=== PATIENT | male | born 1935 | race Caucasian/White ===

== ENCOUNTER → 2016-05-16 | Outpatient (CLI) | payer MEDICARE | END | disposition home or self-care (01) | LOC: LABWHC1 14:16 | PROVIDERS: ATTEND Internal Medicine Clinical Cardiac Electrophysiology | DX: I48.0 Paroxysmal atrial fibrillation (principal) | CPT/HCPCS: 36415; 84443 ==

== ENCOUNTER 2019-12-22 09:36 | Observation (INO) | payer MEDICARE ==
[2019-12-19 11:23] VITALS: BMI 29.8
[~2019-12-22 09:36] MED LIST: HYDROmorphone 0.5 MG/0.5 ML SYRINGE IVP PRN; LACTATED RINGERS 1,000 ML IV SCH; MIDAZOLAM 2 MG/2 ML VIAL IV PRN; SODIUM CHLORIDE 0.9% 1,000 ML IV SCH
[2019-12-22 10:27] LABS: Basophils # (A) 0.1 k/uL (0-0.2); Basophils % (A) 1 %; Eosinophils # (A) 0.4 k/uL (0-0.7); Eosinophils % (A) 5 %; HCT 46.3 % (39.0-53.0); HGB 15.4 gm/dL (13.0-17.5); Lymphocytes # (A) 1.9 k/uL (1.0-4.8); Lymphocytes % (A) 21 %; MCH 30.8 pg (25.0-35.0); MCHC 33.3 g/dL (31.0-37.0); MCV 92.5 fL (80.0-100.0); Monocytes # (A) 0.6 k/uL (0-1.0); Monocytes % (A) 7 %; Neutrophils % (A) 65 %; Platelet Count 271 k/uL (150-450); RDW 14.3 % (11.5-15.5); WBC 9.2 k/uL (3.8-10.6)
[2019-12-22 10:37] LABS: Calcium 9.2 mg/dL (8.4-10.2)
[2019-12-22 10:47] LABS: Potassium 5.2 mmol/L (3.5-5.1)
[2019-12-22] MEDS ORDERED: IV FLUID CONTINUATION 900 ML IV ONE (11:32)
[2019-12-22] MEDS ORDERED: ROCURONIUM 10 MG/ML (10 ML VIAL) IV ONE (11:32)
[2019-12-22] MEDS ORDERED: fentaNYL (PF) 50 MCG/ML 2 ML AMP ONE (11:32)
[2019-12-22] MEDS ORDERED: SUCCINYLCHOLINE CHLORIDE 100 MG/5 ML SYR IV ONE (11:32)
[2019-12-22] MEDS ORDERED: PROPOFOL 10 MG/ML 20 ML VIAL IV ONE (11:32)
[2019-12-22] MEDS ORDERED: ePHEDrine SULFATE/0.9% NACL/PF 50 MG/5 ML SYRINGE IV ONE (11:32)
[2019-12-22] MEDS ORDERED: LIDOCAINE 1% INJ 10MG/ML (20 ML MDV) SQ ONE (12:16)
[2019-12-22] MEDS ORDERED: HEPARIN SODIUM (1,000 UNIT/ML) 1,000 UNIT in SODIUM CHLORIDE 0.9% 1,000 ML IRRIGATION ONE (13:50)
[2019-12-22] MEDS ORDERED: ACETAMINOPHEN TAB 325 MG TAB PO PRN (14:29)
--- NOTE | 2019-12-22 14:38 | P.PRLE ---
RE: [place] Goss Dear Pietro Haynes has documented typical atrial flutter and today he underwent an atrial flutter ablation successfully His A. fib burden is about 13% He will continue ELIQUIS and his cardiac medications as before Thank you for entrusting me with the care of the patient Warm regards Sincerely Aristeo Goldsmith
[2019-12-22] MEDS ORDERED: ACETAMINOPHEN IV (For NPO) 1,000 MG in EMPTY BAG 1 BAG IVPB ONE (15:30)
--- NOTE | 2019-12-22 16:01 | CE ---
CARDIAC ELECTROPHYSIOLOGY REPORT Mr. Goss is an 84-year-old male patient who has a history of atrial fibrillation. His 2D echo showed preserved LV size and systolic function and his recent stress test was normal. He is on flecainide for suppression of atrial fibrillation. He was found to be in typical atrial flutter. He was brought in for an atrial flutter ablation. The patient is brought to the EP lab in a fasting state. Written informed consent was obtained prior to the procedure. The procedure was performed under general anesthesia. Venous sheaths placed in the right and left femoral veins and via these, diagnostic and mapping ablation catheters were placed, an intracardiac echo catheter was placed, coronary sinus catheter was placed. The pacemaker was interrogated and reprogrammed to VVI 40 ppm. At the end of the procedure, the pacemaker was re-interrogated once again and reprogrammed to DDDR mode at 50-130 ppm. Patient was in sinus rhythm the start of the study. Sinus node recovery times at a paced cycle length of 600 milliseconds were 2098 milliseconds. Corrected sinus node recovery times were prolonged. AV node Wenckebach block 520 milliseconds. Sinus cycle length 1109 milliseconds, CA 247 milliseconds, QRS 172 millisecond. The right bundle branch block type and QT 459 milliseconds. Intracardiac echocardiography was performed, the cava tricuspid isthmus was mapped, 3D electro anatomic mapping was performed. A mid isthmus pouch was noted with a step. RF ablation was performed. A complete line of block was made and thereafter pacing maneuvers were performed to confirm this block across the line. The RV lead was carefully avoided during RF ablation. Please note that high pressures were noted on the venous side. LV function on intracardiac echo was normal. Pericardial space was normal at the end of the procedure. All catheters were then removed. Venous closure device was used for 2 of the accesses successfully. Hemostasis was assured. Patient tolerated the procedure well without any acute complications. PLAN: Continue Eliquis. Continue cardiac medications and add Lasix at least 40 mg p.o. daily to his current regimen, BMP and magnesium tomorrow. MMODL / IJN: [id number] /
[2019-12-22] MEDS: APIXABAN 5 MG TAB PO SCH (20:50)
[2019-12-22] MEDS: ASPIRIN 81 MG PO SCH (20:50)
[2019-12-22] MEDS: FLECAINIDE 50 MG TAB PO SCH (20:51)
[2019-12-23] MEDS: FUROSEMIDE 40 MG TAB PO SCH (06:58)
[2019-12-23] MEDS: FLECAINIDE 50 MG TAB PO SCH ×2 (08:22→21:21)
[2019-12-23] MEDS: APIXABAN 5 MG TAB PO SCH (08:22)
[2019-12-23] MEDS: TAMSULOSIN 0.4 MG CAP.ER.24H PO SCH (08:22)
--- NOTE | 2019-12-23 09:02 | US ---
EXAMINATION TYPE: US lower ext pseudo artery LT DATE OF EXAM: 12/23/2019 COMPARISON: NONE CLINICAL HISTORY: r/o pseudoaneurysm. Left groin heart cath performed yesterday. EXAM PERFORMED: Grayscale and color Doppler duplex imaging performed of the groin, post cardiac salud ter to assess for pseudoaneurysm. SIDE PERFORMED: Left Color and Waveform Doppler performed to assess for the presence of pseudoaneurysm; Is there ultrasound evidence of a pseudoaneurysm: Bilobular pseudoaneurysm visualized off of CVA= 6. 4 x 2.3 cm with neck measuring about 0.6 x 0.8 cm. Is there evidence of AV shunting: no Is there a fluid collection present: no IMPRESSION: Bilobed partially thrombosed pseudoaneurysm as measured above.
--- NOTE | 2019-12-23 10:01 | P.EPPROC ---
- EP Procedure Note Electrophysiology Procedure Note: Pacemaker interrogation and reprogramming of the atrial flutter ablation Patient underwent atrial flutter ablation Following that is [employer] medical pacemaker was interrogated Atrial pacing threshold 0.75 V at 0.8 ms, P waves 3.6 mV and pacing impedance 390 ohms R waves 12 mV, pacing threshold 1.25 V at 0.4 ms and pacing impedance of 540 ohms Programming DDDR 5210 PPM long AV delay to avoid RV pacing
[2019-12-23 10:17] LABS: HCT 39.8 % (39.0-53.0); HGB 13.4 gm/dL (13.0-17.5); MCH 31.3 pg (25.0-35.0); MCHC 33.7 g/dL (31.0-37.0); MCV 92.8 fL (80.0-100.0); Mean Platelet Volume 7.4; Platelet Count 215 k/uL (150-450); RBC 4.29 m/uL (4.30-5.90); RDW 14.4 % (11.5-15.5); WBC 9.3 k/uL (3.8-10.6)
[2019-12-23 10:23] LABS: Albumin 3.8 g/dL (3.5-5.0); Magnesium 1.8 mg/dL (1.6-2.3); Potassium 4.6 mmol/L (3.5-5.1); Total Bilirubin 1.4 mg/dL (0.2-1.3); Total Protein 6.9 g/dL (6.3-8.2)
--- NOTE | 2019-12-23 13:29 | P.PN ---
Subjective This is a pleasant 84-year-old male past medical history significant for paroxysmal atrial fibrillation successfully suppressed on flecainide and typical atrial flutter, complete heart block status post permanent pacemaker implantation, hypertension and dyslipidemia. He was brought into the hospital for an elective atrial flutter ablation. He was seen and evaluated this morning. He had a small hematoma to the left groin yesterday after the procedure that was manually compressed. He has significant bruising and tenderness to the area. An ultrasound was requested and revealed a partially thrombosed pseudoaneurysm. Blood pressure 118/71 heart rate 70 afebrile maintaining oxygen saturation on room air. He denies chest pain, shortness of breath, dizziness or palpitations. Currently maintained on Eliquis 5 mg twice a day, aspirin 81 mg at bedtime, flecainide 75 mg twice a day and Lasix 40 mg daily. Laboratory data reviewed, WBC 9.3, hemoglobin 13.4, platelets 215, sodium 137, potassium 4.6, creatinine 1.05, magnesium 1.8 and TSH 0.807. GENERAL: Well-appearing, well-nourished and in no acute distress. NECK: Supple without JVD or thyromegaly. LUNGS: Breath sounds clear to auscultation bilaterally. Respiration equal and un labored. No wheezes, rales or rhonchi. HEART: Regular rate and rhythm with systolic ejection murmur at the left sternal border, no rubs or gallops. S1 and S2 heard. EXTREMITIES: Normal range of motion, no edema. No clubbing or cyanosis. Peripheral pulses intact. Right femoral access site clean, dry and intact with strong femoral pulse no evidence of hematoma and mild ecchymosis. Left femoral access site clean, dry and intact with strong femoral pulse, normal area of swelling the size of a quarter and significant ecchymosis down the medial aspect of the thigh with tenderness on palpation. ASSESSMENT s/p atrial flutter ablation Left groin psuedoaneurysm Permanent pacemaker implantation Hypertension Dyslipidemia PLAN Consult vascular surgery for evaluation of pseudoaneurysm. Continue current medical regimen. Repeat CBC this evening and in the morning. Nurse Practitioner note has been reviewed, I agree with a documented findings and plan of care. Patient was seen and examined. Objective - Vital Signs Vital signs: Vital Signs Temp 97.9 F 12/23/19 07:51 Pulse 70 12/23/19 07:51 Resp 18 12/23/19 07:51 BP 118/71 12/23/19 07:51 Pulse Ox 93 L 12/23/19 07:51 Intake & Output 12/22/19 12/23/19 12/23/19 18:59 06:59 18:59 Intake Total 575 580 Output Total 75 Balance 575 505 Weight 94.9 kg Intake: IV 575 Oral 580 Output: Urine 75 Other: Voiding Method Urinal # Voids 1 1 1 - Labs CBC & Chem 7: 12/23/19 09:18 12/23/19 09:18 Labs: Abnormal Lab Results - Last 24 Hours (Table) 12/23/19 12/23/19 Range/Units 09:18 09:18 RBC 4.29 L (4.30-5.90) m/uL BUN 23 H (9-20) mg/dL Glucose 110 H (74-99) mg/dL Total Bilirubin 1.4 H (0.2-1.3) mg/dL
--- NOTE | 2019-12-23 15:54 | P.GSCN ---
<Shelia Ivan - Last Filed: 12/23/19 15:52> History of Present Illness Consult date: 12/23/19 Reason for Consult: Pseudoaneurysm of left groin Requesting physician: Aristeo Goldsmith History of present illness: This is a pleasant 84-year-old male patient who has a history of atrial fibrillation is been on flecainide for suppression of his atrial fibrillation, he was found to be in typical atrial flutter. He was brought in for an atrial flutter ablation with Dr. Goldsmith yesterday. It was noted that there was high pressures on the venous side a venous closure device was used with reported good hemostasis. He underwent pacemaker interrogation reprogramming of the atrial flutter ablation today. He is on Eliquis. He was noted that he had increased ecchymosis and hematoma at the left groin access site. Patient denies any active bleeding. He states he is able to get up and ambulate, only states he has pain with palpation to the bilateral groins. He is able to move bilateral lower extremities without difficulty. An ultrasound of the left lower extremity artery which showed by low partially thrombosed pseudoaneurysm. Bilobular pseudoaneurysm visualized off of CVA = 6.42.3 cm with neck measuring about 0.6 x 0.8 cm Past Medical History Past Medical History: Cancer Additional Past Medical History / Comment(s): see Dr Goldsmith H&P, skin cancer History of Any Multi-Drug Resistant Organisms: None Reported Past Surgical History: Appendectomy, Hernia Repair, Joint Replacement, Orthopedic Surgery, Pacemaker Additional Past Surgical History / Comment(s): skin cancer removed from shoulder, left hip replacement, tito cataracts Past Anesthesia/Blood Transfusion Reactions: Previous Problems w/ Anesthesia, Motion Sickness Additional Past Anesthesia/Blood Transfusion Reaction / Comm: spinal headache with spinal anesthesia Type of Cardiac Device: Permanent Pacemaker Device Placement Date:: unknown Smoking Status: Former smoker - Past Family History Mother Family Medical History: Diabetes Mellitus Sister(s) Family Medical History: Cancer Additional Family Medical History / Comment(s): Bone CA Brother(s) Additional Family Medical History / Comment(s): Heart issues. Ca of the throat Son(s) Family Medical History: Cancer Medications and Allergies Home Medications Medication Instructions Recorded Confirmed Type RX: Aspirin 81 mg PO HS 06/29/13 12/22/19 History RX: Cholecalciferol [Vitamin D3 2,000 unit PO DAILY 06/29/13 12/22/19 History (25 Mcg = 1000 Iu)] RX: Cyanocobalamin [Vitamin B-12] 1,000 mcg PO DAILY 06/29/13 12/22/19 History RX: Vitamin E (Dl,Tocopheryl Acet) 400 unit PO DAILY 06/29/13 12/22/19 History [Vitamin E] RX: Vits A,C,E/Lutein/Minerals 1 tab PO DAILY 04/09/15 12/22/19 History [Ocuvite with Lutein Tablet] RX: Apixaban [Eliquis] 5 mg PO BID 12/19/19 12/22/19 History RX: Flecainide [Tambocor] 75 mg PO Q12HR 12/19/19 12/22/19 History RX: Tamsulosin HCl [Flomax] 0.4 mg PO DAILY 12/19/19 12/22/19 History RX: traMADol HCL [Ultram] 50 mg PO TID 12/19/19 12/22/19 History Furosemide [Lasix] 40 mg PO DAILY #90 tablet 12/22/19 Rx Allergies Allergy/AdvReac Type Severity Reaction Status Date / Time No Known Allergies Allergy Verified 12/19/19 11:06 Surgical - Exam Vital Signs Temp Pulse Resp BP Pulse Ox 97.9 F 74 16 165/92 96 12/22/19 10:18 12/22/19 10:18 12/22/19 10:18 12/22/19 10:18 12/22/19 10:18 General appearance: The patient is alert, oriented, in no acute distress. HET: Head is normocephalic and atraumatic. Neck: Supple without lymphadenopathy. Trachea midline. Heart: S1 S2. Regular rate and rhythm. Lungs: No crackles or wheezes are heard. Abdomen: Soft, nontender, nondistended with bowel sounds. Groin: Right groin with small area of low since, no active bleeding, no palpable hematoma. Left groin with significant ecchymosis into the thigh, no active bleeding, palpable hematoma in the left groin. Extremities: Normal skin color and turgor. No cyanosis, rash, ulceration, clubbing, or edema. Good capillary refill bilateral lower extremities. Patient is able to move bilateral lower extremities and toes without any difficulty. Palpable bilateral femoral and DP pulses. Neurological: No focal deficits. Strength and sensation are grossly intact. Results Ultrasound of the left lower extremity reviewed - Labs 12/23/19 09:18 12/23/19 09:18 Abnormal Lab Results - Last 24 Hours (Table) 12/23/19 12/23/19 Range/Units 09:18 09:18 RBC 4.29 L (4.30-5.90) m/uL BUN 23 H (9-20) mg/dL Glucose 110 H (74-99) mg/dL Total Bilirubin 1.4 H (0.2-1.3) mg/dL Diabetes panel 12/23/19 Range/Units 09:18 Sodium 137 (137-145) mmol/L Potassium 4.6 (3.5-5.1) mmol/L Chloride 106 (98-107) mmol/L Carbon Dioxide 23 (22-30) mmol/L BUN 23 H (9-20) mg/dL Creatinine 1.05 (0.66-1.25) mg/dL Glucose 110 H (74-99) mg/dL Calcium 9.0 (8.4-10.2) mg/dL AST 28 (17-59) U/L ALT 12 (4-49) U/L Alkaline Phosphatase 78 (38-126) U/L Total Protein 6.9 (6.3-8.2) g/dL Albumin 3.8 (3.5-5.0) g/dL Thyroid panel 12/23/19 Range/Units 09:18 TSH 0.807 (0.465-4.680) mIU/L Calcium panel 12/23/19 Range/Units 09:18 Calcium 9.0 (8.4-10.2) mg/dL Albumin 3.8 (3.5-5.0) g/dL Pituitary panel 12/23/19 Range/Units 09:18 Sodium 137 (137-145) mmol/L Potassium 4.6 (3.5-5.1) mmol/L Chloride 106 (98-107) mmol/L Carbon Dioxide 23 (22-30) mmol/L BUN 23 H (9-20) mg/dL Creatinine 1.05 (0.66-1.25) mg/dL Glucose 110 H (74-99) mg/dL Calcium 9.0 (8.4-10.2) mg/dL TSH 0.807 (0.465-4.680) mIU/L Adrenal panel 12/23/19 Range/Units 09:18 Sodium 137 (137-145) mmol/L Potassium 4.6 (3.5-5.1) mmol/L Chloride 106 (98-107) mmol/L Carbon Dioxide 23 (22-30) mmol/L BUN 23 H (9-20) mg/dL Creatinine 1.05 (0.66-1.25) mg/dL Glucose 110 H (74-99) mg/dL Calcium 9.0 (8.4-10.2) mg/dL Total Bilirubin 1.4 H (0.2-1.3) mg/dL AST 28 (17-59) U/L ALT 12 (4-49) U/L Alkaline Phosphatase 78 (38-126) U/L Total Protein 6.9 (6.3-8.2) g/dL Albumin 3.8 (3.5-5.0) g/dL Assessment and Plan Assessment: 1. Left lower extremity Bilobed partially thrombosed pseudoaneurysm 2. Atrial fibrillation, status post atrial flutter ablation Plan: Left lower extremity speudo artery ultrasound reviewed. Awaiting Dr. Najera to further evaluate patient. Apply pressure dressing. Repeat LLE US tomorrow. Consult Interventional Radiology. Further recommendations to follow. Thank you for this consultation and allowing us take part in the plan of care of the patient during his hospital stay. The impression and plan of care has been dictated as directed. I performed a history and examination of this patient, discussed the same with the dictator. I agree with the dictator's note ,documented as a scribe. Any additional findings or plans will be noted. <Yolande Koo - Last Filed: 12/23/19 16:24> Surgical - Exam Vital Signs Temp Pulse Resp BP Pulse Ox 97.9 F 74 16 165/92 96 12/22/19 10:18 12/22/19 10:18 12/22/19 10:18 12/22/19 10:18 12/22/19 10:18 Results - Labs 12/23/19 09:18 12/23/19 09:18 Abnormal Lab Results - Last 24 Hours (Table) 11/10/20 11/10/20 Range/Units 09:18 09:18 RBC 4.29 L (4.30-5.90) m/uL BUN 23 H (9-20) mg/dL Glucose 110 H (74-99) mg/dL Total Bilirubin 1.4 H (0.2-1.3) mg/dL Diabetes panel 12/23/19 Range/Units 09:18 Sodium 137 (137-145) mmol/L Potassium 4.6 (3.5-5.1) mmol/L Chloride 106 (98-107) mmol/L Carbon Dioxide 23 (22-30) mmol/L BUN 23 H (9-20) mg/dL Creatinine 1.05 (0.66-1.25) mg/dL Glucose 110 H (74-99) mg/dL Calcium 9.0 (8.4-10.2) mg/dL AST 28 (17-59) U/L ALT 12 (4-49) U/L Alkaline Phosphatase 78 (38-126) U/L Total Protein 6.9 (6.3-8.2) g/dL Albumin 3.8 (3.5-5.0) g/dL Thyroid panel 12/23/19 Range/Units 09:18 TSH 0.807 (0.465-4.680) mIU/L Calcium panel 12/23/19 Range/Units 09:18 Calcium 9.0 (8.4-10.2) mg/dL Albumin 3.8 (3.5-5.0) g/dL Pituitary panel 12/23/19 Range/Units 09:18 Sodium 137 (137-145) mmol/L Potassium 4.6 (3.5-5.1) mmol/L Chloride 106 (98-107) mmol/L Carbon Dioxide 23 (22-30) mmol/L BUN 23 H (9-20) mg/dL Creatinine 1.05 (0.66-1.25) mg/dL Glucose 110 H (74-99) mg/dL Calcium 9.0 (8.4-10.2) mg/dL TSH 0.807 (0.465-4.680) mIU/L Adrenal panel 12/23/19 Range/Units 09:18 Sodium 137 (137-145) mmol/L Potassium 4.6 (3.5-5.1) mmol/L Chloride 106 (98-107) mmol/L Carbon Dioxide 23 (22-30) mmol/L BUN 23 H (9-20) mg/dL Creatinine 1.05 (0.66-1.25) mg/dL Glucose 110 H (74-99) mg/dL Calcium 9.0 (8.4-10.2) mg/dL Total Bilirubin 1.4 H (0.2-1.3) mg/dL AST 28 (17-59) U/L ALT 12 (4-49) U/L Alkaline Phosphatase 78 (38-126) U/L Total Protein 6.9 (6.3-8.2) g/dL Albumin 3.8 (3.5-5.0) g/dL
[2019-12-23] MEDS ORDERED: MORPHINE SULFATE 2 MG/ML SYRINGE IVP STA (16:17)
[2019-12-23] MEDS: HYDROcodone/APAP 5-325MG 1 EACH TAB PO PRN (18:02)
[2019-12-23 18:46] LABS: HCT 40.4 % (39.0-53.0); HGB 13.1 gm/dL (13.0-17.5); MCH 29.9 pg (25.0-35.0); MCHC 32.6 g/dL (31.0-37.0); MCV 91.8 fL (80.0-100.0); Platelet Count 231 k/uL (150-450); RDW 14.8 % (11.5-15.5); WBC 10.7 k/uL (3.8-10.6)
[2019-12-23] MEDS: ASPIRIN 81 MG PO SCH (20:50)
[2019-12-24] MEDS: FUROSEMIDE 40 MG TAB PO SCH (06:31)
[2019-12-24 08:00] LABS: HCT 42.7 % (39.0-53.0); HGB 14.1 gm/dL (13.0-17.5); MCH 30.1 pg (25.0-35.0); MCHC 33.1 g/dL (31.0-37.0); Mean Platelet Volume 7.4; Platelet Count 245 k/uL (150-450); RDW 14.7 % (11.5-15.5); WBC 10.4 k/uL (3.8-10.6)
--- NOTE | 2019-12-24 08:40 | US ---
EXAMINATION TYPE: US lower ext pseudo artery LT DATE OF EXAM: 12/24/2019 COMPARISON: Prior exam 12/23/2019 CLINICAL HISTORY: Pseudoaneurysm. reassess pseudo from yesterday EXAM PERFORMED: Grayscale and color Doppler duplex imaging performed of the groin, post cardiac salud ter to assess for pseudoaneurysm. SIDE PERFORMED: Left Color and Waveform Doppler performed to assess for the presence of pseudoaneurysm; Is there ultrasound evidence of a pseudoaneurysm: YES Is there evidence of AV shunting: NO Bilobed pseudo still persists today IMPRESSION: Left groin pseudoaneurysm again noted.
[2019-12-24] MEDS: FLECAINIDE 50 MG TAB PO SCH ×2 (08:54→20:25)
[2019-12-24] MEDS: TAMSULOSIN 0.4 MG CAP.ER.24H PO SCH (08:54)
--- NOTE | 2019-12-24 09:40 | P.PN ---
Subjective Progress Note Date: 12/24/19 Principal diagnosis: Pseudoaneurysm Was seen and examined this morning with Dr. Koo. He denies any severe pain to the left groin. It is tender however to touch. He has had a pressure dressing on overnight. Repeat arterial ultrasound of pseudoaneurysm completed this morning. Interventional radiology has been consult for thrombin injection. Eliquis is on hold at this time. Objective - Vital Signs Vital signs: Vital Signs Temp 98.1 F 12/24/19 08:19 Pulse 91 12/24/19 08:19 Resp 20 12/24/19 08:19 BP 113/69 12/24/19 08:19 Pulse Ox 93 L 12/24/19 08:19 Intake & Output 12/23/19 12/24/19 12/24/19 18:59 06:59 18:59 Output Total 1125 Balance -1125 Output: Urine 1125 Other: Voiding Method Urinal # Voids 1 1 - Exam General appearance: The patient is alert, oriented, in no acute distress. HET: Head is normocephalic and atraumatic. Neck: Supple Heart: S1 S2. Regular rate and rhythm. With systolic murmur. Lungs: No crackles or wheezes are heard. Abdomen: Soft, nontender, nondistended with bowel sounds. No peritoneal signs. No palpable organomegaly or masses. Extremities: Normal bilateral dorsalis pedis pulses. Right groin with small area ecchymosis. Left groin was significant ecchymosis into the medial thigh no active bleeding noted from site. Tenderness to palpation. Neurological: No focal deficits. Strength and sensation are grossly intact. - Labs CBC & Chem 7: 12/24/19 07:24 12/23/19 09:18 Labs: Abnormal Lab Results - Last 24 Hours (Table) 12/23/19 12/23/19 12/23/19 Range/Units 09:18 09:18 18:26 WBC 10.7 H (3.8-10.6) k/uL RBC 4.29 L (4.30-5.90) m/uL BUN 23 H (9-20) mg/dL Glucose 110 H (74-99) mg/dL Total Bilirubin 1.4 H (0.2-1.3) mg/dL Assessment and Plan Assessment: 1. Left lower extremity Bilobed partially thrombosed pseudoaneurysm 2. Atrial fibrillation, status post atrial flutter ablation Plan: Left lower extremity speudo artery ultrasound reviewed. Interventional Radiology consult for thrombin injection. Continue with pressure dressing to the left groin. Continue to hold Eliquis. Further recommendations to follow. Thank you for this consultation and allowing us take part in the plan of care of the patient during his hospital stay. The impression and plan of care has been dictated as directed. I performed a history and examination of this patient, discussed the same with the dictator. I agree with the dictator's note ,documented as a scribe. Any additional findings or plans will be noted.
[2019-12-24] MEDS ORDERED: THROMBIN (BOVINE) 5,000 UNIT VIAL MISCELLANE ONE (11:30)
--- NOTE | 2019-12-24 13:30 | P.PN ---
Subjective This is a pleasant 84-year-old male past medical history significant for paroxysmal atrial fibrillation successfully suppressed on flecainide and typical atrial flutter, complete heart block status post permanent pacemaker implantation, hypertension and dyslipidemia. He was brought into the hospital for an elective atrial flutter ablation. He is seen and examined resting comfortably lying flat in bed in no acute distress. He was seen yesterday by Dr. Koo and a pressure dressing was applied to the left groin access site. He continues to have some mild discomfort to the area but states it is improving. Dr. Koo is recommending interventional radiology consultation for thrombin injection. Eliquis was held last night and again this morning. Blood pressure 114/77 heart rate 86 afebrile maintaining oxygen saturation on room air. Laboratory data reviewed, WBC 10.4, hemoglobin 14.1, platelets 245. Telemetry tracings indicate he is in atrial fibrillation with controlled rates. GENERAL: Well-appearing, well-nourished and in no acute distress. NECK: Supple without JVD or thyromegaly. LUNGS: Breath sounds clear to auscultation bilaterally. Respiration equal and unlabored. No wheezes, rales or rhonchi. HEART: Irregular rate and rhythm with systolic ejection murmur at the left sternal border, no rubs or gallops. S1 and S2 heard. EXTREMITIES: Normal range of motion, no edema. No clubbing or cyanosis. Peripheral pulses intact. Right femoral access site clean, dry and intact with strong femoral pulse no evidence of hematoma and mild ecchymosis. Left femoral access site clean, dry and intact with strong femoral pulse, area of thrill felt on palpation with pressure dressing in place. ASSESSMENT s/p atrial flutter ablation Left groin psuedoaneurysm Permanent pacemaker implantation Hypertension Dyslipidemia PLAN Patient is at increased risk for stroke status post ablation if anticoagulation is held. We recommend resuming as soon as he comes back from his interventional radiology procedure. Repeat CBC in the morning. Nurse Practitioner note has been reviewed, I agree with a documented findings and plan of care. Patient was seen and examined. Objective - Vital Signs Vital signs: Vital Signs Temp 98.1 F 12/24/19 08:19 Pulse 86 12/24/19 13:00 Resp 16 12/24/19 13:00 BP 114/77 12/24/19 13:00 Pulse Ox 94 L 12/24/19 12:45 Intake & Output 12/23/19 12/24/19 12/24/19 18:59 06:59 18:59 Intake Total 340 Output Total 1125 1100 Balance -1125 -760 Intake: Oral 340 Output: Urine 1125 1100 Other: Voiding Method Urinal # Voids 1 1 - Labs CBC & Chem 7: 12/24/19 07:24 12/23/19 09:18 Labs: Abnormal Lab Results - Last 24 Hours (Table) 12/23/19 Range/Units 18:26 WBC 10.7 H (3.8-10.6) k/uL
--- NOTE | 2019-12-24 13:48 | US ---
EXAMINATION TYPE: US inj pseudoaneurysm DATE OF EXAM: 12/24/2019 COMPARISON: Exam from 12/24/2019 and 12/23/2019 at earlier time CLINICAL HISTORY: Left groin pseudoaneurysm status post cardiac catheterization. EXAM PERFORMED: left groin pseudoaneurysm thrombin injection Grayscale and color Doppler duplex imaging performed of the groin, post cardiac catheter to assess fo r pseudoaneurysm. SIDE PERFORMED: Left Following informed consent the skin overlying a suitable path to the aneurysm (was localized and the overlying skin was prepped and draped. Lidocaine was used for local anesthesia. 25-gauge needle was a dvanced under direct ultrasound guidance into the pseudoaneurysm and 100 units of thrombin were injec hamzah. Immediate postprocedure Doppler imaging shows plaque formation within the pseudoaneurysm. Patient remained neurovascularly intact distally. There is no immediate complication. Hemostasis achi eved. Patient remained in stable condition. IMPRESSION: Status post left groin pseudoaneurysm injection, thrombosis of left groin pseudoaneurysm. Recommend left groin ultrasound 12/25/2019 to assess for durability of treatment, his procedure perf ormed by the undersigned.
[2019-12-24 20:16] VITALS: RESP 18
[2019-12-24] MEDS: APIXABAN 5 MG TAB PO SCH (20:25)
[2019-12-24] MEDS: ASPIRIN 81 MG PO SCH (20:25)
[2019-12-24] MEDS: HYDROcodone/APAP 5-325MG 1 EACH TAB PO PRN (22:24)
[2019-12-25 04:33] VITALS: BP 102/57; TEMP 97.5
[2019-12-25] MEDS: FUROSEMIDE 40 MG TAB PO SCH (06:08)
[2019-12-25] MEDS: TAMSULOSIN 0.4 MG CAP.ER.24H PO SCH (08:17)
[2019-12-25] MEDS: APIXABAN 5 MG TAB PO SCH (08:17)
[2019-12-25] MEDS: FLECAINIDE 50 MG TAB PO SCH (08:17)
--- NOTE | 2019-12-25 09:10 | US ---
EXAMINATION TYPE: US lower ext pseudo artery LT DATE OF EXAM: 12/25/2019 COMPARISON: US yesterday CLINICAL HISTORY: pseudoaneurysm. Recheck of left groin pseudoaneurysm, thrombin injection done yeste rday EXAM PERFORMED: Grayscale and color Doppler duplex imaging performed of the groin, post cardiac salud ter to assess for pseudoaneurysm. SIDE PERFORMED: Left Color and Waveform Doppler performed to assess for the presence of pseudoaneurysm; Left groin: 5.5 x 1.5 x 3.8cm thrombosed pseudoaneurysm IMPRESSION: The pseudoaneurysm appears to be thrombosed with no internal flow identified.
[2019-12-25 09:24] VITALS: PULSE 60
[2019-12-25 09:42] LABS: HCT 50.1 % (39.0-53.0); HGB 16.8 gm/dL (13.0-17.5); MCHC 33.4 g/dL (31.0-37.0); MCV 92.7 fL (80.0-100.0); Mean Platelet Volume 6.9; Platelet Count 286 k/uL (150-450); RDW 14.3 % (11.5-15.5); WBC 11.6 k/uL (3.8-10.6)
--- NOTE | 2019-12-30 12:51 | P.DS ---
Providers Date of admission: 12/24/19 14:29 Attending physician: Aristeo Goldsmith Consults: 12/23/19 09:56 Consult Physician Routine Consulting Provider: Thiago Najera Consult Reason/Comments: pseudoaneurysm Do you want consulting provider notified?: Already Contacted Primary care physician: Pietro Clinton [facility] Course: This is a pleasant 84-year-old male past medical history significant for paroxysmal atrial fibrillation successfully suppressed on flecainide and typical atrial flutter, complete heart block status post permanent pacemaker implantation, hypertension and dyslipidemia. He was brought into the hospital for an elective atrial flutter ablation. He is seen and examined resting comfortably lying flat in bed in no acute distress. He underwent successful pseudoaneurysm thrombin injection per Interventional radiology. Repeat groin ultrasound reveals pseudoaneurysm appears to be thrombosed with no internal flow identified. Blood pressure 102/57 heart rate 60 afebrile maintaining oxygen saturation on room air. Laboratory data reviewed, WBC 11.6, hemoglobin 16.8 and platelets 286. GENERAL: Well-appearing, well-nourished and in no acute distress. NECK: Supple without JVD or thyromegaly. LUNGS: Breath sounds clear to auscultation bilaterally. Respiration equal and unlabored. No wheezes, rales or rhonchi. HEART: Irregular rate and rhythm with systolic ejection murmur at the left sternal border, no rubs or gallops. S1 and S2 heard. EXTREMITIES: Normal range of motion, no edema. No clubbing or cyanosis. Peripheral pulses intact. Right femoral access site clean, dry and intact with strong femoral pulse no evidence of hematoma and mild ecchymosis. No thrill on palpation. ASSESSMENT s/p atrial flutter ablation Left groin psuedoaneurysm Permanent pacemaker implantation Hypertension Dyslipidemia PLAN Hemodynamically stable. Continue Eliquis. Follow up appointment with Dr. Goldsmith next week. Follow up with Dr. Koo in 2 weeks. Nurse Practitioner note has been reviewed, I agree with a documented findings and plan of care. Patient was seen and examined. Plan - Discharge Summary Discharge Rx Participant: No New Discharge Prescriptions: New Furosemide [Lasix] 40 mg PO DAILY #90 tablet Continue Cholecalciferol [Vitamin D3 (25 Mcg = 1000 Iu)] 2,000 unit PO DAILY Cyanocobalamin [Vitamin B-12] 1,000 mcg PO DAILY Vitamin E (Dl,Tocopheryl Acet) [Vitamin E] 400 unit PO DAILY Aspirin 81 mg PO HS Vits A,C,E/Lutein/Minerals [Ocuvite with Lutein Tablet] 1 tab PO DAILY traMADol HCL [Ultram] 50 mg PO TID Flecainide [Tambocor] 75 mg PO Q12HR Apixaban [Eliquis] 5 mg PO BID Tamsulosin HCl [Flomax] 0.4 mg PO DAILY Discharge Medication List Aspirin 81 mg PO HS 06/29/13 [History] Cholecalciferol [Vitamin D3 (25 Mcg = 1000 Iu)] 2,000 unit PO DAILY 06/29/13 [History] Cyanocobalamin [Vitamin B-12] 1,000 mcg PO DAILY 06/29/13 [History] Vitamin E (Dl,Tocopheryl Acet) [Vitamin E] 400 unit PO DAILY 06/29/13 [History] Vits A,C,E/Lutein/Minerals [Ocuvite with Lutein Tablet] 1 tab PO DAILY 04/09/15 [History] Apixaban [Eliquis] 5 mg PO BID 12/19/19 [History] Flecainide [Tambocor] 75 mg PO Q12HR 12/19/19 [History] Tamsulosin HCl [Flomax] 0.4 mg PO DAILY 12/19/19 [History] traMADol HCL [Ultram] 50 mg PO TID 12/19/19 [History] Furosemide [Lasix] 40 mg PO DAILY #90 tablet 12/22/19 [Rx] Follow up Appointment(s)/Referral(s): Aristeo Goldsmith MD [STAFF PHYSICIAN] - 12/30/19 2:30 pm (Follow-up with Dr. Goldsmith/Dora Hall/Bridget Carrasco Follow-up in 1 week New medication Lasix 40 mg by mouth daily) Yolande Koo DO [STAFF PHYSICIAN] - 01/07/20 9:00 am Patient Instructions/Handouts: Cardiac Ablation (DC) Activity/Diet/Wound Care/Special Instructions: Post EP study - Ablation instructions 1. Keep access sites dry for 2 days. 2. No heavy lifting or straining for 2 days. 3. Avoid bending the hips repeatedly for 2 days. 4. You may go up and down stairs slowly Call if the following is noted 1. Bleeding, increasing swelling or pain at the access sites. 2. Increasing chest discomfort, especially upon taking a deep breath. 3. Increasing shortness of breath, at rest or with exertion. 4. Undue cough / phlegm 5. Difficulty or pain while swallowing. 6. Pain or change in color in the extremities. 7. Fever, chills, rigors. 8. Increasing headache or neurologic symptoms. 9. Dizziness, fainting, palpitations New medication Lasix 40 mg daily Discharge Disposition: HOME SELF-CARE
== END 2019-12-25 11:47 | disposition home or self-care (01) ==
LOC: CATHEP 09:36 → 3NCARDOBS 15:04 → CATHEP 12-24 14:29 → 3NCARDOBS 12-24 14:29
PROVIDERS: ADMIT Internal Medicine Clinical Cardiac Electrophysiology; ATTEND Internal Medicine Clinical Cardiac Electrophysiology
DX: I48.3 Typical atrial flutter (principal); T81.718A Complication of other artery following a procedure, not elsewhere classified, initial encounter; I44.2 Atrioventricular block, complete; I10 Essential (primary) hypertension; E78.5 Hyperlipidemia, unspecified; I48.0 Paroxysmal atrial fibrillation; Z85.828 Personal history of other malignant neoplasm of skin; Z96.642 Presence of left artificial hip joint; Z98.890 Other specified postprocedural states; Z98.42 Cataract extraction status, left eye; Z98.41 Cataract extraction status, right eye; Z95.0 Presence of cardiac pacemaker; Z87.891 Personal history of nicotine dependence; Z83.3 Family history of diabetes mellitus; Z80.8 Family history of malignant neoplasm of other organs or systems; Z80.0 Family history of malignant neoplasm of digestive organs; Z79.01 Long term (current) use of anticoagulants; Z79.82 Long term (current) use of aspirin; Z79.891 Long term (current) use of opiate analgesic; Z79.899 Other long term (current) drug therapy
CPT/HCPCS: 93005; 93662; 93613; 93653; 80053; 80048; 83735; 84443; 85025; 85027 ×3; 93975 ×3; 93926 ×3; 36002; G0378 ×2; C1894; C1769 ×2; C1760; C1730; C1759; C1893; C1732; J0690; J2001; J3010; J2270; J1644; J0330; J2704

== ENCOUNTER 2020-06-03 20:28 | Emergency (ER) | payer MEDICARE ==
[2020-06-03] MEDS ORDERED: MORPHINE SULFATE 4 MG/ML SYRINGE IV STA (20:30)
[2020-06-03] MEDS ORDERED: SODIUM CHLORIDE 0.9% 500 ML 500 ML IV STA (20:30)
[2020-06-03 20:52] VITALS: RESP 16; TEMP 97.6
[2020-06-03] MEDS ORDERED: fentaNYL (PF) 50 MCG/ML 2 ML AMP IVP STA (21:02)
[2020-06-03] MEDS ORDERED: SODIUM CHLORIDE 0.9% 1,000 ML IV STA (21:06)
[2020-06-03 21:10] LABS: Basophils # (A) 0.1 k/uL (0-0.2); Basophils % (A) 0 %; Eosinophils # (A) 0.1 k/uL (0-0.7); Eosinophils % (A) 0 %; HCT 38.5 % (39.0-53.0); HGB 12.7 gm/dL (13.0-17.5); Lymphocytes # (A) 2.3 k/uL (1.0-4.8); Lymphocytes % (A) 12 %; MCH 30.6 pg (25.0-35.0); MCV 92.7 fL (80.0-100.0); Mean Platelet Volume 7.5; Monocytes % (A) 5 %; Neutrophils # (A) 15.2 k/uL (1.3-7.7); Neutrophils % (A) 81 %; Platelet Count 346 k/uL (150-450); RBC 4.15 m/uL (4.30-5.90); RDW 14.9 % (11.5-15.5); WBC 18.8 k/uL (3.8-10.6)
--- NOTE | 2020-06-03 21:12 | ED ---
General Adult HPI - General Chief complaint: Abdominal Pain Stated complaint: Abd Pain Time Seen by Provider: 06/03/20 20:29 Source: patient, EMS, old records reviewed Mode of arrival: EMS Limitations: no limitations - History of Present Illness Initial comments: Dictation was produced using [employer] dictation software. please excuse any grammatical, word or spelling errors. This patient was cared for during a federal and state declared state of emergency secondary to Covid 19 Chief Complaint: 85-year-old male past medical history of GI bleed, skin cancer, pacemaker since the emergency department for abdominal pain History of Present Illness: Patient is an 85-year-old male he has some comorbidities. Patient states that he's been doing constipation for the last 3 days. Early this morning he went to his urologist office and had an outpatient procedure were small rings were placed in his urethra to treat urethral stenosis. After the procedure at around 3 PM patient began having severe abdominal pain. Patient states he's been struggling with hard stools over the last several days. He tried taking [id number] medications to aid in passing a bowel movement. Patient localizes the pain to his suprapubic and left lower quadrant area. He is never been diagnosed with diverticulitis. He has had GI bleed. Patient has no history of aortic abnormalities. Patient is a Jehovah witness and will not consent to blood products. The ROS documented in this emergency department record has been reviewed and confirmed by me. Those systems with pertinent positive or negative responses have been documented in the HPI. All other systems are other negative and/or noncontributory. PHYSICAL EXAM: General Impression: Alert and oriented x3, pale, mild distress secondary to pain HEENT: Normocephalic atraumatic, extra-ocular movements intact, pupils equal and reactive to light bilaterally, mucous membranes moist. Cardiovascular: Heart regular rate and rhythm Chest: Able to complete full sentences, no retractions, no tachypnea Abdomen: abdomen soft, severe palpatory tenderness and tympany to the lower abdomen worse especially the left lower quadrant, non-distended, no organomegaly Musculoskeletal: Pulses present and equal in all extremities, no peripheral edema Motor: no focal deficits noted Neurological: CN II-XII grossly intact, no focal motor or sensory deficits noted Skin: Intact with no visualized rashes Psych: Anxious ED course: 85-year-old male presents with chief complaint of severe abdominal pain. He states that he has a history of constipation. vital signs upon arrival shows blood pressure of 82/60. Patient is Jehovah witness and is unwilling to consent for any blood products. He takes eliquis prescribed by his paper grader. Laboratory evaluation obtained. Leukocytosis of 18.8. Hemoglobin 12.7. Coag panel is unremarkable. Potassium is 6.5. Metabolic panel shows elevated renal markers. Rest metabolic panel is negative. Given patient's severe abdominal symptoms CT of the abdomen and pelvis was obtained showing 13 x 10 x 10 cm hematoma in the pelvis. Sightly entirely clear where the hematoma is arising from however there is evidence of active extravasation. There does appear to be injury at the site of extraperitoneal urinary bladder which may be from procedure that was performed today. EKG interpretation: Ventricular rate 71, sinus rhythm, right bundle branch block,. Interval to 16, QRS 136, QTC 491. No MT prolongation, no QTC prolongation, no ST or T-wave changes noted. EKG compared to 12/23/2019 showing no changes. Overall, this EKG is unremarkable Discussed patient case with urologist and general surgeon vocational rehabilitation teacher who does not feel patient is appropriate for admission to our hospital. I did speak with [facility], [facility] and [facility] who are all not willing to accept transfer of this patient. Attempt was made to page patient's primary surgeon, Dr. Monterroso or on-call urologist who I'm still waiting to hear back from. After multiple attempts I tried to establish contact with [facility] of neurology. I did talk with answering government service executive Brooke who states that there urology resident on-call is Dr. Pulido. At 11:36 PM we had paged urology service 3 times. After several attempts and several hours of trying to contact [facility] of neurology I finally did get in contact with Dr. Forrester who I discussed patient case with. He requests the patient be transferred to [facility]. Spoke with Dr. Peters whose except patient's care for ER to ER transfer. - Related Data Home Medications Medication Instructions Recorded Confirmed Aspirin 81 mg PO HS 06/29/13 12/22/19 Cholecalciferol [Vitamin D3 (25 2,000 unit PO DAILY 06/29/13 12/22/19 Mcg = 1000 Iu)] Cyanocobalamin [Vitamin B-12] 1,000 mcg PO DAILY 06/29/13 12/22/19 Vitamin E (Dl,Tocopheryl Acet) 400 unit PO DAILY 06/29/13 12/22/19 [Vitamin E] Vits A,C,E/Lutein/Minerals 1 tab PO DAILY 04/09/15 12/22/19 [Ocuvite with Lutein Tablet] Apixaban [Eliquis] 5 mg PO BID 12/19/19 12/22/19 Flecainide [Tambocor] 75 mg PO Q12HR 12/19/19 12/22/19 Tamsulosin HCl [Flomax] 0.4 mg PO DAILY 12/19/19 12/22/19 traMADol HCL [Ultram] 50 mg PO TID 12/19/19 12/22/19 Previous Rx's Medication Instructions Recorded Furosemide [Lasix] 40 mg PO DAILY #90 tablet 12/22/19 Allergies Allergy/AdvReac Type Severity Reaction Status Date / Time No Known Allergies Allergy Verified 12/19/19 11:06 Review of Systems ROS Statement: Those systems with pertinent positive or pertinent negative responses have been documented in the HPI. ROS Other: All systems not noted in ROS Statement are negative. Past Medical History Past Medical History: Cancer Additional Past Medical History / Comment(s): see Dr Agus Sylvester&Asmita, skin cancer History of Any Multi-Drug Resistant Organisms: None Reported Past Surgical History: Appendectomy, Hernia Repair, Joint Replacement, Orthopedic Surgery, Pacemaker Additional Past Surgical History / Comment(s): skin cancer removed from shoulder, left hip replacement, tito cataracts, ring placed in urethra Past Anesthesia/Blood Transfusion Reactions: Previous Problems w/ Anesthesia, Motion Sickness Additional Past Anesthesia/Blood Transfusion Reaction / Comment(s): spinal headache with spinal anesthesia Type of Cardiac Device: Permanent Pacemaker Device Placement Date:: unknown Past Psychological History: No Psychological Hx Reported Smoking Status: Former smoker Past Alcohol Use History: None Reported Past Drug Use History: None Reported - Past Family History Mother Family Medical History: Diabetes Mellitus Sister(s) Family Medical History: Cancer Additional Family Medical History / Comment(s): Bone CA Brother(s) Additional Family Medical History / Comment(s): Heart issues. Ca of the throat Son(s) Family Medical History: Cancer General Exam Limitations: no limitations Course Vital Signs 06/03/20 06/03/20 06/03/20 20:46 21:11 21:33 Temperature 97.6 F Pulse Rate 75 78 69 Respiratory 16 16 16 Rate Blood Pressure 82/60 87/54 98/53 O2 Sat by Pulse 97 97 97 Oximetry 06/03/20 06/03/20 06/03/20 22:02 22:30 22:45 Temperature Pulse Rate 68 72 70 Respiratory 16 16 16 Rate Blood Pressure 94/56 113/82 99/64 O2 Sat by Pulse 95 95 95 Oximetry Medical Decision Making - Lab Data Result diagrams: 06/03/20 20:29 06/03/20 20:29 Lab Results 06/03/20 06/03/20 06/03/20 Range/Units 20:29 20:29 20:29 WBC 18.8 H (3.8-10.6) k/uL RBC 4.15 L (4.30-5.90) m/uL Hgb 12.7 L (13.0-17.5) gm/dL Hct 38.5 L (39.0-53.0) % MCV 92.7 (80.0-100.0) fL MCH 30.6 (25.0-35.0) pg MCHC 33.0 (31.0-37.0) g/dL RDW 14.9 (11.5-15.5) % Plt Count 346 (150-450) k/uL MPV 7.5 Neutrophils % 81 % Lymphocytes % 12 % Monocytes % 5 % Eosinophils % 0 % Basophils % 0 % Neutrophils # 15.2 H (1.3-7.7) k/uL Lymphocytes # 2.3 (1.0-4.8) k/uL Monocytes # 1.0 (0-1.0) k/uL Eosinophils # 0.1 (0-0.7) k/uL Basophils # 0.1 (0-0.2) k/uL PT 11.9 (9.0-12.0) sec INR 1.1 (<1.2) APTT 23.5 (22.0-30.0) sec Sodium 134 L (137-145) mmol/L Potassium 6.5 H* (3.5-5.1) mmol/L Chloride 106 (98-107) mmol/L Carbon Dioxide 20 L (22-30) mmol/L Anion Gap 8 mmol/L BUN 33 H (9-20) mg/dL Creatinine 1.81 H (0.66-1.25) mg/dL Est GFR (CKD-EPI)AfAm 38 (>60 ml/min/1.73 sqM) Est GFR (CKD-EPI)NonAf 33 (>60 ml/min/1.73 sqM) Glucose 147 H (74-99) mg/dL Calcium 9.0 (8.4-10.2) mg/dL Total Bilirubin 1.1 (0.2-1.3) mg/dL AST 26 (17-59) U/L ALT 16 (4-49) U/L Alkaline Phosphatase 95 (38-126) U/L Total Protein 6.8 (6.3-8.2) g/dL Albumin 3.7 (3.5-5.0) g/dL Urine Color Urine Appearance (Clear) Urine pH (5.0-8.0) Ur Specific [place] (1.001-1.035) Urine Protein (Negative) Urine Glucose (UA) (Negative) Urine Ketones (Negative) Urine Blood (Negative) Urine Nitrite (Negative) Urine Bilirubin (Negative) Urine Urobilinogen (<2.0) mg/dL Ur Leukocyte Esterase (Negative) Urine RBC (0-5) /hpf Urine WBC (0-5) /hpf Urine WBC Clumps (None) /hpf Ur Squamous Epith Cells (0-4) /hpf Hyaline Casts (0-2) /lpf Urine Mucus (None) /hpf 06/03/20 Range/Units Unknown WBC (3.8-10.6) k/uL RBC (4.30-5.90) m/uL Hgb (13.0-17.5) gm/dL Hct (39.0-53.0) % MCV (80.0-100.0) fL MCH (25.0-35.0) pg MCHC (31.0-37.0) g/dL RDW (11.5-15.5) % Plt Count (150-450) k/uL MPV Neutrophils % % Lymphocytes % % Monocytes % % Eosinophils % % Basophils % % Neutrophils # (1.3-7.7) k/uL Lymphocytes # (1.0-4.8) k/uL Monocytes # (0-1.0) k/uL Eosinophils # (0-0.7) k/uL Basophils # (0-0.2) k/uL PT (9.0-12.0) sec INR (<1.2) APTT (22.0-30.0) sec Sodium (137-145) mmol/L Potassium (3.5-5.1) mmol/L Chloride (98-107) mmol/L Carbon Dioxide (22-30) mmol/L Anion Gap mmol/L BUN (9-20) mg/dL Creatinine (0.66-1.25) mg/dL Est GFR (CKD-EPI)AfAm (>60 ml/min/1.73 sqM) Est GFR (CKD-EPI)NonAf (>60 ml/min/1.73 sqM) Glucose (74-99) mg/dL Calcium (8.4-10.2) mg/dL Total Bilirubin (0.2-1.3) mg/dL AST (17-59) U/L ALT (4-49) U/L Alkaline Phosphatase (38-126) U/L Total Protein (6.3-8.2) g/dL Albumin (3.5-5.0) g/dL Urine Color Light Red Urine Appearance Cloudy (Clear) Urine pH 6.0 (5.0-8.0) Ur Specific [place] 1.050 H (1.001-1.035) Urine Protein 1+ H (Negative) Urine Glucose (UA) Negative (Negative) Urine Ketones Negative (Negative) Urine Blood Large H (Negative) Urine Nitrite Negative (Negative) Urine Bilirubin Negative (Negative) Urine Urobilinogen <2.0 (<2.0) mg/dL Ur Leukocyte Esterase Small H (Negative) Urine RBC >182 H (0-5) /hpf Urine WBC 102 H (0-5) /hpf Urine WBC Clumps Few H (None) /hpf Ur Squamous Epith Cells 2 (0-4) /hpf Hyaline Casts 9 H (0-2) /lpf Urine Mucus Occasional H (None) /hpf Critical Care Time Critical Care Time: Yes Total Critical Care Time: 33 Disposition Clinical Impression: Intra-abdominal hematoma, Bladder rupture Disposition: OTHER INSTITUTION NOT DEFINED Condition: Critical Referrals: Pietro Clinton MD [Primary Care Provider] - 1-2 days Time of Disposition: 00:34 - Out of Hospital Transfer - Req. Specs Out of Hospital Transfer - Requested Specifics[facility]
[2020-06-03 21:23] LABS: INR 1.1 (<1.2); Partial Thromboplastin Time 23.5 sec (22.0-30.0); Prothrombin Time 11.9 sec (9.0-12.0)
[2020-06-03 21:36] LABS: Albumin 3.7 g/dL (3.5-5.0); Total Bilirubin 1.1 mg/dL (0.2-1.3); Total Protein 6.8 g/dL (6.3-8.2)
[2020-06-03 21:41] LABS: Potassium 6.5 mmol/L (3.5-5.1)
[2020-06-03] MEDS ORDERED: TRANEXAMIC ACID 1,000 MG in SODIUM CHLORIDE 0.9% 100 ML IVPB ONE (21:41)
--- NOTE | 2020-06-03 22:16 | CT ---
EXAMINATION TYPE: CT abdomen pelvis w con DATE OF EXAM: 06/03/2020 COMPARISON: CT abdomen pelvis 07/31/2013. HISTORY: Severe abdominal pain, possible ruptured aorta. Status post urethral procedure today. CT DLP: 1294.3 mGycm Automated exposure control for dose reduction was used. TECHNIQUE: Helical acquisition of images was performed from the lung bases through the pelvis. Coron al and sagittal reformatted images obtained. CONTRAST: Performed without Oral Contrast and with IV Contrast, patient injected with 100 mL of Isovue 300. FINDINGS: LUNG BASES: Mild atelectasis. Cardiac pacemaker leads. No pericardial effusion. There is motion artifact of the upper abdomen. LIVER: Possible too small to characterize hypodense lesions of the liver versus motion artifact. BILIARY SYSTEM: Motion artifact of the gallbladder. No significant biliary ductal dilatation seen. PANCREAS: No peripancreatic inflammation. SPLEEN: Normal in size. ADRENALS: Normal. KIDNEYS: No hydronephrosis.. There are numerous bilateral renal cysts. There are 2 very large exophyt ic cysts of the right kidney redemonstrated from 2014 comparison. The largest right renal cyst measur es 9.3 x 11.9 x 18.7 cm and courses inferiorly along the right paracolic gutter. This cyst previously measured up to 8.5 x 9.9 x 13.2 cm and 2014 comparison. The defect within the cortex associated with the cyst at the anterolateral interpolar region (201:37) and was seen on prior comparison and does n ot represent renal cortical injury. There is likely peripelvic cyst on the right which may be new winsome carlin 2014. No hydroureter bilaterally. BOWEL: No obstruction or thickening. PELVIS/PERITONEUM: Prostate brachytherapy seeds. Hyperdensity within the posterior membranous urethr a (201:97). The urinary bladder is underdistended with circumferential wall thickening, focus of air seen at the bladder dome, with significant pericystic haziness, and significant soft tissue stranding at the bladder dome. The stranding of the bladder dome demonstrates somewhat of a flame shaped appea evans. Within the pelvic and lower abdomen, primarily within the space of Retzius, there is a 13.0 x 10.5 x 10.9 cm hematoma. There is loss of fat plane between the left anterior base of the urinary amara dder and the hematoma (201:77, 203:53). Within the left posterior aspect of the hematoma there are co ursing hyperdense vascular structures concerning for active extravasation (201:78-86). The blood vess els course from the region where the fat plane between the hematoma and the urinary bladder is lost. LYMPH NODES: No lymphadenopathy. VASCULATURE: Abdominal aorta is normal in caliber with mild to moderate calcified atherosclerotic di sease. MUSCULOSKELETAL: Degenerative changes of the spine. Long segment bridging osteophytosis of the infer ior visualized thoracic spine a represent diffuse idiopathic skeletal hyperostosis (DISH). Left hip t otal arthroplasty incompletely visualized. Bilateral gynecomastia. IMPRESSION: 1. There is a 13.0 x 10.5 x 10.9 cm hematoma within the space of Retzius within the pelvis, with int ernal coursing hyperdense vascular structures most likely representing active extravasation. 2. The space of Retzius hematoma demonstrates contiguous appearance and loss of fat plane with the l eft anterior base of the urinary bladder, and the hyperdense areas of active extravasation originate near this region and coarse inferiorly and anteriorly. This may be the site of extraperitoneal urinar y bladder injury status post procedure today. The urinary bladder is incompletely distended, with amara dder wall thickening, and flame-shaped pericystic inflammatory stranding which is also suggestive of extraperitoneal bladder rupture. 3. Hyperdensity within the posterior aspect of the membranous urethra. Uncertain etiology. Findings may be related to surgical device, hemorrhage, or excreted contrast status post procedure. Clinical c orrelation with urology operative report may be helpful. 4. Additional chronic findings as above. Dr. Stella Cuello DO discussed findings with Dr. Robles Garg DO via the phone on 06/03/2020 9 :41 PM at 9:41 PM EST, and results were acknowledged.
[2020-06-04 00:05] LABS: Appearance,Urine Cloudy (Clear); Bilirubin,Urine Negative (Negative); Blood,Urine Large (Negative); Color,Urine Light Red; Glucose,Urine (UA) Negative (Negative); Hyaline Casts,Urine 9 /lpf (0-2); Ketones,Urine Negative (Negative); Leukocyte Esterase,Urine Small (Negative); Mucus,Urine Occasional /hpf; Nitrite,Urine Negative (Negative); Protein,Urine 1+ (Negative); RBC,Urine >182 /hpf (0-5); Squamous Epithelial Cell,Urine 2 /hpf (0-4); Urobilinogen,Urine <2.0 mg/dL (<2.0); WBC,Urine 102 /hpf (0-5)
[2020-06-04] MEDS ORDERED: fentaNYL (PF) 50 MCG/ML 2 ML AMP IVP STA (00:35)
[2020-06-04 00:39] VITALS: BP 99/59; PULSE 72
== END 2020-06-04 01:08 | disposition other institution (70) ==
LOC: EC 20:28
DX: S36.892A Contusion of other intra-abdominal organs, initial encounter (principal); N32.89 Other specified disorders of bladder; Z79.82 Long term (current) use of aspirin; Z85.828 Personal history of other malignant neoplasm of skin; Z87.891 Personal history of nicotine dependence
CPT/HCPCS: 36415; 93005; 80053; 84132; 85025; 85610; 85730; 81001; 87086; 74177; 99285; 96365; 96375; 96376; 96361; J3010 ×2; Q9967

== ENCOUNTER → 2021-04-28 | Outpatient (CLI) | payer MEDICARE ==
--- NOTE | 2021-04-28 12:55 | XR ---
Right shoulder HISTORY: Pain 3 views of the right older, comparison to a previous exam 06/29/2013 Arthropathy is again noted at the acromioclavicular joint, glenohumeral joint shows hypertrophic plascencia ge, marginal spurring, there is high riding shoulder, decreased acromiohumeral distance with some pos sible associated subchondral cyst formation, eburnation. No acute fracture or dislocation is evident, transscapular Y view is thought to be malpositioned. 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 There is thoracic spondylosis. Pacemaker is likely present, there is a generator and leads noted incidentally. 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 Ther e may be chronic rotator cuff tear, correlate.
== END | disposition home or self-care (01) ==
LOC: RADXRMAIN 11:38
PROVIDERS: ATTEND Family Medicine
DX: M19.011 Primary osteoarthritis, right shoulder (principal)

== ENCOUNTER 2021-07-30 14:44 | Emergency (ER) | payer MEDICARE ==
[2021-07-30 14:53] VITALS: BP 137/72; RESP 18; TEMP 98.1
[2021-07-30] MEDS ORDERED: ACETAMINOPHEN TAB 500 MG TAB PO STA (15:41)
[2021-07-30] MEDS ORDERED: DIPH,PERTUS(ACELL)TETVAC-LF 0.5 ML VIAL IM ONE (15:46)
--- NOTE | 2021-07-30 16:39 | ED ---
Fall HPI - General Chief Complaint: Fall Stated Complaint: Fall, blood thinner, possible bleed Time Seen by Provider: 07/30/21 14:50 Source: patient, EMS Mode of arrival: EMS - History of Present Illness Initial Comments: 86-year-old male presents to the emergency room after he sustained a fall. He had just cut the grass outside. He was stimulating when he tripped on a piece o f rock and fell to the ground. He hit the left side of his forehead against concrete. He denies losing consciousness. He is on Eliquis. He was attempting to get himself up off the ground but does have bilateral rotator cuff injuries. States it was extremely difficult and therefore he called out to his son who is able to get him up. He denies any pain in his lower extremity. Does admit to some left shoulder and elbow pain. The left elbow does have an overlying abrasion. No active bleeding at this time. Patient was placed in a c-collar. He denies any neck pain. No weakness in his extremities. He denies any chest pain or shortness of breath. No other alleviating, precipitating or modifying factors - Related Data Home Medications Medication Instructions Recorded Confirmed Aspirin 81 mg PO HS 06/29/13 07/30/21 Vitamin E (Dl,Tocopheryl Acet) 400 unit PO DAILY 06/29/13 07/30/21 [Vitamin E (400 Iu = 180 mg)] Vits A,C,E/Lutein/Minerals 1 tab PO DAILY 04/09/15 07/30/21 [Ocuvite with Lutein Tablet] Tamsulosin HCl [Flomax] 0.8 mg PO HS 12/19/19 07/30/21 traMADol HCL [Ultram] 50 mg PO TID PRN 12/19/19 07/30/21 Apixaban [Eliquis] 2.5 mg PO BID 07/30/21 07/30/21 Cholecalciferol [Vitamin D3 (10 10 mcg PO DAILY 07/30/21 07/30/21 Mcg = 400 Iu)] DULoxetine HCL [Cymbalta] 60 mg PO DAILY 07/30/21 07/30/21 Docusate [Colace] 100 mg PO DAILY 07/30/21 07/30/21 Finasteride [Proscar] 5 mg PO DAILY 07/30/21 07/30/21 Vitamin B 300mg 300 mg PO DAILY 07/30/21 07/30/21 Previous Rx's Medication Instructions Recorded Furosemide [Lasix] 40 mg PO DAILY #90 tablet 12/22/19 Allergies Allergy/AdvReac Type Severity Reaction Status Date / Time No Known Allergies Allergy Verified 07/30/21 16:17 Review of Systems ROS Statement: Those systems with pertinent positive or pertinent negative responses have been documented in the HPI. ROS Other: All systems not noted in ROS Statement are negative. Past Medical History Past Medical History: Cancer Additional Past Medical History / Comment(s): see Dr Goldsmith H&P, skin cancer History of Any Multi-Drug Resistant Organisms: None Reported Past Surgical History: Appendectomy, Hernia Repair, Joint Replacement, Orthopedic Surgery, Pacemaker Additional Past Surgical History / Comment(s): skin cancer removed from shoulder, left hip replacement, tito cataracts, ring placed in urethra Past Anesthesia/Blood Transfusion Reactions: Previous Problems w/ Anesthesia, Motion Sickness Additional Past Anesthesia/Blood Transfusion Reaction / Comment(s): spinal headache with spinal anesthesia Type of Cardiac Device: Permanent Pacemaker Device Placement Date:: unknown Past Psychological History: No Psychological Hx Reported Smoking Status: Former smoker Past Alcohol Use History: None Reported Past Drug Use History: None Reported - Past Family History Mother Family Medical History: Diabetes Mellitus Sister(s) Family Medical History: Cancer Additional Family Medical History / Comment(s): Bone CA Brother(s) Additional Family Medical History / Comment(s): Heart issues. Ca of the throat Son(s) Family Medical History: Cancer General Exam General appearance: alert, in no apparent distress Head exam: Present: normocephalic, other (hematoma with overlying abrasion, left scalp) Eye exam: Present: normal appearance, PERRL, EOMI. Absent: scleral icterus, conjunctival injection, periorbital swelling ENT exam: Present: normal exam, mucous membranes moist Neck exam: Present: normal inspection. Absent: tenderness, meningismus, lymphadenopathy Respiratory exam: Present: normal lung sounds bilaterally. Absent: respiratory distress, wheezes, rales, rhonchi, stridor Cardiovascular Exam: Present: regular rate, normal rhythm, normal heart sounds. Absent: systolic murmur, diastolic murmur, rubs, gallop, clicks GI/Abdominal exam: Present: soft, normal bowel sounds. Absent: distended, tenderness, guarding, rebound, rigid Extremities exam: Present: normal inspection, full ROM, tenderness (left shoulder), normal capillary refill. Absent: pedal edema, joint swelling, calf tenderness Back exam: Present: normal inspection Neurological exam: Present: alert, oriented X3, CN II-XII intact Psychiatric exam: Present: normal affect, normal mood Skin exam: Present: warm, dry, intact, normal color, abrasion (left elbow). Absent: rash Course Vital Signs 07/30/21 07/30/21 14:47 15:53 Temperature 98.1 F Pulse Rate 65 80 Respiratory 18 18 Rate Blood Pressure 137/72 137/72 O2 Sat by Pulse 96 99 Oximetry Medical Decision Making - Medical Decision Making Upon arrival patient is placed into room 6. There are history of physical exam was performed. Patient sent over for CT of his brain and cervical spine which is negative for any acute intracranial process. C-collar is removed and patient has no neck pain. X-rays of the left shoulder and elbow are performed. On imaging the patient does have a suspicious lung mass. Because of this the patient is sent back for dedicated CT of his chest which does demonstrate a shaggy 6 cm left upper lobe lung mass. The patient is informed of this lesion and the concern for malignancy. Patient will need to see his primary care doctor in pulmonology for biopsy. Patient understoo. Son is at bedside and understands. Patient will be discharged home at this time and return for any new or worsening symptoms. Discharged home in stable condition Disposition Clinical Impression: Fall, Concussion without loss of consciousness, Scalp hematoma, Lung mass Disposition: HOME SELF-CARE Condition: Stable Instructions (If sedation given, give patient instructions): Diphtheria/Pertussis/Tetanus Vaccine (By injection), Concussion (ED), Pulmonary Nodules (ED) Additional Instructions: You have a large mass on your left lung that needs to be biopsied. Please follow up with Dr. Clinton - he will refer you to the ultrasound technologist, Dr. Vargas. Please return for any new or worsening symptoms Is patient prescribed a controlled substance at d/c from ED?: No Referrals: Pietro Clinton MD [Primary Care Provider] - 1-2 days Tg Vargas MD [STAFF PHYSICIAN] - 1-2 days Time of Disposition: 18:59
[2021-07-30 16:49] VITALS: PULSE 80
--- NOTE | 2021-07-30 17:16 | XR ---
EXAMINATION TYPE: XR shoulder complete LT DATE OF EXAM: 07/30/2021 COMPARISON: NONE HISTORY: Pain. Fall TECHNIQUE: 3 views FINDINGS: There is no fracture nor dislocation. There is calcification at the greater tuberosity of t he humerus. Scapula is intact. There is left axillary pacemaker. There is a rounded 5 cm infiltrate in the left upper lobe. IMPRESSION: There is evidence of calcific tendinitis at the shoulder joint. No fracture seen. Masslike density left upper lobe. Follow-up is recommended. This appears new compared to old chest x- ray of 04/12/2015. Chest x-ray recommended.
--- NOTE | 2021-07-30 17:17 | XR ---
EXAMINATION TYPE: XR elbow complete LT DATE OF EXAM: 07/30/2021 COMPARISON: NONE HISTORY: Pain TECHNIQUE: 3 view FINDINGS: There is some spurring and calcification at the humeral condyles. Radial head is intact. No sign of joint effusion. IMPRESSION: Calcification at the shoulder joint consistent with old ligamentous injury. No fracture s een. No acute bony abnormality.
--- NOTE | 2021-07-30 17:21 | CT ---
EXAMINATION TYPE: CT brain meenakshi rm con DATE OF EXAM: 07/30/2021 COMPARISON: None HISTORY: Fall, on Eliquis, head injury CT DLP: 1545.4 mGycm Automated exposure control for dose reduction was used. Images of the brain and cervical spine obtained with no contrast. There is cerebral cortical atrophy. There is no mass effect or midline shift. No sign of intracranial hemorrhage. There is left temporal scalp hematoma that measures up to 1 cm in thickness. No evidence of skull fracture. There is normal aeration of the mastoid sinuses. There is normal alignment of the cervical vertebra. There is disc space narrowing at levels from C4 t o C7 with spur formation. There is hypertrophic multilevel mild facet arthropathy. No compression fra cture. Skull base is intact. There is masslike irregular density left upper lobe suspicious for tumor . IMPRESSION: Multilevel cervical spondylotic changes. No fracture seen. There is a 6 cm partly visualized masslike infiltrate left upper lobe suspicious for tumor. Cerebral atrophy. No acute intracranial abnormality. Left temporal scalp hematoma.
--- NOTE | 2021-07-30 18:35 | CT ---
EXAMINATION TYPE: CT chest wo con DATE OF EXAM: 07/30/2021 COMPARISON: CT abdomen 06/03/2020 HISTORY: Mass CT DLP: 373.1 mGycm Automated exposure control for dose reduction was used. Images obtained from the thoracic inlet to the diaphragm with no contrast. There is a shaggy 6 cm masslike infiltrate in the left upper lobe in the posterior segment of the lef t upper lobe. Thoracic aorta is atheromatous. There is 2 cm anterior mediastinal lymph node. There is 1.5 cm pretracheal lymph node. There are some coarse interstitial and reticular density right lung b ase consistent with subsegmental atelectasis and scarring. No pleural effusion. No pericardial effusi on. Heart size is fairly normal. There is coronary artery calcification. No aneurysm seen of the aort a. The thoracic spine is intact. Sternum is intact. Upper abdominal soft tissues show some small calcifi ed gallstones. There is enlarged left adrenal gland with lobulation that measures 2 cm. There are ajith al cortical cysts. There is partial visualization of a cystic mass in the right upper quadrant anteri or to the kidney measuring 10 cm. This appears not changed compared to old exam of the abdomen of 05/14. IMPRESSION: Large left upper lobe mass suggestive of primary malignancy. There are some enlarged mediastinal lymp h nodes that could be metastatic disease. Mild lobulation of the left adrenal gland is stable compare d to old exam and unlikely metastatic disease.
== END 2021-07-30 19:30 | disposition home or self-care (01) ==
LOC: EC 14:44
DX: S06.0X0A Concussion without loss of consciousness, initial encounter (principal); S00.03XA Contusion of scalp, initial encounter; S50.312A Abrasion of left elbow, initial encounter; R91.8 Other nonspecific abnormal finding of lung field; M25.512 Pain in left shoulder; Z87.891 Personal history of nicotine dependence; Z79.82 Long term (current) use of aspirin; Z79.01 Long term (current) use of anticoagulants; Z79.899 Other long term (current) drug therapy; Z23 Encounter for immunization; W01.0XXA Fall on same level from slipping, tripping and stumbling without subsequent striking against object, initial encounter
CPT/HCPCS: 70450; 71250; 72125; 90471; 90715; 99284

== ENCOUNTER → 2021-08-19 | Outpatient (CLI) | payer MEDICARE ==
--- NOTE | 2021-08-22 06:48 | PE ---
EXAMINATION TYPE: PET CT fusion skull to thigh DATE OF EXAM: 08/19/2021 COMPARISON: Chest CT July 30, 2021 and older CTs HISTORY: Abnormal CT. Left-sided lung nodule. TECHNIQUE: Following the intravenous administration of 12.08 mCi of F-18 FDG, whole body images are performed from the skull base to the midthigh. Images are reviewed on the computer in the coronal, a xial, and sagittal planes. Reconstructed rotating images are created on independent workstation and reviewed on the computer. A localization and attenuation correction CT is performed in conjunction with the PET scan. Blood glucose level equals 129. SCAN: Initial Scan FINDINGS: SKULL BASE AND NECK: Mild hypermetabolic uptake surrounds both shoulder joints presumed postinflamma tory in etiology. CHEST, MEDIASTINUM, AND HILAR REGION: Persistent lobulated left upper lung mass measuring 5.8 x 6.0 c m axial image 78 has abnormal hypermetabolic activity, max SUV is 10.51. Few prominent but subcentimeter prevascular lymph nodes with hypermetabolic slightly enlarged 2.1 x 1 .3 cm lymph node just anterior to the left pulmonary artery axial image 91, max SUV is 4.59. No definitive additional areas of abnormal hypermetabolic uptake. ABDOMEN AND PELVIS: Normal excretion is seen. Low dense thickening to both adrenal glands without hyp ermetabolic uptake is consistent with lipid rich hyperplasia. No areas of abnormal hypermetabolic upt joseph. OSSEOUS STRUCTURES: No areas of abnormal hypermetabolic uptake. OTHER CT: Nasal septal deviation to the right is seen. Background mild to moderate underlying emphyse matous change greatest in the upper lobes. Persistent cardiomegaly with dual lead pacemaker. Bilatera l gynecomastia redemonstrated. Gallbladder has distended margins. There are thin-walled cysts in both kidneys. There is persistent r ight peritoneal focal thin-walled fluid collection or cyst extending into the pelvis with local mass effect unchanged from prior CTs. Metallic hardware from left hip arthroplasty causes streak artifact limiting evaluation of pelvic str uctures. Multilevel spurring in the spine is seen. Bilateral pars defect L5 level with subtle spondyl olisthesis is redemonstrated. Stable small to moderate-sized fat-containing umbilical hernia. Mild to moderate calcified plaque of the aorta extends into branch vessels. IMPRESSION: Suspicious left upper lung mass worrisome for neoplasm with suspected prevascular thoraci c adenopathy. No distal metastatic disease.
== END | disposition home or self-care (01) ==
LOC: RADPETMAIN 13:21
PROVIDERS: ATTEND Internal Medicine Critical Care Medicine
DX: R91.1 Solitary pulmonary nodule (principal)
CPT/HCPCS: 78815; A9552

== ENCOUNTER 2021-08-25 10:14 | Day surgery (SDC) | payer MEDICARE ==
[2021-08-22 15:41] VITALS: BMI 26.3
[~2021-08-25 10:14] MED LIST changes: +ALBUTEROL NEB (CONC) 2.5 MG/0.5 ML INHALATION ONE; +DEXAMETHASONE SOD PHOSPHATE 4 MG/ML 1 ML VIAL IV ONE; -HYDROmorphone 0.5 MG/0.5 ML SYRINGE IVP PRN; +LIDOCAINE 1% (10MG/ML) FOR IV START INTRADERMA PRN; +LIDOCAINE 2% (PF) 20 MG/ML 5 ML VIAL INHALATION ONE; +LIDOCAINE VISCOUS 300 MG/15 ML CUP MUCOUS MEM ONE; -MIDAZOLAM 2 MG/2 ML VIAL IV PRN; +ONDANSETRON 4 MG/2 ML VIAL IVP ONE
--- NOTE | 2021-08-25 12:18 | CT ---
EXAMINATION TYPE: CT Chest [facility] Protocol DATE OF EXAM: 08/25/2021 COMPARISON: 08/19/2021, 07/30/2021 HISTORY: Pre Bronchoscopy. CT DLP: 520 mGycm Automated exposure control for dose reduction was used. FINDINGS: There is a 6 cm mass in the posterior segment of the left upper lobe. Diffuse emphysematous changes a re noted. Areas of interlobular septal thickening associated with chronic interstitial lung disease. Apical pleural thickening somewhat nodular on the left stable. cardiac leads are noted. The heart is enlarged. Coronary artery calcification and atherosclerotic casandra nge aorta. There is 2 cm anterior mediastinal lymph node. There is 1.5 cm pretracheal lymph node. Stable. There are coarse interstitial and reticular density right lung base consistent with subsegmental ate lectasis and scarring. No pleural effusion. No pericardial effusion. 1 cm irregular nodule in the ant erior segment of the right upper lobe central area of lucency. Stable from prior exam. Subcentimeter hypodensity in the dome of the liver stable and too small to characterize. The thoracic spine is intact. Sternum is intact. Upper abdominal soft tissues show some small calcifi ed gallstones. There is enlarged left adrenal gland with lobulation that measures 2 cm. There are ajith al cortical cysts. There is partial visualization of a cystic mass in the right upper quadrant anteri or to the kidney measuring 10 cm. This appears not changed compared to old exam of the abdomen of 05/14. IMPRESSION: 1. Large 6 cm left upper lobe lung mass suspicious for malignancy with pathologic mediastinal adenopa thy. 2. stable 1 cm nodule anterior segment right upper lobe. 3. COPD with cardiomegaly and coronary artery calcification. 4. Stable subcentimeter hepatic dome lesion.
[2021-08-25] MEDS ORDERED: SUCCINYLCHOLINE CHLORIDE 100 MG/5 ML SYR IV ONE (12:37)
[2021-08-25] MEDS ORDERED: NEOSTIGMINE 1 MG/ML 10 ML VIAL ONE (12:37)
[2021-08-25] MEDS ORDERED: LIDOCAINE 2% INJ 20 MG/ML (2 ML VIAL) ONE (12:37)
[2021-08-25] MEDS ORDERED: PHENYLEPHRINE-0.9% NACL SYG 1,000 MCG/10 ML SYRINGE ONE (12:37)
[2021-08-25] MEDS ORDERED: PROPOFOL 10 MG/ML 20 ML VIAL IV ONE (12:37)
[2021-08-25] MEDS ORDERED: ROCURONIUM 10 MG/ML (5 ML VIAL) IV ONE (12:37)
[2021-08-25] MEDS ORDERED: GLYCOPYRROLATE 0.2 MG/ML 2 ML VIAL ONE (12:37)
--- NOTE | 2021-08-25 13:30 | P.PCN ---
Date of Procedure: 08/25/21 Operative Findings: Operative Findings: 1 left upper lobe mass Postoperative Diagnosis: 1 left upper lobe mass Procedure(s) Performed: 1 flexible bronchoscopy, airway inspection 2 navigation bronchoscopy, transbronchial biopsy transbronchial brushings and bronchioloalveolar lavage of the left upper lobe mass Surgeon: Girma Porter Top Edge Beveler #1: Ellen Amado Estimated Blood Loss (ml): 5 cc Pathology: TBBX, brushings and bronchioloalveolar lavage of the left upper lobe mass Condition: stable Disposition: same day Operative Findings: The patient had a preoperative computed tomography scan of the chest using the [facility] protocol. The CAT scan images were reviewed. The left upper lobe opacity was identified it was mapped appropriately. The CAT scan images are uploaded into a USB and then into the [employer] Navigation tower. After obtaining the consent the patient was taken to the OR suite he was intubated and put on mechanical ventilation by anesthesia then the scope was advanced to the ET tube until the Trachea was seen and it was normal and then the lexii appears normal then the scope advanced to the left main and VIMAL LB1- LB3 and the left apical posterior segment of the left upper lobe was extrinsically compressed and narrowed and there was evidence of some endobronchial irregularities consistent with tumor. The various segments of the apical segment then were also narrowed. Following that, the scope advanced to the lingula and the LB4 and LB5 were seen and no endobronchial lesions were seen the scope retracted and advanced to the left lower lobes LB6 to LB12 were seen one by one and no endobronchial lesions, then the scope was retracted back to the lexii and advanced to the Right main and RUL RB1 and RB2 and RB3 were seen one by one and no endobronchial lesions were seen the scope. The bronchoscope was then retracted and advanced to the BI and RML RB4 and RB5 were seen and no endobronchial lesions were seen then it was retracted and advanced to the RLL RB6 to RB12 were seen one by one and no endobronchial lesions. Navigation bronchoscopy was performed. The main lexii and the secondary lxeii on the left were used as the reference points and appropriate calibration was done. Following that, using a navigation guidance , the bronchoscope was advanced to the left upper lobe apicalent and various transbronchial biopsies, transbronchial brushings was done without any complications. I also performed a bronchioloalveolar lavage of the left upper lobe apical segmenta total of 60 mL of fluid was infused and 20 mL was suctioned back and this will be sent for cytology and microbial cultures. The bronchoscope was removed, the patient will be extubated and then transferred to recovery. A follow-up chest x-ray will be done in recovery.
[2021-08-25 13:40] VITALS: TEMP 97.1
[2021-08-25 13:50] VITALS: RESP 18
--- NOTE | 2021-08-25 13:58 | XR ---
EXAMINATION TYPE: XR chest 1V DATE OF EXAM: 08/25/2021 COMPARISON: 04/12/2015 HISTORY: Postbiopsy TECHNIQUE: Single frontal view of the chest is obtained. FINDINGS: Chronic deformities of the rib cage. There is a approximate 10-15% left apical pneumothora x. Cardiac device seen there is a large area of consolidation or mass in the left upper lobe. Atheros clerotic change aorta. Chronic rib deformities noted. Report called to the patients nurse 1:55 PM 08/12. IMPRESSION: 1. 10-15 percent left apical pneumothorax. No mediastinal deviation. 2. COPD with suspected chronic interstitial lung disease and left upper lobe mass or masslike consoli dation.
[2021-08-25 14:31] VITALS: BP 102/64
[2021-08-25 14:58] VITALS: PULSE 79
[2021-08-26 02:07] LABS: Appearance,BF Cloudy; Color,BF Red
[2021-08-26 02:30] LABS: Nucleated Cells, Body Fluid 250 /uL; RBC, Body Fluid 20550 /uL
[2021-08-26 03:12] LABS: Mononuclear WBC,Body Fluid 16 %; Polynuclear WBC,Body Fluid 77 %; Total Cells Counted,Body Fluid 100
== END 2021-08-25 15:27 | disposition home or self-care (01) ==
LOC: ORWHC2ENDO 10:14
PROVIDERS: ATTEND Internal Medicine Critical Care Medicine
DX: C34.12 Malignant neoplasm of upper lobe, left bronchus or lung (principal); J43.9 Emphysema, unspecified; J93.9 Pneumothorax, unspecified; I25.10 Atherosclerotic heart disease of native coronary artery without angina pectoris; K76.9 Liver disease, unspecified; I48.91 Unspecified atrial fibrillation; Z87.891 Personal history of nicotine dependence; Z79.82 Long term (current) use of aspirin; Z79.899 Other long term (current) drug therapy; Z79.01 Long term (current) use of anticoagulants; Z80.0 Family history of malignant neoplasm of digestive organs; Z80.8 Family history of malignant neoplasm of other organs or systems; Z83.3 Family history of diabetes mellitus
CPT/HCPCS: 87496; 87498; 87529; 87798 ×2; 88104; 88108; 88305; 89050; 88342; 87252; 88341; 87070; 87205; 87116; 87102; 87206; 71045; 71250; 31625; 31623; 31624; 31627; J1100; J2710; J2405; J2370; J0330; J2704; J2001

== ENCOUNTER 2021-09-04 01:56 | Inpatient (IN) | payer MEDICARE ==
[2021-09-04] MEDS ORDERED: ACETAMINOPHEN TAB 325 MG TAB PO STA (02:10)
[2021-09-04 02:41] LABS: INR 1.2 (<1.2); Partial Thromboplastin Time 26.8 sec (22.0-30.0); Prothrombin Time 12.6 sec (9.0-12.0)
[2021-09-04 02:51] LABS: Basophils # (A) 0.1 k/uL (0-0.2); Basophils % (A) 0 %; Eosinophils # (A) 0.1 k/uL (0-0.7); Eosinophils % (A) 1 %; HCT 39.5 % (39.0-53.0); HGB 13.1 gm/dL (13.0-17.5); Lymphocytes # (A) 0.6 k/uL (1.0-4.8); Lymphocytes % (A) 3 %; MCH 30.7 pg (25.0-35.0); MCHC 33.3 g/dL (31.0-37.0); MCV 92.4 fL (80.0-100.0); Mean Platelet Volume 7.1; Monocytes # (A) 0.9 k/uL (0-1.0); Monocytes % (A) 5 %; Neutrophils # (A) 17.9 k/uL (1.3-7.7); Neutrophils % (A) 91 %; Platelet Count 346 k/uL (150-450); RBC 4.27 m/uL (4.30-5.90); RDW 15.6 % (11.5-15.5); WBC 19.7 k/uL (3.8-10.6)
[2021-09-04] MEDS: SODIUM CHLORIDE 0.9% 1,000 ML IV SCH ×4 (02:55→23:28)
--- NOTE | 2021-09-04 03:14 | XR ---
EXAMINATION TYPE: XR chest 2V DATE OF EXAM: 09/04/2021 COMPARISON: 08/29/2021 HISTORY: Fever. Weakness. TECHNIQUE: FINDINGS: There is 6.5 cm cavitating mass in the left upper lobe. No heart failure. Heart size is normal. There are old right-sided healed rib fractures. No pleural effusion. IMPRESSION: Left upper lobe mass consistent with tumor. There is clearing of the small left apical pn eumothorax compared to old exam.
[2021-09-04 03:24] LABS: Albumin 3.8 g/dL (3.5-5.0); Calcium 8.9 mg/dL (8.4-10.2); Potassium 4.3 mmol/L (3.5-5.1); Total Bilirubin 3.1 mg/dL (0.2-1.3); Total Protein 7.4 g/dL (6.3-8.2)
[2021-09-04 03:39] LABS: Appearance,Urine Cloudy (Clear); Bacteria,Urine Rare /hpf; Bilirubin,Urine Negative (Negative); Blood,Urine Negative (Negative); Color,Urine Yellow; Glucose,Urine (UA) Negative (Negative); Hyaline Casts,Urine 1 /lpf (0-2); Ketones,Urine Negative (Negative); Leukocyte Esterase,Urine Small (Negative); Mucus,Urine Rare /hpf; Nitrite,Urine Negative (Negative); PH, Urine 6.5 (5.0-8.0); Protein,Urine Trace (Negative); RBC,Urine 2 /hpf (0-5); Specific Gravity,Urine 1.017 (1.001-1.035); WBC,Urine 8 /hpf (0-5)
--- NOTE | 2021-09-04 05:16 | CT ---
EXAMINATION TYPE: CT abdomen pelvis w con DATE OF EXAM: 09/04/2021 COMPARISON: 08/19/2021 HISTORY: fever CT DLP: 1104 mGycm Automated exposure control for dose reduction was used. CONTRAST: Performed with IV Contrast, patient injected with 80 mL of Isovue 300. There is some mild atelectasis at the lung bases. No pericardial effusion. No pleural effusion. The b ile ducts are not dilated. Spleen is intact. There is no evidence of pancreatic mass. The stomach is intact. Gallbladder is intact. There is some hypertrophy of the left and right adrenal glands. There are multiple renal cortical cys ts that measure up to 7 cm. There is a large cystic fluid collection in the right side of the abdomen that is apparently retroperitoneal and consistent with a very large lower pole cortical cyst measuri ng 18 cm in length. This is also present on old CT scans. No evidence of solid renal mass. No hydrone phrosis. Ureters are not dilated. There is no retroperitoneal adenopathy. The lumbar vertebra show a first-degree L5-S1 spondylolisthesis. There is L5 spondylolysis. No compression fracture. There is mu ltilevel hypertrophic degenerative disc changes. The bony pelvis is intact. There is left hip prosthe sis. No fracture seen. There is no evidence of free air. No ascites. No evidence of bowel obstruction. Appendix not seen. No sign of thickened appendix. There are prostate implants. IMPRESSION: Multiple renal cortical cysts similar to the old exams. No acute abnormality in the abdomen pelvis. T here are some fibrotic changes in subsegmental atelectasis at the lung bases not changed compared to chest CT scan of 08/25/2021.
--- NOTE | 2021-09-04 05:28 | ED ---
General Adult HPI - General Chief complaint: Weakness Stated complaint: tremors Time Seen by Provider: 09/04/21 02:10 Source: EMS Mode of arrival: EMS - History of Present Illness Initial comments: 's patient is an 86-year-old man who arrives here by ambulance to be evaluated for "tremors". The patient's symptoms started this evening. He was feeling very shaky and not able to stop. Family notes that he also seemed to be somewhat confused and disoriented. When I evaluate the patient here, he states he is feeling better. He is found to have fever in the triage process and was not aware he was having fever. He denied new symptoms of infection. He is having a little bit of cough but felt this was related to lung problem area patient states that over the past couple of weeks she has been having evaluation for suspected left lung tumor. No chest pain. No change in urination. No change in bowel movements. -: minutes(s) Severity scale (1-10): 0 Consistency: constant Improves with: none Worsens with: none Treatments Prior to Arrival: none - Related Data Home Medications Medication Instructions Recorded Confirmed Aspirin 81 mg PO HS 06/29/13 09/04/21 Vitamin E (Dl,Tocopheryl Acet) 400 unit PO DAILY 06/29/13 09/04/21 [Vitamin E (400 Iu = 180 mg)] Vits A,C,E/Lutein/Minerals 1 tab PO DAILY 04/09/15 09/04/21 [Ocuvite with Lutein Tablet] Tamsulosin HCl [Flomax] 0.8 mg PO HS 12/19/19 09/04/21 traMADol HCL [Ultram] 50 mg PO TID PRN 12/19/19 09/04/21 Apixaban [Eliquis] 2.5 mg PO BID 07/30/21 09/04/21 Cholecalciferol [Vitamin D3 (10 10 mcg PO DAILY 07/30/21 09/04/21 Mcg = 400 Iu)] DULoxetine HCL [Cymbalta] 60 mg PO DAILY 07/30/21 09/04/21 Docusate [Colace] 100 mg PO DAILY 07/30/21 09/04/21 Finasteride [Proscar] 5 mg PO DAILY 07/30/21 09/04/21 Vitamin B 300mg 300 mg PO DAILY 07/30/21 09/04/21 Previous Rx's Medication Instructions Recorded Furosemide [Lasix] 40 mg PO DAILY #90 tablet 12/22/19 Allergies Allergy/AdvReac Type Severity Reaction Status Date / Time No Known Allergies Allergy Verified 09/04/21 12:10 Review of Systems ROS Statement: Those systems with pertinent positive or pertinent negative responses have been documented in the HPI. ROS Other: All systems not noted in ROS Statement are negative. Constitutional: Reports: fever, chills Respiratory: Reports: cough. Denies: dyspnea, wheezes Cardiovascular: Denies: palpitations, orthopnea, edema Gastrointestinal: Denies: abdominal pain, nausea, vomiting Genitourinary: Denies: dysuria, hematuria Musculoskeletal: Denies: back pain Skin: Denies: rash Neurological: Denies: headache, weakness Past Medical History Past Medical History: Cancer Additional Past Medical History / Comment(s): see Dr Agus Sylvester&Asmita, skin cancer History of Any Multi-Drug Resistant Organisms: None Reported Past Surgical History: Appendectomy, Hernia Repair, Joint Replacement, Orthopedic Surgery, Pacemaker Additional Past Surgical History / Comment(s): skin cancer removed from shoulder, left hip replacement, tito cataracts, ring placed in urethra Past Anesthesia/Blood Transfusion Reactions: Previous Problems w/ Anesthesia, Motion Sickness Additional Past Anesthesia/Blood Transfusion Reaction / Comment(s): spinal headache with spinal anesthesia Type of Cardiac Device: Permanent Pacemaker Device Placement Date:: unknown Past Psychological History: No Psychological Hx Reported Smoking Status: Former smoker Past Alcohol Use History: None Reported Past Drug Use History: None Reported - Past Family History Mother Family Medical History: Diabetes Mellitus Sister(s) Family Medical History: Cancer Additional Family Medical History / Comment(s): Bone CA Brother(s) Additional Family Medical History / Comment(s): Heart issues. Ca of the throat Son(s) Family Medical History: Cancer General Exam General appearance: alert, in no apparent distress Head exam: Present: atraumatic, normocephalic Eye exam: Present: normal appearance. Absent: scleral icterus, conjunctival injection ENT exam: Present: normal oropharynx Neck exam: Present: normal inspection Respiratory exam: Present: normal lung sounds bilaterally, decreased breath sounds (Left upper). Absent: respiratory distress, wheezes, rhonchi, stridor Cardiovascular Exam: Present: regular rate, normal rhythm, normal heart sounds. Absent: systolic murmur, diastolic murmur, rubs, gallop GI/Abdominal exam: Present: soft. Absent: distended, tenderness, guarding, re bound, rigid, mass Extremities exam: Present: normal inspection, normal capillary refill. Absent: pedal edema, calf tenderness Back exam: Present: normal inspection. Absent: CVA tenderness (R), CVA tenderness (L) Neurological exam: Present: alert Skin exam: Present: warm, dry, intact, normal color. Absent: rash Course Vital Signs 09/04/21 09/04/21 01:58 03:38 Temperature 100.2 F H 99.3 F Pulse Rate 89 Respiratory 20 Rate Blood Pressure 145/81 O2 Sat by Pulse 97 Oximetry EKG Findings - EKG Results: EKG: interpreted by MAURISIO, sinus rhythm EKG shows: tachycardia (Rate 105 bpm) - Blocks, [place], Hypertrophy, ST Abn: AV and intraventricular conduction: right bundle branch block (fixed/intermitt ent, complete/incomplete) QRS axis and voltage: right axis deviation (+90 to +180) Procedures - Sepsis Sepsis Focused Exam #1 Sepsis Focused Exam Complete: Yes Vital Signs & RN Notes Reviewed: Yes Capillary Refill: < 2 Seconds: Fingers Peripheral Pulses: Normal: Radial (R) Skin Color: Normal for Patient Respiratory Exam: rhonchi Cardiovascular Exam: regular rate, normal rhythm Medical Decision Making - Medical Decision Making This patient is an 86-year-old man who arrives to be evaluated for tremors. Appears that he was having Will at home. He is febrile here and he is back to his baseline mental status per the patient's son who is at bedside. Suspect that there is some probable pneumonia. We'll admit for fluid and antibiotics. - Lab Data Result diagrams: 09/05/21 05:57 09/05/21 05:57 Lab Results 09/04/21 09/04/21 09/04/21 Range/Units 02:15 02:15 02:15 WBC 19.7 H (3.8-10.6) k/uL RBC 4.27 L (4.30-5.90) m/uL Hgb 13.1 (13.0-17.5) gm/dL Hct 39.5 (39.0-53.0) % MCV 92.4 (80.0-100.0) fL MCH 30.7 (25.0-35.0) pg MCHC 33.3 (31.0-37.0) g/dL RDW 15.6 H (11.5-15.5) % Plt Count 346 (150-450) k/uL MPV 7.1 Neutrophils % 91 % Lymphocytes % 3 % Monocytes % 5 % Eosinophils % 1 % Basophils % 0 % Neutrophils # 17.9 H (1.3-7.7) k/uL Lymphocytes # 0.6 L (1.0-4.8) k/uL Monocytes # 0.9 (0-1.0) k/uL Eosinophils # 0.1 (0-0.7) k/uL Basophils # 0.1 (0-0.2) k/uL PT 12.6 H (9.0-12.0) sec INR 1.2 H (<1.2) APTT 26.8 (22.0-30.0) sec Sodium 132 L (137-145) mmol/L Potassium 4.3 (3.5-5.1) mmol/L Chloride 99 (98-107) mmol/L Carbon Dioxide 22 (22-30) mmol/L Anion Gap 11 mmol/L BUN 34 H (9-20) mg/dL Creatinine 1.33 H (0.66-1.25) mg/dL Est GFR (CKD-EPI)AfAm 55 (>60 ml/min/1.73 sqM) Est GFR (CKD-EPI)NonAf 48 (>60 ml/min/1.73 sqM) Glucose 128 H (74-99) mg/dL Lactic Ac Sepsis Rflx Plasma Lactic Acid Paul (0.7-2.0) mmol/L Calcium 8.9 (8.4-10.2) mg/dL Total Bilirubin 3.1 H (0.2-1.3) mg/dL AST 527 H (17-59) U/L ALT 274 H (4-49) U/L Alkaline Phosphatase 343 H (38-126) U/L Total Protein 7.4 (6.3-8.2) g/dL Albumin 3.8 (3.5-5.0) g/dL Procalcitonin (0.02-0.09) ng/mL Urine Color Urine Appearance (Clear) Urine pH (5.0-8.0) Ur Specific [place] (1.001-1.035) Urine Protein (Negative) Urine Glucose (UA) (Negative) Urine Ketones (Negative) Urine Blood (Negative) Urine Nitrite (Negative) Urine Bilirubin (Negative) Urine Urobilinogen (<2.0) mg/dL Ur Leukocyte Esterase (Negative) Urine RBC (0-5) /hpf Urine WBC (0-5) /hpf Urine WBC Clumps (None) /hpf Urine Bacteria (None) /hpf Hyaline Casts (0-2) /lpf Urine Mucus (None) /hpf Coronavirus (PCR) (Not Detectd) 09/04/21 09/04/21 09/04/21 Range/Units 02:15 02:15 02:26 WBC (3.8-10.6) k/uL RBC (4.30-5.90) m/uL Hgb (13.0-17.5) gm/dL Hct (39.0-53.0) % MCV (80.0-100.0) fL MCH (25.0-35.0) pg MCHC (31.0-37.0) g/dL RDW (11.5-15.5) % Plt Count (150-450) k/uL MPV Neutrophils % % Lymphocytes % % Monocytes % % Eosinophils % % Basophils % % Neutrophils # (1.3-7.7) k/uL Lymphocytes # (1.0-4.8) k/uL Monocytes # (0-1.0) k/uL Eosinophils # (0-0.7) k/uL Basophils # (0-0.2) k/uL PT (9.0-12.0) sec INR (<1.2) APTT (22.0-30.0) sec Sodium (137-145) mmol/L Potassium (3.5-5.1) mmol/L Chloride (98-107) mmol/L Carbon Dioxide (22-30) mmol/L Anion Gap mmol/L BUN (9-20) mg/dL Creatinine (0.66-1.25) mg/dL Est GFR (CKD-EPI)AfAm (>60 ml/min/1.73 sqM) Est GFR (CKD-EPI)NonAf (>60 ml/min/1.73 sqM) Glucose (74-99) mg/dL Lactic Ac Sepsis Rflx Plasma Lactic Acid Paul 2.3 H* (0.7-2.0) mmol/L Calcium (8.4-10.2) mg/dL Total Bilirubin (0.2-1.3) mg/dL AST (17-59) U/L ALT (4-49) U/L Alkaline Phosphatase (38-126) U/L Total Protein (6.3-8.2) g/dL Albumin (3.5-5.0) g/dL Procalcitonin 0.97 H (0.02-0.09) ng/mL Urine Color Yellow Urine Appearance Cloudy (Clear) Urine pH 6.5 (5.0-8.0) Ur Specific [place] 1.017 (1.001-1.035) Urine Protein Trace H (Negative) Urine Glucose (UA) Negative (Negative) Urine Ketones Negative (Negative) Urine Blood Negative (Negative) Urine Nitrite Negative (Negative) Urine Bilirubin Negative (Negative) Urine Urobilinogen 8.0 (<2.0) mg/dL Ur Leukocyte Esterase Small H (Negative) Urine RBC 2 (0-5) /hpf Urine WBC 8 H (0-5) /hpf Urine WBC Clumps Rare H (None) /hpf Urine Bacteria Rare H (None) /hpf Hyaline Casts 1 (0-2) /lpf Urine Mucus Rare H (None) /hpf Coronavirus (PCR) (Not Detectd) 09/04/21 09/04/21 Range/Units 02:50 05:04 WBC (3.8-10.6) k/uL RBC (4.30-5.90) m/uL Hgb (13.0-17.5) gm/dL Hct (39.0-53.0) % MCV (80.0-100.0) fL MCH (25.0-35.0) pg MCHC (31.0-37.0) g/dL RDW (11.5-15.5) % Plt Count (150-450) k/uL MPV Neutrophils % % Lymphocytes % % Monocytes % % Eosinophils % % Basophils % % Neutrophils # (1.3-7.7) k/uL Lymphocytes # (1.0-4.8) k/uL Monocytes # (0-1.0) k/uL Eosinophils # (0-0.7) k/uL Basophils # (0-0.2) k/uL PT (9.0-12.0) sec INR (<1.2) APTT (22.0-30.0) sec Sodium (137-145) mmol/L Potassium (3.5-5.1) mmol/L Chloride (98-107) mmol/L Carbon Dioxide (22-30) mmol/L Anion Gap mmol/L BUN (9-20) mg/dL Creatinine (0.66-1.25) mg/dL Est GFR (CKD-EPI)AfAm (>60 ml/min/1.73 sqM) Est GFR (CKD-EPI)NonAf (>60 ml/min/1.73 sqM) Glucose (74-99) mg/dL Lactic Ac Sepsis Rflx Y Plasma Lactic Acid Paul (0.7-2.0) mmol/L Calcium (8.4-10.2) mg/dL Total Bilirubin (0.2-1.3) mg/dL AST (17-59) U/L ALT (4-49) U/L Alkaline Phosphatase (38-126) U/L Total Protein (6.3-8.2) g/dL Albumin (3.5-5.0) g/dL Procalcitonin (0.02-0.09) ng/mL Urine Color Urine Appearance (Clear) Urine pH (5.0-8.0) Ur Specific [place] (1.001-1.035) Urine Protein (Negative) Urine Glucose (UA) (Negative) Urine Ketones (Negative) Urine Blood (Negative) Urine Nitrite (Negative) Urine Bilirubin (Negative) Urine Urobilinogen (<2.0) mg/dL Ur Leukocyte Esterase (Negative) Urine RBC (0-5) /hpf Urine WBC (0-5) /hpf Urine WBC Clumps (None) /hpf Urine Bacteria (None) /hpf Hyaline Casts (0-2) /lpf Urine Mucus (None) /hpf Coronavirus (PCR) Not Detected (Not Detectd) Disposition Clinical Impression: Pneumonia, Lung mass, Leukocytosis Disposition: ADMITTED IP TO THIS [facility] Condition: Serious Is patient prescribed a controlled substance at d/c from ED?: No
[2021-09-04] MEDS ORDERED: FAMOTIDINE 20 MG/2 ML VIAL IV SCH (09:00)
[2021-09-04] MEDS: SODIUM CHLORIDE 0.9% 500 ML 500 ML IV SCH ×2 (10:55→10:56)
--- NOTE | 2021-09-04 10:58 | CT ---
EXAMINATION TYPE: CT brain wo con CT DLP: 1188.4 mGycm, Automated exposure control for dose reduction was used. DATE OF EXAM: 09/04/2021 10:52 AM COMPARISON: PET BRAIN 7022 CLINICAL INDICATION:Male, 86 years old with history of rule out mets, Brain mets TECHNIQUE: Brain: Multiple axial CT images of the brain were obtained without IV contrast. FINDINGS: Brain: Extra-axial spaces: No abnormal extra-axial fluid collections. Ventricular system: Within normal limits Cerebral parenchyma: No acute intraparenchymal hemorrhage or mass. The boswell-white junction is well d ifferentiated. Cerebellum: Unremarkable. Mass effect: No evidence of midline shift. Intracranial vasculature: Atherosclerotic calcifications of the intracranial vessels. Soft tissues: Normal. Calvarium/osseous structures: No depressed skull fracture. Paranasal sinuses and mastoid air cells: Mild scattered paranasal sinus disease. Visualized orbits: Bilateral aphakia IMPRESSION: 1. No CT evidence for acute cranial mass. Note that MRI is more sensitive for intracranial metastati c disease. 2. No acute intracranial process.
[2021-09-04] MEDS: traMADol 50 MG TAB PO PRN (11:04)
--- NOTE | 2021-09-04 11:54 | US ---
EXAMINATION TYPE: US gallbladder DATE OF EXAM: 09/04/2021 COMPARISON: CT abdomen and pelvis 09/04/2021. CLINICAL HISTORY: abnormal LFT. Elevated labs EXAM MEASUREMENTS: Liver Length: 18.3 cm Gallbladder Wall: 0.2 cm CBD: 0.8 cm Right Kidney: 11.5 x 5.1 x 6.7 cm Pancreas: obscured by bowel gas Liver: intercostal imaging appears wnl Gallbladder: sludge like fluid level seen. No pericholecystic fluid or wall thickening. No shadowing gallstones. Evidence for sonographic Rubio's sign: no CBD: wnl Right Kidney: 18 cm right lower pole cortical cyst. No hydronephrosis or shadowing calculi. No contou r deforming solid mass. IMPRESSION: * No acute process. * Gallbladder sludge without evidence for acute cholecystitis. * Large right renal cyst as demonstrated on CT.
--- NOTE | 2021-09-04 12:03 | P.CNPUL ---
History of Present Illness Consult date: 09/04/21 Reason for consult: lung mass History of present illness: 86-year-old male patient who is known to me. The patient came in to the hospital because of fever, lethargy over the past 48 hours and generalized weakness and some body tremors and at times he was found to be confused by family. In the emergency, he was suspected to be septic as the patient had a fever and the same time he had a temperature 100.2, mild leukocytosis with white cell count 19.7, and mild lactic acidosis with a lactic acid level of 2.3. UA showed 8 WBCs. COVID 19 testing was negative. Chest showed COPD and the left lung opacity which is a component case of non-small cell lung cancer. Note that the patient is known to me. I working up this patient for a large mass in his left upper lobe that showed intense metabolic activity. Note that the patient presented to me with a large 6 cm left upper lobe mass with some mediastinal lymphadenopathy largest being around 1.5 cm in the pretracheal area and another lesion or now in the inferior mediastinal area. He did have some background COPD. I have elected discussion with this patient's family and son and despite his age and comorbidities, the patient decided to do the biopsy for tissue diagnosis. I performed a bronchoscopy and EBUS of the mediastinal lymph nodes. The mediastinal lymph nodes yielded no evidence of malignancy. 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 The patient had a 15% pneumothorax following the procedure which was monitored on outpatient basis and no pneumothorax recovered on the most recent chest x-ray. The patient currently has no significant sputum production. No chest pain. No falls. No seizure activity and the patient has been placed on 3 L about 2 by nasal cannula with a pulse is 98%. The rest of the blood work showed a white cell count 19.7 with hemoglobin 15.1 and a platelet count of 346, normal coagulation profile, creatinine of 1.33 with a sodium level of 132, and the lactic acid level is down to 1.4. Bilirubin is at 3.1 with an AST of 527 and ALT of 74 and an alkaline phosphatase of 343. Note that a CAT scan of the abdomen was done and it was reported that the gallbladder was unremarkable and the CAT scan of the abdomen and there was no acute intra-abdominal pathology. Fever and sepsis currently under workup. Review of Systems Constitutional: Reports daytime sleepiness, Reports fatigue, Reports weakness Eyes: denies as per HPI, denies blurred vision, denies bulging eye, denies decreased vision, denies diplopia, denies discharge, denies dry eye, denies irritation, denies itching, denies pain, denies photophobia, denies loss of peripheral vision, denies loss of vision, denies tunnel vision/blind spots Ears: bilateral: decreased hearing, deny: ear discharge, earache, tinnitus Ears, nose, mouth and throat: Reports as per HPI Breasts: absent: as per HPI, gynecomastia Cardiovascular: Reports decreased exercise tolerance, Reports dyspnea on exertion Respiratory: Reports dyspnea Gastrointestinal: Reports as per HPI Genitourinary: Reports as per HPI Musculoskeletal: Reports as per HPI Musculoskeletal: absent: ankle pain, ankle stiffness, ankle swelling Integumentary: Reports as per HPI Neurological: Reports confusion, Reports weakness Psychiatric: Reports as per HPI Endocrine: Reports fatigue Hematologic/Lymphatic: Reports as per HPI Allergic/Immunologic: Reports as per HPI Past Medical History Past Medical History: Cancer, Heart Failure, COPD, Diabetes Mellitus, Hearing Disorder / Deafness, Hypertension, Osteoarthritis (OA), Pneumonia, Prostate Disorder Additional Past Medical History / Comment(s): skin cancer, lung cancer,falls, neuropathy, pre diabetic History of Any Multi-Drug Resistant Organisms: None Reported Past Surgical History: Appendectomy, Hernia Repair, Joint Replacement, Orthopedic Surgery, Pacemaker Additional Past Surgical History / Comment(s): skin cancer removed from shoulder , left hip replacement, tito cataracts, ring placed in urethra Past Anesthesia/Blood Transfusion Reactions: Previous Problems w/ Anesthesia, Motion Sickness Additional Past Anesthesia/Blood Transfusion Reaction / Comment(s): spinal headache with spinal anesthesia Type of Cardiac Device: Permanent Pacemaker Device Placement Date:: unknown Past Psychological History: No Psychological Hx Reported Smoking Status: Former smoker Past Alcohol Use History: None Reported Additional Past Alcohol Use History / Comment(s): quit smoking 5 yrs ago, started smoking age 19 Past Drug Use History: None Reported - Past Family History Mother Family Medical History: Diabetes Mellitus Sister(s) Family Medical History: Cancer Additional Family Medical History / Comment(s): Bone CA Brother(s) Additional Family Medical History / Comment(s): Heart issues. Ca of the throat Son(s) Family Medical History: Cancer Medications and Allergies Home Medications Medication Instructions Recorded Confirmed Type Aspirin 81 mg PO HS 06/29/13 08/22/21 History Vitamin E (Dl,Tocopheryl Acet) 400 unit PO DAILY 06/29/13 08/22/21 History [Vitamin E (400 Iu = 180 mg)] Vits A,C,E/Lutein/Minerals 1 tab PO DAILY 04/09/15 08/22/21 History [Ocuvite with Lutein Tablet] Tamsulosin HCl [Flomax] 0.8 mg PO HS 12/19/19 08/25/21 History traMADol HCL [Ultram] 50 mg PO TID PRN 12/19/19 08/25/21 History Furosemide [Lasix] 40 mg PO DAILY #90 tablet 12/22/19 08/25/21 Rx Apixaban [Eliquis] 2.5 mg PO BID 07/30/21 08/25/21 History Cholecalciferol [Vitamin D3 (10 10 mcg PO DAILY 07/30/21 08/22/21 History Mcg = 400 Iu)] DULoxetine HCL [Cymbalta] 60 mg PO DAILY 07/30/21 08/25/21 History Docusate [Colace] 100 mg PO DAILY 07/30/21 08/25/21 History Finasteride [Proscar] 5 mg PO DAILY 07/30/21 08/25/21 History Vitamin B 300mg 300 mg PO DAILY 07/30/21 08/22/21 History Allergies Allergy/AdvReac Type Severity Reaction Status Date / Time No Known Allergies Allergy Verified 08/25/21 10:46 Physical Exam Vitals: Vital Signs Temp Pulse Pulse Resp BP BP Pulse Ox 09/04/21 08:00 98.2 F 78 16 103/55 98 09/04/21 03:38 99.3 F 09/04/21 01:58 100.2 F H 89 20 145/81 97 Intake and Output 09/03/21 09/04/21 09/04/21 22:59 06:59 14:59 Other: Weight 131.088 kg 131.088 kg Results Gen. appearance the patient is calm and comfortable likely distress on 3 L of nasal cannula The patient appeared well nourished and normally developed. Vital signs as documented. Head exam is unremarkable. No scleral icterus or corneal arcus noted. Neck is without jugular venous distension, thyromegaly, or carotid bruits. Carotid upstrokes are brisk bilaterally. Lungs are clear to auscultation and percussion. Cardiac exam reveals the PMI to be normally sized and situated. Rhythm is regular. First and second heart sounds normal. No murmurs, rubs or gallops. Abdominal exam reveals normal bowel sounds, no masses, no organomegaly and no aortic enlargement. Extremities are nonedematous and both femoral and pedal pulses are normal. Examination of the skin revealed no evidence of significant rashes, suspicious appearing nevi or other concerning lesions. Neurologically, the patient is awake and alert and the patient does not have any focal neurological deficit. Cranial nerves are essentially intact. - Laboratory Findings CBC and BMP: 09/04/21 02:15 09/04/21 02:15 PT/INR, D-dimer PT 12.6 sec (9.0-12.0) H 09/04/21 02:15 INR 1.2 (<1.2) H 09/04/21 02:15 Abnormal lab findings: Abnormal Labs 09/04/21 09/04/21 09/04/21 02:15 02:15 02:15 WBC 19.7 H RBC 4.27 L RDW 15.6 H Neutrophils # 17.9 H Lymphocytes # 0.6 L PT 12.6 H INR 1.2 H Sodium 132 L BUN 34 H Creatinine 1.33 H Glucose 128 H Plasma Lactic Acid Paul Total Bilirubin 3.1 H AST 527 H ALT 274 H Alkaline Phosphatase 343 H Urine Protein Ur Leukocyte Esterase Urine WBC Urine WBC Clumps Urine Bacteria Urine Mucus 09/04/21 09/04/21 02:15 02:26 WBC RBC RDW Neutrophils # Lymphocytes # PT INR Sodium BUN Creatinine Glucose Plasma Lactic Acid Paul 2.3 H* Total Bilirubin AST ALT Alkaline Phosphatase Urine Protein Trace H Ur Leukocyte Esterase Small H Urine WBC 8 H Urine WBC Clumps Rare H Urine Bacteria Rare H Urine Mucus Rare H - Diagnostic Findings Chest x-ray: image reviewed Assessment and Plan Plan: Acute febrile illness with leukocytosis and mild lactic acidosis, currently under investigation. The patient is being worked up for underlying sepsis. Exact source is not clear. Acute leukocytosis Squamous cell lung cancer. The patient has a large left upper lobe mass with some mediastinal lymphadenopathy. Bronchoscopy and EBUS yielded a squamous cell carcinoma and the transbronchial biopsies from the left upper lobe was positive. EBUS samplings of the lymph nodes were negative for malignancy. This is a T4 lesion, invading the mediastinum. Please refer to the PET scan. Altered mentation, currently under investigation, possibly related to underlying infection COPD Diabetes mellitus Hypertension Iatrogenic pneumothorax post bronchoscopy, expected outcome of procedure, recovered on subsequent chest x-rays Peripheral neuropathy History of falls Abnormal LFTs, rule out underlying cholecystitis or cholelithiasis Acute kidney injury in the creatinine is up to 1.3 Plan Check pro calcitonin level Check urine and blood cultures Cover the patient with IV Zosyn Monitor the white cell count Obtain ultrasound the gallbladder CAT scan of the abdomen was unremarkable Obtain CAT scan of the brain, noncontrast study. Noted the patient is unable to undergo an MRI because of his underlying pacemaker and foreign bodies Oncology consultation We'll continue to follow
[2021-09-04] MEDS: PIPERACILLIN-TAZOBACTAM 3.375 GM in SODIUM CHLORIDE 0.9% 100 ML IVPB SCH ×2 (12:30→18:55)
--- NOTE | 2021-09-04 12:52 | P.CONS ---
History of Present Illness - Reason for Consult Consult date: 09/04/21 New Diagnosis of Lung Cance Requesting physician: Girma Porter - History of Present Illness We have been asked to further evaluate Mr. Goss regarding new diagnosis of Non-Small Cell Lung Cancer, Squamous. He was found to have a VIMAL lung mass, which he underwent a PET scan revealing suspicious of malignancy, no distant metastatic disease noted. Dr. Porter performed Bronchoscopy earlier this month and pathology has resulted positive for squamous cell carcinoma. He presented to hospital with fever, elevated LFTs. A complete work-up is currently pending. Daughter at bedside and both Sons on phone, COVID is negative, he has an acute increase in liver function. I have discussed the diagnosis, no evidence of distant metastatic disease, the possibility of NGS/PDL1 testing and potential lower dose chemotherapy and radiation, to defer final treatment options to Dr. Altamiarno and Dr. Lanny Fields. All questions answered. He has struggled with constipation therefore has not been eating well. Senna S and Lactulose ordered. CT abdomen revealed renal cysts, no discussion of liver findings. To note he is Jehovah Witness and refuses whole blood transfusions. Review of Systems All systems: negative Constitutional: Reports as per HPI Past Medical History Past Medical History: Cancer, Heart Failure, COPD, Diabetes Mellitus, Hearing Disorder / Deafness, Hypertension, Osteoarthritis (OA), Pneumonia, Prostate Disorder Additional Past Medical History / Comment(s): skin cancer, lung cancer,falls, neuropathy, pre diabetic History of Any Multi-Drug Resistant Organisms: None Reported Past Surgical History: Appendectomy, Hernia Repair, Joint Replacement, Orthopedic Surgery, Pacemaker Additional Past Surgical History / Comment(s): skin cancer removed from shoulder, left hip replacement, tito cataracts, ring placed in urethra Past Anesthesia/Blood Transfusion Reactions: Previous Problems w/ Anesthesia, Motion Sickness Additional Past Anesthesia/Blood Transfusion Reaction / Comm: spinal headache with spinal anesthesia Type of Cardiac Device: Permanent Pacemaker Device Placement Date:: unknown Past Psychological History: No Psychological Hx Reported Smoking Status: Former smoker Past Alcohol Use History: None Reported Additional Past Alcohol Use History / Comment(s): quit smoking 5 yrs ago, started smoking age 19 Past Drug Use History: None Reported - Past Family History Mother Family Medical History: Diabetes Mellitus Sister(s) Family Medical History: Cancer Additional Family Medical History / Comment(s): Bone CA Brother(s) Additional Family Medical History / Comment(s): Heart issues. Ca of the throat Son(s) Family Medical History: Cancer Medications and Allergies Home Medications Medication Instructions Recorded Confirmed Type Aspirin 81 mg PO HS 06/29/13 09/04/21 History Vitamin E (Dl,Tocopheryl Acet) 400 unit PO DAILY 06/29/13 09/04/21 History [Vitamin E (400 Iu = 180 mg)] Vits A,C,E/Lutein/Minerals 1 tab PO DAILY 04/09/15 09/04/21 History [Ocuvite with Lutein Tablet] Tamsulosin HCl [Flomax] 0.8 mg PO HS 12/19/19 09/04/21 History traMADol HCL [Ultram] 50 mg PO TID PRN 12/19/19 09/04/21 History Furosemide [Lasix] 40 mg PO DAILY #90 tablet 12/22/19 09/04/21 Rx Apixaban [Eliquis] 2.5 mg PO BID 07/30/21 09/04/21 History Cholecalciferol [Vitamin D3 (10 10 mcg PO DAILY 07/30/21 09/04/21 History Mcg = 400 Iu)] DULoxetine HCL [Cymbalta] 60 mg PO DAILY 07/30/21 09/04/21 History Docusate [Colace] 100 mg PO DAILY 07/30/21 09/04/21 History Finasteride [Proscar] 5 mg PO DAILY 07/30/21 09/04/21 History Vitamin B 300mg 300 mg PO DAILY 07/30/21 09/04/21 History Allergies Allergy/AdvReac Type Severity Reaction Status Date / Time No Known Allergies Allergy Verified 09/04/21 12:10 Physical Exam Vitals: Vital Signs Temp Pulse Pulse Resp BP BP Pulse Ox 09/04/21 08:00 98.2 F 78 16 103/55 98 09/04/21 03:38 99.3 F 09/04/21 01:58 100.2 F H 89 20 145/81 97 Intake and Output 09/03/21 09/04/21 09/04/21 22:59 06:59 14:59 Other: Weight 131.088 kg 131.088 kg - Constitutional General appearance: cooperative - EENT ENT: hard of hearing, NA/AT - Neck Neck: normal ROM - Respiratory Respiratory: bilateral: diminished - Cardiovascular Rhythm: regularly irregular - Gastrointestinal General gastrointestinal: soft, tenderness - Integumentary Integumentary: pale - Musculoskeletal Musculoskeletal: generalized weakness Results CBC & Chem 7: 09/04/21 02:15 09/04/21 02:15 Labs: Abnormal Lab Results - Last 24 Hours (Table) 09/04/21 09/04/21 09/04/21 Range/Units 02:15 02:15 02:15 WBC 19.7 H (3.8-10.6) k/uL RBC 4.27 L (4.30-5.90) m/uL RDW 15.6 H (11.5-15.5) % Neutrophils # 17.9 H (1.3-7.7) k/uL Lymphocytes # 0.6 L (1.0-4.8) k/uL PT 12.6 H (9.0-12.0) sec INR 1.2 H (<1.2) Sodium 132 L (137-145) mmol/L BUN 34 H (9-20) mg/dL Creatinine 1.33 H (0.66-1.25) mg/dL Glucose 128 H (74-99) mg/dL Plasma Lactic Acid Paul (0.7-2.0) mmol/L Total Bilirubin 3.1 H (0.2-1.3) mg/dL AST 527 H (17-59) U/L ALT 274 H (4-49) U/L Alkaline Phosphatase 343 H (38-126) U/L Urine Protein (Negative) Ur Leukocyte Esterase (Negative) Urine WBC (0-5) /hpf Urine WBC Clumps (None) /hpf Urine Bacteria (None) /hpf Urine Mucus (None) /hpf 09/04/21 09/04/21 Range/Units 02:15 02:26 WBC (3.8-10.6) k/uL RBC (4.30-5.90) m/uL RDW (11.5-15.5) % Neutrophils # (1.3-7.7) k/uL Lymphocytes # (1.0-4.8) k/uL PT (9.0-12.0) sec INR (<1.2) Sodium (137-145) mmol/L BUN (9-20) mg/dL Creatinine (0.66-1.25) mg/dL Glucose (74-99) mg/dL Plasma Lactic Acid Paul 2.3 H* (0.7-2.0) mmol/L Total Bilirubin (0.2-1.3) mg/dL AST (17-59) U/L ALT (4-49) U/L Alkaline Phosphatase (38-126) U/L Urine Protein Trace H (Negative) Ur Leukocyte Esterase Small H (Negative) Urine WBC 8 H (0-5) /hpf Urine WBC Clumps Rare H (None) /hpf Urine Bacteria Rare H (None) /hpf Urine Mucus Rare H (None) /hpf CT scan - abdomen: report reviewed CT scan - pelvis: report reviewed Assessment and Plan (1) Non-small cell cancer of left lung Narrative/Plan: Will await recovery of acute illness and hospitalization and plan to send his pathology for NGS and PDL1 in the interim Current Visit: Yes Status: Acute Code(s): C34.92 - MALIGNANT NEOPLASM OF UNSP PART OF LEFT BRONCHUS OR LUNG SNOMED Code(s): 655012256 (2) Squamous cell lung cancer Current Visit: Yes Status: Acute Code(s): C34.90 - MALIGNANT NEOPLASM OF UNSP PART OF UNSP BRONCHUS OR LUNG SNOMED Code(s): 509572148 (3) Constipation Narrative/Plan: Lactulose to assist in toxin binding in elevated liver, Senna-S BID Increase activity Current Visit: Yes Status: Acute Code(s): K59.00 - CONSTIPATION, UNSPECIFIED SNOMED Code(s): 78513562 (4) Weakness Narrative/Plan: PT/OT to work with patient Incentive spirometer ordered Dieticien Current Visit: Yes Status: Acute Code(s): R53.1 - WEAKNESS SNOMED Code(s): 12973875 (5) Liver enzyme elevation Narrative/Plan: This appears acute and new Acute hepatitis panel, LDH, medication review refrain hepatotoxic medications we have asked for a liver focused review, to ensure no new metastatic disease No evidence of cholelithiasis Coags monitored Current Visit: Yes Status: Acute Code(s): R74.8 - ABNORMAL LEVELS OF OTHER SERUM ENZYMES SNOMED Code(s): 990359334 Plan: All the above and discussion regarding cancer diagnosis and further diagnostics All questions answered >30 minutes discussed with patient, three children
[2021-09-04] MEDS ORDERED: LACTULOSE 20 GM/30 ML CUP PO ONE (17:52)
--- NOTE | 2021-09-04 21:21 | P.HPIM ---
History of Present Illness H&P Date: 09/04/21 Chief Complaint: Tremors 86-year-old man who arrives here by ambulance to be evaluated for "tremors". The patient's symptoms started this evening. He was feeling very shaky and not able to stop. Family notes that he also seemed to be somewhat confused and disoriented. When I evaluate the patient here, he states he is feeling better. He is found to have fever in the triage process and was not aware he was having fever. He denied new symptoms of infection. He is having a little bit of cough but felt this was related to lung problem area patient states that over the past couple of weeks she has been having evaluation for suspected left lung tumor. No chest pain. No change in urination. No change in bowel movements. blood work showed a white cell count 19.7 with hemoglobin 15.1 and a platelet count of 346, normal coagulation profile, creatinine of 1.33 with a sodium level of 132, and the lactic acid level is down to 1.4. Bilirubin is at 3.1 with an AST of 527 and ALT of 74 and an alkaline phosphatase of 343. Note that a CAT scan of the abdomen was done and it was reported that the gallbladder was unremarkable and the CAT scan of the abdomen and there was no acute intra- abdominal pathology. Fever and sepsis currently under workup. Review of Systems REVIEW OF SYSTEMS: CONSTITUTIONAL: No fever, no malaise, no fatigue. HEENT: No recent visual problems or hearing problems. Denied any sore throat. CARDIOVASCULAR: No chest pain, orthopnea, PND, no palpitations, no syncope. PULMONARY: No shortness of breath, no cough, no hemoptysis. GASTROINTESTINAL: No diarrhea, no nausea, no vomiting, no abdominal pain. NEUROLOGICAL: No headaches, no weakness, no numbness. HEMATOLOGICAL: Denies any bleeding or petechiae. GENITOURINARY: Denies any burning micturition, frequency, or urgency. MUSCULOSKELETAL/RHEUMATOLOGICAL: Denies any joint pain, swelling, or any muscle pain. ENDOCRINE: Denies any polyuria or polydipsia. The rest of the 14-point review of systems is negative. Past Medical History Past Medical History: Cancer, Heart Failure, COPD, Diabetes Mellitus, Hearing Disorder / Deafness, Hypertension, Osteoarthritis (OA), Pneumonia, Prostate Disorder Additional Past Medical History / Comment(s): skin cancer, lung cancer,falls, neuropathy, pre diabetic History of Any Multi-Drug Resistant Organisms: None Reported Past Surgical History: Appendectomy, Hernia Repair, Joint Replacement, Orthopedic Surgery, Pacemaker Additional Past Surgical History / Comment(s): skin cancer removed from shoulder, left hip replacement, tito cataracts, ring placed in urethra Past Anesthesia/Blood Transfusion Reactions: Previous Problems w/ Anesthesia, Motion Sickness Additional Past Anesthesia/Blood Transfusion Reaction / Comment(s): spinal headache with spinal anesthesia Type of Cardiac Device: Permanent Pacemaker Device Placement Date:: unknown Past Psychological History: No Psychological Hx Reported Smoking Status: Former smoker Past Alcohol Use History: None Reported Additional Past Alcohol Use History / Comment(s): quit smoking 5 yrs ago, started smoking age 19 Past Drug Use History: None Reported - Past Family History Mother Family Medical History: Diabetes Mellitus Sister(s) Family Medical History: Cancer Additional Family Medical History / Comment(s): Bone CA Brother(s) Additional Family Medical History / Comment(s): Heart issues. Ca of the throat Son(s) Family Medical History: Cancer Medications and Allergies Home Medications Medication Instructions Recorded Confirmed Type Aspirin 81 mg PO HS 06/29/13 09/04/21 History Vitamin E (Dl,Tocopheryl Acet) 400 unit PO DAILY 06/29/13 09/04/21 History [Vitamin E (400 Iu = 180 mg)] Vits A,C,E/Lutein/Minerals 1 tab PO DAILY 04/09/15 09/04/21 History [Ocuvite with Lutein Tablet] Tamsulosin HCl [Flomax] 0.8 mg PO HS 12/19/19 09/04/21 History traMADol HCL [Ultram] 50 mg PO TID PRN 12/19/19 09/04/21 History Furosemide [Lasix] 40 mg PO DAILY #90 tablet 12/22/19 09/04/21 Rx Apixaban [Eliquis] 2.5 mg PO BID 07/30/21 09/04/21 History Cholecalciferol [Vitamin D3 (10 10 mcg PO DAILY 07/30/21 09/04/21 History Mcg = 400 Iu)] DULoxetine HCL [Cymbalta] 60 mg PO DAILY 07/30/21 09/04/21 History Docusate [Colace] 100 mg PO DAILY 07/30/21 09/04/21 History Finasteride [Proscar] 5 mg PO DAILY 07/30/21 09/04/21 History Vitamin B 300mg 300 mg PO DAILY 07/30/21 09/04/21 History Allergies Allergy/AdvReac Type Severity Reaction Status Date / Time No Known Allergies Allergy Verified 09/04/21 12:10 Physical Exam Vitals: Vital Signs Temp Pulse Pulse Resp BP BP Pulse Ox 09/04/21 08:00 98.2 F 78 16 103/55 98 09/04/21 03:38 99.3 F 09/04/21 01:58 100.2 F H 89 20 145/81 97 Intake and Output 09/03/21 09/04/21 09/04/21 22:59 06:59 14:59 Other: Weight 131.088 kg 131.088 kg Head exam: Present: atraumatic, normocephalic Eye exam: Present: normal appearance. Absent: scleral icterus, conjunctival injection ENT exam: Present: normal oropharynx Neck exam: Present: normal inspection Respiratory exam: Present: normal lung sounds bilaterally, decreased breath sounds (Left upper). Absent: respiratory distress, wheezes, rhonchi, stridor Cardiovascular Exam: Present: regular rate, normal rhythm, normal heart sounds. Absent: systolic murmur, diastolic murmur, rubs, gallop GI/Abdominal exam: Present: soft. Absent: distended, tenderness, guarding, rebound, rigid, mass Extremities exam: Present: normal inspection, normal capillary refill. Absent: pedal edema, calf tenderness Back exam: Present: normal inspection. Absent: CVA tenderness (R), CVA tenderness (L) Neurological exam: Present: alert Skin exam: Present: warm, dry, intact, normal color. Absent: rash Results CBC & Chem 7: 09/04/21 02:15 09/04/21 02:15 Labs: Abnormal Lab Results - Last 24 Hours (Table) 09/04/21 09/04/21 09/04/21 Range/Units 02:15 02:15 02:15 WBC 19.7 H (3.8-10.6) k/uL RBC 4.27 L (4.30-5.90) m/uL RDW 15.6 H (11.5-15.5) % Neutrophils # 17.9 H (1.3-7.7) k/uL Lymphocytes # 0.6 L (1.0-4.8) k/uL PT 12.6 H (9.0-12.0) sec INR 1.2 H (<1.2) Sodium 132 L (137-145) mmol/L BUN 34 H (9-20) mg/dL Creatinine 1.33 H (0.66-1.25) mg/dL Glucose 128 H (74-99) mg/dL Plasma Lactic Acid Paul (0.7-2.0) mmol/L Total Bilirubin 3.1 H (0.2-1.3) mg/dL AST 527 H (17-59) U/L ALT 274 H (4-49) U/L Alkaline Phosphatase 343 H (38-126) U/L Urine Protein (Negative) Ur Leukocyte Esterase (Negative) Urine WBC (0-5) /hpf Urine WBC Clumps (None) /hpf Urine Bacteria (None) /hpf Urine Mucus (None) /hpf 09/04/21 09/04/21 Range/Units 02:15 02:26 WBC (3.8-10.6) k/uL RBC (4.30-5.90) m/uL RDW (11.5-15.5) % Neutrophils # (1.3-7.7) k/uL Lymphocytes # (1.0-4.8) k/uL PT (9.0-12.0) sec INR (<1.2) Sodium (137-145) mmol/L BUN (9-20) mg/dL Creatinine (0.66-1.25) mg/dL Glucose (74-99) mg/dL Plasma Lactic Acid Paul 2.3 H* (0.7-2.0) mmol/L Total Bilirubin (0.2-1.3) mg/dL AST (17-59) U/L ALT (4-49) U/L Alkaline Phosphatase (38-126) U/L Urine Protein Trace H (Negative) Ur Leukocyte Esterase Small H (Negative) Urine WBC 8 H (0-5) /hpf Urine WBC Clumps Rare H (None) /hpf Urine Bacteria Rare H (None) /hpf Urine Mucus Rare H (None) /hpf Thrombosis Risk Factor Assmnt - Choose All That Apply Any of the Below Risk Factors Present?: Yes Each Factor Represents 1 point: Abnormal pulmonary function (COPD), Obesity (BMI >25), Serious lung disease incl. pneumonia (< 1month) Other Risk Factors: Yes Each Risk Factor Represents 3 Points: Age 75 years or older Other congenital or acquired thrombophilia - If yes, enter type in comment: No Thrombosis Risk Factor Assessment Total Risk Factor Score: 6 Thrombosis Risk Factor Assessment Level: High Risk Assessment and Plan Assessment: 1. Leukocytosis with fever and mild lactic acidosis; possible sepsis; source is not clear - Patient has been placed on IV Zosyn - Patient has been pancultured; monitor CBC, CRP and pro-calcitonin 2. Squamous cell lung carcinoma Patient presented with large 6 cm left upper lobe mass with some mediastinal lymphadenopathy largest being around 1.5 cm in the pretracheal area and another lesion or now in the inferior mediastinal area; the patient decided to do the biopsy for tissue diagnosis; he underwent bronchoscopy and EBUS of the mediastinal lymph nodes. The mediastinal lymph nodes yielded no evidence of malignancy. 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 The patient had a 15% pneumothorax following the procedure which was monitored on outpatient basis and no pneumothorax recovered on the most recent chest x-ray. - Consult pulmonology and oncology 3. Altered mental status; likely related to infection 4. COPD; not in exacerbation; continue with home in immunotherapy 5. Diabetes mellitus; monitor Accu-Cheks every seizures with insulin sliding scale 6. Hypertension; currently not on the hypertensive therapy 7. Peripheral neuropathy 8. Transaminitis; rule out acute cholecystitis versus cholelithiasis 9. Acute renal injury; patient has been placed on IV fluids in form of normal saline; monitor renal function and electrolytes; avoid nephrotoxins and hypotension DVT prophylaxis; SCDs/subcu heparin CODE STATUS; DO NOT RESUSCITATE
[2021-09-04] MEDS: SENNOSIDES-DOCUSATE SODIUM 1 EACH TAB PO SCH (22:22)
[2021-09-04] MEDS: TAMSULOSIN 0.4 MG CAP.ER.24H PO SCH (22:22)
[2021-09-04] MEDS: ASPIRIN 81 MG PO SCH (22:23)
[2021-09-04] MEDS: APIXABAN 2.5 MG TABLET PO SCH (22:23)
[2021-09-04 22:55] LABS: % Iron Saturation 10.34 (15.00-50.00); Amylase 29 U/L (23-121); Iron 25 ug/dL (65-175); LDH 210 U/L (120-246); Total Iron Binding Capacity 238 ug/dL (228-460)
[2021-09-04 22:58] LABS: Hepatitis A Antibody IgM Nonreactive (Nonreactive); Hepatitis B Core IgM Nonreactive (Nonreactive); Hepatitis B Surface Antigen Nonreactive (Nonreactive); Hepatitis C IgG Antibody Nonreactive (Nonreactive)
[2021-09-04 23:07] LABS: Lipase 17 U/L (14-60); Vitamin B12 >2000.0 pg/mL (200.0-944.0)
[2021-09-05] MEDS: PIPERACILLIN-TAZOBACTAM 3.375 GM in SODIUM CHLORIDE 0.9% 100 ML IVPB SCH ×3 (02:09→19:08)
[2021-09-05] MEDS: DOCUSATE 100 MG CAP PO SCH (07:55)
[2021-09-05] MEDS: DULoxetine HCL 60 MG CAPSULE.DR PO SCH (07:55)
[2021-09-05] MEDS: SENNOSIDES-DOCUSATE SODIUM 1 EACH TAB PO SCH ×2 (07:55→20:47)
[2021-09-05] MEDS: FUROSEMIDE 40 MG TAB PO SCH (07:55)
[2021-09-05] MEDS: FINASTERIDE 5 MG TAB PO SCH (07:55)
[2021-09-05] MEDS: APIXABAN 2.5 MG TABLET PO SCH ×2 (07:55→20:48)
[2021-09-05] MEDS: FAMOTIDINE 20 MG/2 ML VIAL IV SCH (07:56)
[2021-09-05] MEDS: CHOLECALCIFEROL 10 MCG (400 IU) TABLET PO SCH (07:56)
--- NOTE | 2021-09-05 08:28 | P.PN ---
Subjective Principal diagnosis: Non-small cell lung cancer This is a continue pressure 78-year-old white male who was essentially found to have non-small cell cancer. The patient is resting comfortably this morning. Appreciate pulmonology and oncology consult. The patient's resting comfortably no voiding difficulties. Objective - Vital Signs Vital signs: Vital Signs Temp 98.0 F 09/05/21 08:07 Pulse 57 L 09/05/21 08:07 Resp 16 09/05/21 08:07 BP 117/64 09/05/21 08:07 Pulse Ox 97 09/05/21 08:07 FiO2 Intake & Output 09/04/21 09/05/21 09/05/21 18:59 06:59 18:59 Weight 131.088 kg Other: Voiding Method Toilet Toilet # Voids 3 2 # Bowel Movements 1 - Constitutional General appearance: Present: average body habitus - EENT Eyes: Absent: abnormal pupil - Neck Neck: Absent: lymphadenopathy - Respiratory Respiratory: bilateral: diminished - Cardiovascular Rhythm: regular Heart sounds: normal: S1, S2 Abnormal Heart Sounds: Absent: S3 Gallop - Gastrointestinal General gastrointestinal: Present: soft. Absent: tenderness - Labs CBC & Chem 7: 09/04/21 02:15 09/04/21 02:15 Labs: Abnormal Lab Results - Last 24 Hours (Table) 09/04/21 09/04/21 09/04/21 Range/Units 02:15 18:05 18:05 ESR 59 H (0-15) mm/hr Iron 25 L (65-175) ug/dL % Saturation 10.34 L (15.00-50.00) Transferrin 170.0 L (204.0-354.0) mg/dL Ferritin 830.0 H (22.0-322.0) ng/mL Vitamin B12 >2000.0 H (200.0-944.0) pg/mL Procalcitonin 0.97 H (0.02-0.09) ng/mL 09/04/21 Range/Units 18:05 ESR (0-15) mm/hr Iron 25 L (65-175) ug/dL % Saturation (15.00-50.00) Transferrin (204.0-354.0) mg/dL Ferritin (22.0-322.0) ng/mL Vitamin B12 (200.0-944.0) pg/mL Procalcitonin (0.02-0.09) ng/mL Microbiology - Last 24 Hours (Table) 09/04/21 02:20 Blood Culture - Preliminary Blood No Growth after 24 hours 09/04/21 02:15 Blood Culture - Preliminary Blood No Growth after 24 hours Assessment and Plan (1) Constipation Current Visit: Yes Status: Acute Code(s): K59.00 - CONSTIPATION, UNSPECIFIED SNOMED Code(s): 38148391 (2) Liver enzyme elevation Current Visit: Yes Status: Acute Code(s): R74.8 - ABNORMAL LEVELS OF OTHER SERUM ENZYMES SNOMED Code(s): 129028290 (3) Non-small cell cancer of left lung Current Visit: Yes Status: Acute Code(s): C34.92 - MALIGNANT NEOPLASM OF UNSP PART OF LEFT BRONCHUS OR LUNG SNOMED Code(s): 520338589 (4) Squamous cell lung cancer Current Visit: Yes Status: Acute Code(s): C34.90 - MALIGNANT NEOPLASM OF UNSP PART OF UNSP BRONCHUS OR LUNG SNOMED Code(s): 938801184 (5) Weakness Current Visit: Yes Status: Acute Code(s): R53.1 - WEAKNESS SNOMED Code(s): 76420841 Plan: Continue supportive care. I did discuss with him that he needs to understand what the possible treatment options are. The patient is agreeable to this. Appreciate multiple consultants input.
[2021-09-05 09:13] LABS: Basophils # (A) 0.03 X 10*3/uL (0.00-0.10); Basophils % (A) 0.3 %; Eosinophils # (A) 0.46 X 10*3/uL (0.04-0.35); Eosinophils % (A) 4.1 %; HCT 34.2 % (39.6-50.0); HGB 10.9 g/dL (13.0-17.0); Immature Grans, Automated 0.4 %; Lymphocytes % (A) 10.6 %; MCH 29.1 pg (27.0-32.0); MCHC 31.9 g/dL (32.0-37.0); MCV 91.2 fL (80.0-97.0); Mean Platelet Volume 9.8 fL (9.5-12.2); Monocytes # (A) 1.12 X 10*3/uL (0.20-1.00); Monocytes % (A) 9.9 %; NRBC Per 100 WBC 0 /100 WBCS (0.0-0.0); Neutrophils # (A) 8.49 X 10*3/uL (1.80-7.70); Neutrophils % (A) 74.7 %; Platelet Count 244 X 10*3/uL (140-440); RBC 3.75 X 10*6/uL (4.40-5.60); RDW 16.5 % (11.5-14.5); WBC 11.35 X 10*3/uL (4.50-10.00)
[2021-09-05 09:24] LABS: African American GFR (CKD) 61.6 (60.0-200.0); Albumin 3.1 g/dL (3.8-4.9); Albumin/Globulin Ratio 1.1 (1.60-3.17); Anion Gap 12.2 mmol/L (10.00-18.00); BUN/Creat Ratio 17.52 Ratio (12.00-20.00); Blood Urea Nitrogen 21.2 mg/dL (9.0-27.0); Calcium 8.9 mg/dL (8.7-10.3); Carbon Dioxide 22.2 mmol/L (20.0-27.5); Globulin 2.8 g/dL (1.6-3.3); Non-African American GFR(CKD) 53.1 (60.0-200.0); Potassium 4.3 mmol/L (3.5-5.5); Total Protein 5.9 g/dL (6.2-8.2)
--- NOTE | 2021-09-05 13:09 | P.PN ---
Subjective Progress Note Date: 09/05/21 Principal diagnosis: Lung mass 86-year-old male patient who is known to me. The patient came in to the hospital because of fever, lethargy over the past 48 hours and generalized weakness and some body tremors and at times he was found to be confused by family. In the emergency, he was suspected to be septic as the patient had a fever and the same time he had a temperature 100.2, mild leukocytosis with white cell count 19.7, and mild lactic acidosis with a lactic acid level of 2.3. UA showed 8 WBCs. COVID 19 testing was negative. Chest showed COPD and the left lung opacity which is a component case of non-small cell lung cancer. Note that the patient is known to me. I working up this patient for a large mass in his left upper lobe that showed intense metabolic activity. Note that the patient presented to me with a large 6 cm left upper lobe mass with some mediastinal lymphadenopathy largest being around 1.5 cm in the pretracheal area and another lesion or now in the inferior mediastinal area. He did have some background COPD. I have elected discussion with this patient's family and son and despite his age and comorbidities, the patient decided to do the biopsy for tissue diagnosis. I performed a bronchoscopy and EBUS of the mediastinal lymph nodes. The mediastinal lymph nodes yielded no evidence of malignancy. 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 The patient had a 15% pneumothorax following the procedure which was monitored on outpatient basis and no pneumothorax recovered on the most recent chest x-ray. The patient currently has no significant sputum production. No chest pain. No falls. No seizure activity and the patient has been placed on 3 L about 2 by nasal cannula with a pulse is 98%. The rest of the blood work showed a white cell count 19.7 with hemoglobin 15.1 and a platelet count of 346, normal coagulation profile, creatinine of 1.33 with a sodium level of 132, and the lactic acid level is down to 1.4. Bilirubin is at 3.1 with an AST of 527 and ALT of 74 and an alkaline phosphatase of 343. Note that a CAT scan of the abdomen was done and it was reported that the gallbladder was unremarkable and the CAT scan of the abdomen and there was no acute intra-abdominal pathology. Fever and sepsis currently under workup. On 09/05/2021 patient seen in follow-up on medical surgical floor. He sitting up in the recliner, doesn't appear to be in any acute distress, he is alert and oriented 3, answering questions appropriate, denies any worsening dyspnea or cough, no component of chest discomfort, he is on 2 L of oxygen satting 97%, afebrile. Remains on Zosyn for possibility of pneumonia. Blood cultures have been sent, showing no growth at the 24-hour shannan. His labs have been reviewed, his white blood cell count is improved and is down to 11.35, hemoglobin is 10.9, electrolytes and renal profile are unremarkable, his LFTs are improving on today's labs. Patient states he only drinks occasionally, denies any chronic or heavy alcohol use. His amylase and lipase were within normal limits, his serum procalcitonin level was elevated at 0.97, urinalysis showed white blood cells in clumps, small amount of leuks, trace protein, no clear evidence of urinary tract infection. Influenza A and B, COVID-19, were negative. Hepatitis panel was negative. Objective - Vital Signs Vital signs: Vital Signs Temp 98.0 F 09/05/21 08:07 Pulse 57 L 09/05/21 08:07 Resp 16 09/05/21 08:07 BP 117/64 09/05/21 08:07 Pulse Ox 97 09/05/21 08:07 FiO2 Intake & Output 09/04/21 09/05/21 09/05/21 18:59 06:59 18:59 Weight 131.088 kg Other: Voiding Method Toilet Toilet Toilet # Voids 3 2 # Bowel Movements 1 - Exam GENERAL EXAM: Alert, pleasant, 86-year-old white male, liters of oxygen pulse ox is 97% comfortable in no apparent distress. HEAD: Normocephalic/atraumatic. EYES: Normal reaction of pupils, equal size. Conjunctiva pink, sclera white. NOSE: Clear with pink turbinates. THROAT: No erythema or exudates. NECK: No masses, no JVD, no thyroid enlargement, no adenopathy. CHEST: No chest wall deformity. Symmetrical expansion. LUNGS: Equal air entry with no crackles, wheeze, rhonchi or dullness. CVS: Regular rate and rhythm, normal S1 and S2, no gallops, no murmurs, no rubs ABDOMEN: Soft, nontender. No hepatosplenomegaly, normal bowel sounds, no guarding or rigidity. EXTREMITIES: No clubbing, no edema, no cyanosis, 2+ pulses and upper and lower extremities. MUSCULOSKELETAL: Muscle strength and tone normal. SPINE: No scoliosis or deformity SKIN: No rashes CENTRAL NERVOUS SYSTEM: Alert and oriented -3. No focal deficits, tone is normal in all 4 extremities. PSYCHIATRIC: Alert and oriented -3. Appropriate affect. Intact judgment and insight. - Labs CBC & Chem 7: 09/05/21 05:57 09/05/21 05:57 Labs: Abnormal Lab Results - Last 24 Hours (Table) 09/04/21 09/04/21 09/04/21 Range/Units 02:15 18:05 18:05 WBC (4.50-10.00) X 10*3/uL RBC (4.40-5.60) X 10*6/uL Hgb (13.0-17.0) g/dL Hct (39.6-50.0) % MCHC (32.0-37.0) g/dL RDW (11.5-14.5) % Immature Gran # (0.00-0.04) X 10*3/uL Neutrophils # (1.80-7.70) X 10*3/uL Monocytes # (0.20-1.00) X 10*3/uL Eosinophils # (0.04-0.35) X 10*3/uL ESR 59 H (0-15) mm/hr Est GFR (CKD-EPI)NonAf (60.0-200.0) Iron 25 L (65-175) ug/dL % Saturation 10.34 L (15.00-50.00) Transferrin 170.0 L (204.0-354.0) mg/dL Ferritin 830.0 H (22.0-322.0) ng/mL Total Bilirubin (0.30-1.20) mg/dL AST (14-35) U/L ALT (10-49) U/L Alkaline Phosphatase (41-126) U/L Total Protein (6.2-8.2) g/dL Albumin (3.8-4.9) g/dL Albumin/Globulin Ratio (1.60-3.17) g/dL Vitamin B12 >2000.0 H (200.0-944.0) pg/mL Procalcitonin 0.97 H (0.02-0.09) ng/mL 09/04/21 09/05/21 09/05/21 Range/Units 18:05 05:57 05:57 WBC 11.35 H (4.50-10.00) X 10*3/uL RBC 3.75 L (4.40-5.60) X 10*6/uL Hgb 10.9 L (13.0-17.0) g/dL Hct 34.2 L (39.6-50.0) % MCHC 31.9 L (32.0-37.0) g/dL RDW 16.5 H (11.5-14.5) % Immature Gran # 0.05 H (0.00-0.04) X 10*3/uL Neutrophils # 8.49 H (1.80-7.70) X 10*3/uL Monocytes # 1.12 H (0.20-1.00) X 10*3/uL Eosinophils # 0.46 H (0.04-0.35) X 10*3/uL ESR (0-15) mm/hr Est GFR (CKD-EPI)NonAf 53.1 L (60.0-200.0) Iron 25 L (65-175) ug/dL % Saturation (15.00-50.00) Transferrin (204.0-354.0) mg/dL Ferritin (22.0-322.0) ng/mL Total Bilirubin 2.00 H (0.30-1.20) mg/dL AST 175 H (14-35) U/L ALT 214 H (10-49) U/L Alkaline Phosphatase 280 H (41-126) U/L Total Protein 5.9 L (6.2-8.2) g/dL Albumin 3.1 L (3.8-4.9) g/dL Albumin/Globulin Ratio 1.10 L (1.60-3.17) g/dL Vitamin B12 (200.0-944.0) pg/mL Procalcitonin (0.02-0.09) ng/mL Microbiology - Last 24 Hours (Table) 09/04/21 02:20 Blood Culture - Preliminary Blood No Growth after 24 hours 09/04/21 02:15 Blood Culture - Preliminary Blood No Growth after 24 hours Assessment and Plan Plan: Assessment: Acute febrile illness with leukocytosis and mild lactic acidosis, currently under investigation. The patient is being worked up for underlying sepsis. Exact source is not clear. Acute leukocytosis Squamous cell lung cancer. The patient has a large left upper lobe mass with some mediastinal lymphadenopathy. Bronchoscopy and EBUS yielded a squamous cell carcinoma and the transbronchial biopsies from the left upper lobe was positive. EBUS samplings of the lymph nodes were negative for malignancy. This is a T4 lesion, invading the mediastinum. Please refer to the PET scan. Altered mentation, currently under investigation, possibly related to underlying infection COPD Diabetes mellitus Hypertension Iatrogenic pneumothorax post bronchoscopy, expected outcome of procedure, recovered on subsequent chest x-rays Peripheral neuropathy History of falls Abnormal LFTs, rule out underlying cholecystitis or cholelithiasis Acute kidney injury, improving Elevated liver enzymes, improving. Gallbladder ultrasound showed no evidence of acute cholecystitis, hepatitis panel is negative Plan: Continue current antibiotics Leukocytosis is improving on today's labs Vital signs are stable Cultures are negative thus far No Worsening dyspnea or cough LFTs are improving on today's labs, and so as the kidney function We'll continue to follow his clinical course I have personally seen and examined the patient, performed the documentation and the assessment and plan as written. Number of minutes spent on the visit: [10] Time with Patient: Less than 30
[2021-09-05 14:02] VITALS: BMI 40.3
--- NOTE | 2021-09-05 16:53 | P.PN ---
Subjective Progress Note Date: 09/05/21 Principal diagnosis: Squamous cell lung cancer, new diagnosis In f/u today pt is hungry, looking forward to eating, he denies any SOB, progressive cough, pain, N,V. Objective - Vital Signs Vital signs: Vital Signs Temp 98.0 F 09/05/21 08:07 Pulse 57 L 09/05/21 08:07 Resp 16 09/05/21 08:07 BP 117/64 09/05/21 08:07 Pulse Ox 97 09/05/21 08:07 FiO2 Intake & Output 09/04/21 09/05/21 09/05/21 18:59 06:59 18:59 Weight 131.088 kg 131.088 kg Other: Voiding Method Toilet Toilet Toilet # Voids 3 2 # Bowel Movements 1 - Constitutional General appearance: Present: average body habitus, cooperative, no acute distress - EENT Eyes: Present: anicteric sclerae, EOMI ENT: Present: hard of hearing, normal oropharynx - Respiratory Details: resp even and unlabored at rest - Cardiovascular Details: radial pulse regular, 2+ - Neurologic Neurologic: Present: CNII-XII intact (grossly) - Musculoskeletal Musculoskeletal: Present: generalized weakness, strength equal bilaterally - Psychiatric Psychiatric: Present: A&O x's 3, appropriate affect, intact judgment & insight - Labs CBC & Chem 7: 09/05/21 05:57 09/05/21 05:57 Labs: Abnormal Lab Results - Last 24 Hours (Table) 09/04/21 09/04/21 09/04/21 Range/Units 02:15 18:05 18:05 WBC (4.50-10.00) X 10*3/uL RBC (4.40-5.60) X 10*6/uL Hgb (13.0-17.0) g/dL Hct (39.6-50.0) % MCHC (32.0-37.0) g/dL RDW (11.5-14.5) % Immature Gran # (0.00-0.04) X 10*3/uL Neutrophils # (1.80-7.70) X 10*3/uL Monocytes # (0.20-1.00) X 10*3/uL Eosinophils # (0.04-0.35) X 10*3/uL ESR 59 H (0-15) mm/hr Est GFR (CKD-EPI)NonAf (60.0-200.0) Iron 25 L (65-175) ug/dL % Saturation 10.34 L (15.00-50.00) Transferrin 170.0 L (204.0-354.0) mg/dL Ferritin 830.0 H (22.0-322.0) ng/mL Total Bilirubin (0.30-1.20) mg/dL AST (14-35) U/L ALT (10-49) U/L Alkaline Phosphatase (41-126) U/L Total Protein (6.2-8.2) g/dL Albumin (3.8-4.9) g/dL Albumin/Globulin Ratio (1.60-3.17) g/dL Vitamin B12 >2000.0 H (200.0-944.0) pg/mL Procalcitonin 0.97 H (0.02-0.09) ng/mL 09/04/21 09/05/21 09/05/21 Range/Units 18:05 05:57 05:57 WBC 11.35 H (4.50-10.00) X 10*3/uL RBC 3.75 L (4.40-5.60) X 10*6/uL Hgb 10.9 L (13.0-17.0) g/dL Hct 34.2 L (39.6-50.0) % MCHC 31.9 L (32.0-37.0) g/dL RDW 16.5 H (11.5-14.5) % Immature Gran # 0.05 H (0.00-0.04) X 10*3/uL Neutrophils # 8.49 H (1.80-7.70) X 10*3/uL Monocytes # 1.12 H (0.20-1.00) X 10*3/uL Eosinophils # 0.46 H (0.04-0.35) X 10*3/uL ESR (0-15) mm/hr Est GFR (CKD-EPI)NonAf 53.1 L (60.0-200.0) Iron 25 L (65-175) ug/dL % Saturation (15.00-50.00) Transferrin (204.0-354.0) mg/dL Ferritin (22.0-322.0) ng/mL Total Bilirubin 2.00 H (0.30-1.20) mg/dL AST 175 H (14-35) U/L ALT 214 H (10-49) U/L Alkaline Phosphatase 280 H (41-126) U/L Total Protein 5.9 L (6.2-8.2) g/dL Albumin 3.1 L (3.8-4.9) g/dL Albumin/Globulin Ratio 1.10 L (1.60-3.17) g/dL Vitamin B12 (200.0-944.0) pg/mL Procalcitonin (0.02-0.09) ng/mL Microbiology - Last 24 Hours (Table) 09/04/21 02:20 Blood Culture - Preliminary Blood No Growth after 24 hours 09/04/21 02:15 Blood Culture - Preliminary Blood No Growth after 24 hours - Imaging and Cardiology CT scan - abdomen: report reviewed CT Scan - head: report reviewed CT scan - pelvis: report reviewed Assessment and Plan (1) Squamous cell lung cancer Current Visit: Yes Status: Acute Priority: High Code(s): C34.90 - MALIGNANT NEOPLASM OF UNSP PART OF UNSP BRONCHUS OR LUNG SNOMED Code(s): 792942993 Plan: Summarized pt hospital course and plans for f/u. Called and spoke with pt son and updated him on the same. Appears to be limited disease. 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 Plan for f/u with Oncologist to discuss treatment options, prognosis with and without treatment. Biomarker testing requested so that will be reviewed to see if targeted agents are a treatment option. Will also discussed Pt and family goals for any treatment and impact of treatment on quantity and quality of life. All was reviewed with pt and family at bedside. Called and spoke to son on p genevieve. All questions answered to the best of my ability Time with Patient: Greater than 30
[2021-09-05] MEDS: SODIUM CHLORIDE 0.9% 1,000 ML IV SCH ×3 (18:53→23:11)
[2021-09-05] MEDS: TAMSULOSIN 0.4 MG CAP.ER.24H PO SCH (20:47)
[2021-09-05] MEDS: ASPIRIN 81 MG PO SCH (20:48)
--- NOTE | 2021-09-05 23:13 | P.CONS ---
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 She presents to the hospital secondary to confusion and fever. The patient's oncologic history began in July 2021. The patient presents to the ER on July 30 after having a fall at home. The patient was taking Eliquis and had imaging of the CT brain and C-spine. This incidentally revealed a left upper lung mass. A CT scan of the chest without contrast on July 30 showed a 6 cm masslike infiltrate as well as borderline enlargement in mediastinal adenopathy. The patient subsequently was referred to pulmonology, and underwent a PET/CT on August 19, 2021. This revealed a 5.8 x 6 cm lobulated mass in the left upper lung with an SUV of 10.5. There was a prevascular lymph node measuring 2.1 cm with an SUV of 4.5. There was no clear evidence of distant metastatic disease. The patient was taken for bronchoscopy on August 25. This did reveal some extrinsic compression involving the apical left upper lung with endobronchial irregularities. Biopsy consistent with squamous cell carcinoma. The patient was admitted to the ER on September 04 secondary to having confusion, fevers and increased tremulousness according to his family. Initial workup did reveal elevated LFTs. A CT scan of the head was unremarkable, as well as the abdomen and pelvis. Subsequent gallbladder ultrasound also was largely u nremarkable. The patient was examined at the bedside on the morning of September 05. At this time, he reports he is feeling better overall. He is having no pain at this time. He reports chronic dyspnea on exertion, and denies difficulty with cough, chest pain or hemoptysis. Review of Systems Constitutional: Reports fever Eyes: denies blurred vision Ears: bilateral: decreased hearing Ears, nose, mouth and throat: Denies dysphagia Cardiovascular: Reports dyspnea on exertion, Denies chest pain Respiratory: Denies cough, Denies hemoptysis, Denies home oxygen Gastrointestinal: Reports constipation Genitourinary: Denies urinary retention Integumentary: Denies rash Past Medical History Past Medical History: Cancer, Heart Failure, COPD, Diabetes Mellitus, Hearing Disorder / Deafness, Hypertension, Osteoarthritis (OA), Pneumonia, Prostate Disorder Additional Past Medical History / Comment(s): skin cancer, lung cancer,falls, neuropathy, pre diabetic History of Any Multi-Drug Resistant Organisms: None Reported Past Surgical History: Appendectomy, Hernia Repair, Joint Replacement, Orthopedic Surgery, Pacemaker Additional Past Surgical History / Comment(s): skin cancer removed from shoulder, left hip replacement, tito cataracts, ring placed in urethra Past Anesthesia/Blood Transfusion Reactions: Previous Problems w/ Anesthesia, Motion Sickness Additional Past Anesthesia/Blood Transfusion Reaction / Comm: spinal headache with spinal anesthesia Type of Cardiac Device: Permanent Pacemaker Device Placement Date:: unknown Past Psychological History: No Psychological Hx Reported Smoking Status: Former smoker Past Alcohol Use History: None Reported Additional Past Alcohol Use History / Comment(s): quit smoking 5 yrs ago, started smoking age 19 Past Drug Use History: None Reported - Past Family History Mother Family Medical History: Diabetes Mellitus Sister(s) Family Medical History: Cancer Additional Family Medical History / Comment(s): Bone CA Brother(s) Additional Family Medical History / Comment(s): Heart issues. Ca of the throat Son(s) Family Medical History: Cancer Medications and Allergies Home Medications Medication Instructions Recorded Confirmed Type Aspirin 81 mg PO HS 06/29/13 09/04/21 History Vitamin E (Dl,Tocopheryl Acet) 400 unit PO DAILY 06/29/13 09/04/21 History [Vitamin E (400 Iu = 180 mg)] Vits A,C,E/Lutein/Minerals 1 tab PO DAILY 04/09/15 09/04/21 History [Ocuvite with Lutein Tablet] Tamsulosin HCl [Flomax] 0.8 mg PO HS 12/19/19 09/04/21 History traMADol HCL [Ultram] 50 mg PO TID PRN 12/19/19 09/04/21 History Furosemide [Lasix] 40 mg PO DAILY #90 tablet 12/22/19 09/04/21 Rx Apixaban [Eliquis] 2.5 mg PO BID 07/30/21 09/04/21 History Cholecalciferol [Vitamin D3 (10 10 mcg PO DAILY 07/30/21 09/04/21 History Mcg = 400 Iu)] DULoxetine HCL [Cymbalta] 60 mg PO DAILY 07/30/21 09/04/21 History Docusate [Colace] 100 mg PO DAILY 07/30/21 09/04/21 History Finasteride [Proscar] 5 mg PO DAILY 07/30/21 09/04/21 History Vitamin B 300mg 300 mg PO DAILY 07/30/21 09/04/21 History Allergies Allergy/AdvReac Type Severity Reaction Status Date / Time No Known Allergies Allergy Verified 09/04/21 12:10 Physical Exam Vitals: Vital Signs Temp Pulse Resp BP Pulse Ox 09/05/21 19:25 97.9 F 83 16 100/59 98 09/05/21 14:00 97.4 F L 82 18 101/64 98 09/05/21 08:07 98.0 F 57 L 16 117/64 97 09/05/21 08:00 57 L 16 09/05/21 04:17 97.7 F 87 16 107/63 97 09/05/21 02:00 98.3 F 76 20 116/57 97 Intake and Output 09/05/21 09/05/21 09/05/21 06:59 14:59 22:59 Intake Total 1300 Balance 1300 Intake: Intake, IV Titration 1300 Amount Piperacillin-Tazobactam 3 100 .375 gm In Sodium Chloride 0.9% 100 ml @ 25 mls/hr IVPB Q8H [facility] Rx#: [id number] Sodium Chloride 0.9% 1, 1200 000 ml @ 130 mls/hr IV . Q7H42M [facility] Rx#:[id number] Other: Voiding Method Toilet Toilet # Voids 2 1 Weight 131.088 kg - Constitutional General appearance: no acute distress - EENT Eyes: EOMI, PERRLA ENT: hard of hearing - Neck Neck: no lymphadenopathy - Respiratory Respiratory: bilateral: CTA - Cardiovascular Rhythm: regular - Integumentary Integumentary: no pale - Neurologic Neurologic: CNII-XII intact - Musculoskeletal Musculoskeletal: strength equal bilaterally - Psychiatric Psychiatric: A&O x's 3, appropriate affect Results CBC & Chem 7: 09/05/21 05:57 09/05/21 05:57 Labs: Abnormal Lab Results - Last 24 Hours (Table) 09/04/21 09/05/21 09/05/21 Range/Units 18:05 05:57 05:57 WBC 11.35 H (4.50-10.00) X 10*3/uL RBC 3.75 L (4.40-5.60) X 10*6/uL Hgb 10.9 L (13.0-17.0) g/dL Hct 34.2 L (39.6-50.0) % MCHC 31.9 L (32.0-37.0) g/dL RDW 16.5 H (11.5-14.5) % Immature Gran # 0.05 H (0.00-0.04) X 10*3/uL Neutrophils # 8.49 H (1.80-7.70) X 10*3/uL Monocytes # 1.12 H (0.20-1.00) X 10*3/uL Eosinophils # 0.46 H (0.04-0.35) X 10*3/uL Est GFR (CKD-EPI)NonAf 53.1 L (60.0-200.0) Total Bilirubin 2.00 H (0.30-1.20) mg/dL AST 175 H (14-35) U/L ALT 214 H (10-49) U/L Alkaline Phosphatase 280 H (41-126) U/L Total Protein 5.9 L (6.2-8.2) g/dL Albumin 3.1 L (3.8-4.9) g/dL Albumin/Globulin Ratio 1.10 L (1.60-3.17) g/dL Vitamin B12 >2000.0 H (200.0-944.0) pg/mL Microbiology - Last 24 Hours (Table) 09/04/21 02:20 Blood Culture - Preliminary Blood No Growth after 24 hours 09/04/21 02:15 Blood Culture - Preliminary Blood No Growth after [address] scan - chest: report reviewed, image reviewed CT Scan - head: report reviewed, image reviewed Assessment and Plan Assessment: The patient is an 86-year-old male recently diagnosed with a clinical stage IIIB (cT4, cN2, 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 She presents to the hospital secondary to confusion and fever. Plan: 1. Stage III Non-small cell lung cancer: I discussed with the patient that typically treatment would involve concurrent chemotherapy and radiation. Considering the patient's advanced age, he may have some difficulty tolerating this regimen. He is fairly healthy for his age however, and currently lives independently. I've recommended the patient return to clinic as an outpatient in 1 week for further discussion with family. Tumor molecular testing has been ordered. 2. Fever: Currently on antibiotics, secondary to some underlying concern regarding pneumonia. The patient clinically appears to be doing well this mo rning. LFTs are improving. Time with Patient: Greater than 30
[2021-09-06] MEDS: PIPERACILLIN-TAZOBACTAM 3.375 GM in SODIUM CHLORIDE 0.9% 100 ML IVPB SCH ×3 (03:07→19:24)
[2021-09-06] MEDS: FAMOTIDINE 20 MG/2 ML VIAL IV SCH (08:07)
--- NOTE | 2021-09-06 08:38 | P.PN ---
Subjective Principal diagnosis: Non-small cell lung cancer This is a continue pressure 78-year-old white male who was essentially found to have non-small cell cancer. The patient is resting comfortably this morning. Appreciate pulmonology and oncology consult. The patient's resting comfortably no voiding difficulties. Liver enzymes are improving. He is oxygen dependent at this time however. Objective - Vital Signs Vital signs: Vital Signs Temp 98.2 F 09/06/21 08:00 Pulse 65 09/06/21 08:00 Resp 19 09/06/21 08:00 BP 90/56 09/06/21 08:00 Pulse Ox 98 09/06/21 08:00 FiO2 Intake & Output 09/05/21 09/06/21 09/06/21 18:59 06:59 18:59 Intake Total 1300 Balance 1300 Weight 131.088 kg Intake: Intake, IV Titration 1300 Amount Piperacillin-Tazobactam 3 100 .375 gm In Sodium Chloride 0.9% 100 ml @ 25 mls/hr IVPB Q8H [facility] Rx#: [id number] Sodium Chloride 0.9% 1, 1200 000 ml @ 130 mls/hr IV . Q7H42M [facility] Rx#:[id number] Other: Voiding Method Toilet Toilet # Voids 5 - Constitutional General appearance: Present: average body habitus, cooperative. Absent: mild distress - Neck Neck: Absent: lymphadenopathy - Respiratory Respiratory: bilateral: diminished - Cardiovascular Rhythm: regular Heart sounds: normal: S1, S2 Abnormal Heart Sounds: Absent: S3 Gallop - Gastrointestinal General gastrointestinal: Present: soft. Absent: tenderness - Integumentary Integumentary: Absent: cellulitis - Labs CBC & Chem 7: 09/05/21 05:57 09/05/21 05:57 Labs: Abnormal Lab Results - Last 24 Hours (Table) 09/05/21 09/05/21 Range/Units 05:57 05:57 WBC 11.35 H (4.50-10.00) X 10*3/uL RBC 3.75 L (4.40-5.60) X 10*6/uL Hgb 10.9 L (13.0-17.0) g/dL Hct 34.2 L (39.6-50.0) % MCHC 31.9 L (32.0-37.0) g/dL RDW 16.5 H (11.5-14.5) % Immature Gran # 0.05 H (0.00-0.04) X 10*3/uL Neutrophils # 8.49 H (1.80-7.70) X 10*3/uL Monocytes # 1.12 H (0.20-1.00) X 10*3/uL Eosinophils # 0.46 H (0.04-0.35) X 10*3/uL Est GFR (CKD-EPI)NonAf 53.1 L (60.0-200.0) Total Bilirubin 2.00 H (0.30-1.20) mg/dL AST 175 H (14-35) U/L ALT 214 H (10-49) U/L Alkaline Phosphatase 280 H (41-126) U/L Total Protein 5.9 L (6.2-8.2) g/dL Albumin 3.1 L (3.8-4.9) g/dL Albumin/Globulin Ratio 1.10 L (1.60-3.17) g/dL Microbiology - Last 24 Hours (Table) 09/04/21 02:15 Blood Culture - Preliminary Blood No Growth after 48 hours 09/04/21 02:20 Blood Culture - Preliminary Blood No Growth after 48 hours Assessment and Plan (1) Constipation Current Visit: Yes Status: Acute Code(s): K59.00 - CONSTIPATION, UNSPECIFIED SNOMED Code(s): 07740708 (2) Liver enzyme elevation Current Visit: Yes Status: Acute Code(s): R74.8 - ABNORMAL LEVELS OF OTHER SERUM ENZYMES SNOMED Code(s): 060638726 (3) Non-small cell cancer of left lung Current Visit: Yes Status: Acute Code(s): C34.92 - MALIGNANT NEOPLASM OF UNSP PART OF LEFT BRONCHUS OR LUNG SNOMED Code(s): 728810251 (4) Squamous cell lung cancer Current Visit: Yes Status: Acute Priority: High Code(s): C34.90 - MAL IGNANT NEOPLASM OF UNSP PART OF UNSP BRONCHUS OR LUNG SNOMED Code(s): 254 [id number] (5) Weakness Current Visit: Yes Status: Acute Code(s): R53.1 - WEAKNESS SNOMED Code(s): 78748215 Plan: Continue supportive care. I did discuss with him that he needs to understand what the possible treatment options are. The patient is agreeable to this. Appreciate multiple consultants input. Anticipate discharge in a.m.
[2021-09-06] MEDS: APIXABAN 2.5 MG TABLET PO SCH ×2 (09:37→20:24)
[2021-09-06] MEDS: DULoxetine HCL 60 MG CAPSULE.DR PO SCH (09:38)
[2021-09-06] MEDS: FINASTERIDE 5 MG TAB PO SCH (09:38)
[2021-09-06] MEDS: CHOLECALCIFEROL 10 MCG (400 IU) TABLET PO SCH (09:39)
[2021-09-06] MEDS: FUROSEMIDE 40 MG TAB PO SCH (09:39)
[2021-09-06] MEDS: DOCUSATE 100 MG CAP PO SCH (09:45)
[2021-09-06] MEDS: SENNOSIDES-DOCUSATE SODIUM 1 EACH TAB PO SCH ×2 (09:45→20:24)
[2021-09-06] MEDS: SODIUM CHLORIDE 0.9% 1,000 ML IV SCH ×2 (09:54→14:46)
--- NOTE | 2021-09-06 12:46 | P.PN ---
Subjective Progress Note Date: 09/06/21 Principal diagnosis: Lung mass 86-year-old male patient who is known to me. The patient came in to the hospital because of fever, lethargy over the past 48 hours and generalized weakness and some body tremors and at times he was found to be confused by family. In the emergency, he was suspected to be septic as the patient had a fever and the same time he had a temperature 100.2, mild leukocytosis with white cell count 19.7, and mild lactic acidosis with a lactic acid level of 2.3. UA showed 8 WBCs. COVID 19 testing was negative. Chest showed COPD and the left lung opacity which is a component case of non-small cell lung cancer. Note that the patient is known to me. I working up this patient for a large mass in his left upper lobe that showed intense metabolic activity. Note that the patient presented to me with a large 6 cm left upper lobe mass with some mediastinal lymphadenopathy largest being around 1.5 cm in the pretracheal area and another lesion or now in the inferior mediastinal area. He did have some background COPD. I have elected discussion with this patient's family and son and despite his age and comorbidities, the patient decided to do the biopsy for tissue diagnosis. I performed a bronchoscopy and EBUS of the mediastinal lymph nodes. The mediastinal lymph nodes yielded no evidence of malignancy. 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 The patient had a 15% pneumothorax following the procedure which was monitored on outpatient basis and no pneumothorax recovered on the most recent chest x-ray. The patient currently has no significant sputum production. No chest pain. No falls. No seizure activity and the patient has been placed on 3 L about 2 by nasal cannula with a pulse is 98%. The rest of the blood work showed a white cell count 19.7 with hemoglobin 15.1 and a platelet count of 346, normal coagulation profile, creatinine of 1.33 with a sodium level of 132, and the lactic acid level is down to 1.4. Bilirubin is at 3.1 with an AST of 527 and ALT of 74 and an alkaline phosphatase of 343. Note that a CAT scan of the abdomen was done and it was reported that the gallbladder was unremarkable and the CAT scan of the abdomen and there was no acute intra-abdominal pathology. Fever and sepsis currently under workup. On 09/05/2021 patient seen in follow-up on medical surgical floor. He sitting up in the recliner, doesn't appear to be in any acute distress, he is alert and oriented 3, answering questions appropriate, denies any worsening dyspnea or cough, no component of chest discomfort, he is on 2 L of oxygen satting 97%, afebrile. Remains on Zosyn for possibility of pneumonia. Blood cultures have been sent, showing no growth at the 24-hour shannan. His labs have been reviewed, his white blood cell count is improved and is down to 11.35, hemoglobin is 10.9, electrolytes and renal profile are unremarkable, his LFTs are improving on today's labs. Patient states he only drinks occasionally, denies any chronic or heavy alcohol use. His amylase and lipase were within normal limits, his serum procalcitonin level was elevated at 0.97, urinalysis showed white blood cells in clumps, small amount of leuks, trace protein, no clear evidence of urinary tract infection. Influenza A and B, COVID-19, were negative. Hepatitis panel was negative. On 09/06/2021 patient seen in follow-up on medical surgical floor. He states he is feeling better, on 2 L of oxygen. His pulse ox is 98%, he is resting comfortably in the chair, has had no fever or chills, vital signs have been stable. No worsening dyspnea, no complaints of chest discomfort or cough. B lood cultures have shown no growth. Patient remains on Zosyn for antibiotic coverage. History is that showed improving leukocytosis and white blood cell count was down to 11.35, electrolytes and renal profile were also improving. His LFTs were also noted to be improving. His pro calcitonin level was 0.97 on admission. Clinically patient is improving. He would like to go home. Patient is having no pain. Objective - Vital Signs Vital signs: Vital Signs Temp 98.2 F 09/06/21 08:00 Pulse 65 09/06/21 08:00 Resp 19 09/06/21 08:00 BP 90/56 09/06/21 08:00 Pulse Ox 98 09/06/21 08:00 FiO2 Intake & Output 09/05/21 09/06/21 09/06/21 18:59 06:59 18:59 Intake Total 1300 Balance 1300 Weight 131.088 kg Intake: Intake, IV Titration 1300 Amount Piperacillin-Tazobactam 3 100 .375 gm In Sodium Chloride 0.9% 100 ml @ 25 mls/hr IVPB Q8H [facility] Rx#: [id number] Sodium Chloride 0.9% 1, 1200 000 ml @ 130 mls/hr IV . Q7H42M [facility] Rx#:[id number] Other: Voiding Method Toilet Toilet Toilet # Voids 5 - Exam GENERAL EXAM: Alert, pleasant, 86-year-old white male, liters of oxygen pulse ox is 97% comfortable in no apparent distress. HEAD: Normocephalic/atraumatic. EYES: Normal reaction of pupils, equal size. Conjunctiva pink, sclera white. NOSE: Clear with pink turbinates. THROAT: No erythema or exudates. NECK: No masses, no JVD, no thyroid enlargement, no adenopathy. CHEST: No chest wall deformity. Symmetrical expansion. LUNGS: Equal air entry with no crackles, wheeze, rhonchi or dullness. CVS: Regular rate and rhythm, normal S1 and S2, no gallops, no murmurs, no rubs ABDOMEN: Soft, nontender. No hepatosplenomegaly, normal bowel sounds, no guarding or rigidity. EXTREMITIES: No clubbing, no edema, no cyanosis, 2+ pulses and upper and lower extremities. MUSCULOSKELETAL: Muscle strength and tone normal. SPINE: No scoliosis or deformity SKIN: No rashes CENTRAL NERVOUS SYSTEM: Alert and oriented -3. No focal deficits, tone is normal in all 4 extremities. PSYCHIATRIC: Alert and oriented -3. Appropriate affect. Intact judgment and insight. - Labs CBC & Chem 7: 09/05/21 05:57 09/05/21 05:57 Labs: Microbiology - Last 24 Hours (Table) 09/04/21 02:15 Blood Culture - Preliminary Blood No Growth after 48 hours 09/04/21 02:20 Blood Culture - Preliminary Blood No Growth after 48 hours Assessment and Plan Plan: Assessment: Acute febrile illness with leukocytosis and mild lactic acidosis, currently under investigation. The patient is being worked up for underlying sepsis. Exact source is not clear. Acute leukocytosis Squamous cell lung cancer. The patient has a large left upper lobe mass with some mediastinal lymphadenopathy. Bronchoscopy and EBUS yielded a squamous cell carcinoma and the transbronchial biopsies from the left upper lobe was positive. EBUS samplings of the lymph nodes were negative for malignancy. This is a T4 lesion, invading the mediastinum. Please refer to the PET scan. Altered mentation, currently under investigation, possibly related to underlying infection COPD Diabetes mellitus Hypertension Iatrogenic pneumothorax post bronchoscopy, expected outcome of procedure, recovered on subsequent chest x-rays Peripheral neuropathy History of falls Abnormal LFTs, rule out underlying cholecystitis or cholelithiasis Acute kidney injury, improving Elevated liver enzymes, improving. Gallbladder ultrasound showed no evidence of acute cholecystitis, hepatitis panel is negative Plan: Clinical patient is improving, Vital signs have been stable His cultures have been negative No fever or chills Increase activity as tolerated Recommend discharge home today or in the next 24 hours Outpatient follow-up with Dr. Porter in 7-10 days I have personally seen and examined the patient, performed the documentation and the assessment and plan as written. Number of minutes spent on the visit: [10] Time with Patient: Less than 30
[2021-09-06 16:08] LABS: Methylmalonic Acid 0.15 umol/L (<0.40)
[2021-09-06] MEDS ORDERED: RX INFO: IV CONTRAST WAS GIVEN 1 EACH MISC MISCELLANE PRN (20:23)
[2021-09-06] MEDS: TAMSULOSIN 0.4 MG CAP.ER.24H PO SCH (20:24)
[2021-09-06] MEDS: ASPIRIN 81 MG PO SCH (20:24)
--- NOTE | 2021-09-06 20:32 | P.PN ---
Subjective Progress Note Date: 09/06/21 Principal diagnosis: Squamous cell lung cancer, new diagnosis In f/u today pt was sleeping adn aroused very easily, he feels pretty good in general, no c/o of SOB or pain. Objective - Vital Signs Vital signs: Vital Signs Temp 97.5 F L 09/06/21 18:44 Pulse 98 09/06/21 18:44 Resp 17 09/06/21 18:44 BP 100/58 09/06/21 18:44 Pulse Ox 98 09/06/21 18:44 FiO2 Intake & Output 09/06/21 09/06/21 09/07/21 06:59 18:59 06:59 Other: Voiding Method Toilet Toilet # Voids 5 4 - Constitutional General appearance: Present: average body habitus, cooperative, no acute distress - EENT Eyes: Present: anicteric sclerae, EOMI ENT: Present: hard of hearing - Respiratory Respiratory: bilateral: diminished - Cardiovascular Details: skin warm and dry to touch - Neurologic Neurologic: Present: CNII-XII intact - Musculoskeletal Musculoskeletal: Present: strength equal bilaterally - Psychiatric Psychiatric: Present: A&O x's 3, appropriate affect, intact judgment & insight - Labs CBC & Chem 7: 09/05/21 05:57 09/05/21 05:57 Labs: Microbiology - Last 24 Hours (Table) 09/04/21 02:15 Blood Culture - Preliminary Blood No Growth after 48 hours 09/04/21 02:20 Blood Culture - Preliminary Blood No Growth after 48 hours Assessment and Plan (1) Squamous cell lung cancer Current Visit: Yes Status: Acute Priority: High Code(s): C34.90 - MALIGNANT NEOPLASM OF UNSP PART OF UNSP BRONCHUS OR LUNG SNOMED Code(s): 915516454 Plan: CT imaging, appears to be limited disease. 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 Ordered today. F/U appt with Oncologist in chart. They will discuss treatment options, prognosis with and without treatment, benefits vs toxicities of treatment. Biomarker testing confirmed ordered, that will be reviewed to see if targeted agents are a treatment option. Will also discuss Pt and family goals for any treatment and impact of treatment on quantity and quality of life. LFTs improving with conservative mgmt. US no acute cholecystitis or hepatitis. Pt is ok from a Onc standpoint for discharge once cleared by Attending and Cons ulting Physicians Doctor attests: I performed a history and physical examination of this patient, developed impression and plan of care. Discussed with dictator. I agree with dictators note, documented as a scribe.
[2021-09-07] MEDS: SODIUM CHLORIDE 0.9% 1,000 ML IV SCH ×3 (00:17→16:35)
[2021-09-07] MEDS: PIPERACILLIN-TAZOBACTAM 3.375 GM in SODIUM CHLORIDE 0.9% 100 ML IVPB SCH ×3 (03:24→19:46)
--- NOTE | 2021-09-07 08:08 | CT ---
EXAMINATION TYPE: CT brain w con CT DLP: 1135.4 mGycm, Automated exposure control for dose reduction was used. DATE OF EXAM: 09/07/2021 7:48 AM COMPARISON: CT brain 09/04/2021. CLINICAL INDICATION:Male, 86 years old with history of Sq cell lung cancer diagnosis, initial staging ; [facility], Initial staging for Cancer TECHNIQUE: Axial CT images of the brain were obtained after the administration of 100 cc of ISO-view 370 IV contrast. One or more CT dose reduction strategies were utilized during this examination. Hunter nal and sagittal reformats were reviewed. FINDINGS: Extra-axial spaces: No abnormal extra-axial fluid collections. Ventricular system: Within normal limits Cerebral parenchyma: No acute intraparenchymal hemorrhage or mass effect. The boswell-white junction is well differentiated. No abnormal enhancement is seen after the administration of intravenous contras t. Cerebellum: Unremarkable. Mass effect: No evidence of midline shift. Intracranial vasculature: Atherosclerotic calcifications of the intracranial vessels. Soft tissues: Normal. Calvarium/osseous structures: No depressed skull fracture. Paranasal sinuses and mastoid air cells: Clear. Visualized orbits: Bilateral aphakia IMPRESSION: No acute intracranial process. No abnormal contrast enhancement to suggest metastasis.
[2021-09-07] MEDS: DULoxetine HCL 60 MG CAPSULE.DR PO SCH (09:23)
[2021-09-07] MEDS: FAMOTIDINE 20 MG TAB PO SCH (09:23)
[2021-09-07] MEDS: SENNOSIDES-DOCUSATE SODIUM 1 EACH TAB PO SCH ×2 (09:23→21:16)
[2021-09-07] MEDS: FUROSEMIDE 40 MG TAB PO SCH (09:23)
[2021-09-07] MEDS: FINASTERIDE 5 MG TAB PO SCH (09:23)
[2021-09-07] MEDS: APIXABAN 2.5 MG TABLET PO SCH ×2 (09:23→21:19)
[2021-09-07] MEDS: CHOLECALCIFEROL 10 MCG (400 IU) TABLET PO SCH (09:23)
[2021-09-07] MEDS: DOCUSATE 100 MG CAP PO SCH (09:23)
[2021-09-07 09:28] LABS: HCT 36.6 % (39.6-50.0); HGB 12.1 g/dL (13.0-17.0); MCH 29.3 pg (27.0-32.0); MCHC 33.1 g/dL (32.0-37.0); MCV 88.6 fL (80.0-97.0); Mean Platelet Volume 9.2 fL (9.5-12.2); NRBC Per 100 WBC 0 /100 WBCS (0.0-0.0); Platelet Count 337 X 10*3/uL (140-440); RBC 4.13 X 10*6/uL (4.40-5.60); RDW 16.4 % (11.5-14.5); WBC 12.39 X 10*3/uL (4.50-10.00)
[2021-09-07] MEDS: traMADol 50 MG TAB PO PRN ×2 (09:30→21:24)
[2021-09-07 09:51] LABS: African American GFR (CKD) 62.2 (60.0-200.0); Albumin 3.5 g/dL (3.8-4.9); Albumin/Globulin Ratio 1.13 (1.60-3.17); Anion Gap 10.8 mmol/L (10.00-18.00); BUN/Creat Ratio 17.83 Ratio (12.00-20.00); Blood Urea Nitrogen 21.4 mg/dL (9.0-27.0); Calcium 9.2 mg/dL (8.7-10.3); Carbon Dioxide 23.2 mmol/L (20.0-27.5); Globulin 3.1 g/dL (1.6-3.3); Non-African American GFR(CKD) 53.7 (60.0-200.0); Total Bilirubin 1.2 mg/dL (0.30-1.20); Total Protein 6.6 g/dL (6.2-8.2)
--- NOTE | 2021-09-07 10:37 | CDI ---
Documentation Clarification Form Date: 09/07/2021 10:20:54 AM From: Radha Lo RN CCDS Admit Date: 09/04/2021 05:18:00 AM Patient Name: Dallas Goss Visit Number: [id number] Discharge Date: ATTENTION: The Clinical Documentation Specialists (CDI) and [facility] Coding Staff appreciate your assistance in clarifying documentation. Please respond to the clarification below the line at the bottom and electronically sign. The CDI & [facility] Coding staff will review the response and follow-up if needed. Please note: Queries are made part of the Legal Health Record. If you have any questions, please contact the author of this message via ITS. Dr. Pietro Clinton He is oxygen dependent at this time however. 09/06, Medicine progress note. Based on this information and the findings below, is there an additional diagnosis that is clinically appropriate for this patient? History/Risk Factors: 86-year-old male presents to the ED with fever and lethargy, generalized weakness, body tremors and confusion. Medical History: Squamous cell lung carcinoma, COPD, DM and HTN. Tobacco use: Quit smoking 5 years ago, started smoking age 19. Clinical Indicators: VSS: 09/04 B/P 145/81; HR 89; Temperature 100.2 F Oral; RR 20; SpO2 97% 3L nasal cannula Lung/Breathing assessment: 09/04, H&P: Normal lung sounds bilaterally, decreased breath sounds (left upper). Treatment: Oxygen via nasal cannula. 09/04 01:58 3L SpO2 97% nasal cannula 09/04 14:00 2L SpO2 92% nasal cannula 09/06 20:00 3L SpO2 98% nasal cannula. Is there an additional diagnosis that is clinically appropriate for this patient? [ x ] Acute Hypoxic Respiratory Failure (pO2 <60 mm Hg or SpO2 <91% on room air) [ ] Respiratory failure ruled out [ ] Other Diagnosis, please specify [ ] Unable to determine (Template Last Revised: April 2020) MTDD
--- NOTE | 2021-09-07 10:38 | CDI ---
Documentation Clarification Form Date: 09/07/2021 09:52:13 AM From: Radha Lo RN CCDS Admit Date: 09/04/2021 05:18:00 AM Patient Name: Dallas Goss Visit Number: [id number] Discharge Date: ATTENTION: The Clinical Documentation Specialists (CDI) and [facility] Coding Staff appreciate your assistance in clarifying documentation. Please respond to the clarification below the line at the bottom and electronically sign. The CDI & [facility] Coding staff will review the response and follow-up if needed. Please note: Queries are made part of the Legal Health Record. If you have any questions, please contact the author of this message via ITS. Dr. Pietro Clinton Pneumonia is documented 09/05, Pulmonary Progress Note. Additional clarification regarding the type of pneumonia is requested. History/Risk Factors: 86-year-old male presents to the ED with fever and lethargy, generalized weakness, body tremors and confusion. Medical History: Squamous cell lung carcinoma, COPD, DM and HTN. Clinical Indicators: VSS: 09/04 B/P 145/81; HR 89; Temperature 100.2 F Oral; RR 20; SpO2 97% 3L nasal cannula WBC/Left shift: 09/04 Wbc 19.7; Neutrophils 17.9 CT ABD PLEV: 09/04 Some fibrotic changes in subsegmental atelectasis at the lung bases not changed compared to chest CT scan 08/25/2021. Lung/Breathing assessment 09/04, H&P: Normal lung sounds bilaterally, decreased breath sounds (left upper). 09/05, Pulmonary Progress Note: Remains on Zosyn for possibility of pneumonia. Treatment: Pulmonary consult. Antibiotics: 09/04 Ceftriaxone 1gm IVPB x 1; 09/04 Zosyn 3.375gm IVPB Q8H. O2: 09/04 3L nasal cannula 09/04 09/06 2L nasal cannula In your professional opinion, please clarify if these findings signify one of the following conditions: [ x ] Pneumonia [ ] Pneumonia ruled out [ ] Other bacteria (please specify) [ ] Other, please specify [ ] Unable to determine (Template Last Revised: April 2020) MTDD
--- NOTE | 2021-09-07 10:40 | CDI ---
Documentation Clarification Form Date: 09/07/2021 09:41:10 AM From: Radha Lo RN CCDS Admit Date: 09/04/2021 05:18:00 AM Patient Name: Dallas Goss Visit Number: [id number] Discharge Date: ATTENTION: The Clinical Documentation Specialists (CDI) and [facility] Coding Staff appreciate your assistance in clarifying documentation. Please respond to the clarification below the line at the bottom and electronically sign. The CDI & [facility] Coding staff will review the response and follow-up if needed. Please note: Queries are made part of the Legal Health Record. If you have any questions, please contact the author of this message via ITS. Dr. Pietro Clinton Your patient has the documented symptom of Altered Mental Status 09/04, H&P. Additional clarification regarding the etiology/cause of this symptom is requested. History/Risk Factors: 86-year-old male presents to the ED with fever and lethargy, generalized weakness, body tremors and confusion. Medical History: Squamous cell lung carcinoma, COPD, DM and HTN. Clinical Indicators: Labs: 09/04 Wbc 19.7; Lactic acid 2.3; Neutrophils 17.9. CT ABD PLEV: 09/04 Some fibrotic changes in subsegmental atelectasis at the lung bases not changed compared to chest CT scan 08/25/2021. CT Brain, 09/04: No acute process Pulmonary note, 09/05: Remains on Zosyn for possibility of pneumonia Pulmonary note, 09/05: Will likely discharge the patient home on oral antibiotics for another week and follow-on outpatient basis. Treatment: Pulmonary consult; 09/04 Ceftriaxone 1gm IVPB x 1; 09/04 Zosyn 3.375gm Q8H. Please clarify the etiology of the symptom of Altered Mental Status: [ x] Metabolic Encephalopathy due to Infectious process [ ] Other condition (please specify) [ ] Unable to determine (Template Last Revised: March 2020) MTDD
--- NOTE | 2021-09-07 10:41 | CDI ---
Documentation Clarification Form Date: 09/07/2021 09:22:00 AM From: Radha Lo RN CCDS Admit Date: 09/04/2021 05:18:00 AM Patient Name: Dallas Goss Visit Number: [id number] Discharge Date: ATTENTION: The Clinical Documentation Specialists (CDI) and [facility] Coding Staff appreciate your assistance in clarifying documentation. Please respond to the clarification below the line at the bottom and electronically sign. The CDI & [facility] Coding staff will review the response and follow-up if needed. Please note: Queries are made part of the Legal Health Record. If you have any questions, please contact the author of this message via ITS. Dr. Pietro Clinton The patient presented with the following clinical indicators. Additional clarification regarding the etiology/cause of the clinical indicators is requested. History/Risk Factors: 86-year-old male presents to the ED with fever and lethargy, generalized weakness, body tremors and confusion. Medical History: Squamous cell lung carcinoma, COPD, DM and HTN. Clinical Indicators: WBC: 09/04: 19.7 Lactic acid: 09/04: 2.3 Neutrophils: 09/04: 17.9 Blood cultures: 09/04 No growth after [address] ABD PLEV: 09/04 Some fibrotic changes in subsegmental atelectasis at the lung bases not changed compared to chest CT scan 08/25/2021. Vitals signs: 09/04: B/P 145/81; HR 89; Temp 100.2 F Oral; RR 20; SpO2 97% 3L 09/05, Pulmonary Consult: Acute afebrile illness with leukocytosis and mild lactic acid, currently under investigation. The patient is being worked up for underlying Sepsis. 09/05, Pulmonary Progress Note: Will likely discharge the patient home on oral antibiotics for another week and follow-on outpatient basis. Treatment: Pulmonary consult : See above Antibiotics: 09/04 Ceftriaxone 1gm IVPB x 1; 09/04 Zosyn 3.375gm IVPB Q8H. IV Fluids: 09/04 0.9ns 130cc/hr Q7H42M In your professional opinion, please clarify if these findings signify one of the following conditions: [ ] Sepsis POA [ ] Sepsis ruled out [ x] SIRS, without underlying infectious process [ ] Other, please specify [ ] Unable to determine SIRS Criteria: 2 or more of the following may indicate SIRS -Temperature < 96.8F (36C) or > 101.0F (38.3C) -Heart Rate > 90 bpm -Respiratory Rate > 20 breaths/min or PaCO2 < 32 mmHg -White Blood Cell Count > 12,000 or < 4,000 cells/mm3 or > 10% bands (Template Last Reviewed: March 2020) NANCYD
--- NOTE | 2021-09-07 13:31 | P.PN ---
Subjective Progress Note Date: 09/07/21 Principal diagnosis: Lung mass 86-year-old male patient who is known to me. The patient came in to the hospital because of fever, lethargy over the past 48 hours and generalized weakness and some body tremors and at times he was found to be confused by family. In the emergency, he was suspected to be septic as the patient had a fever and the same time he had a temperature 100.2, mild leukocytosis with white cell count 19.7, and mild lactic acidosis with a lactic acid level of 2.3. UA showed 8 WBCs. COVID 19 testing was negative. Chest showed COPD and the left lung opacity which is a component case of non-small cell lung cancer. Note that the patient is known to me. I working up this patient for a large mass in his left upper lobe that showed intense metabolic activity. Note that the patient presented to me with a large 6 cm left upper lobe mass with some mediastinal lymphadenopathy largest being around 1.5 cm in the pretracheal area and another lesion or now in the inferior mediastinal area. He did have some background COPD. I have elected discussion with this patient's family and son and despite his age and comorbidities, the patient decided to do the biopsy for tissue diagnosis. I performed a bronchoscopy and EBUS of the mediastinal lymph nodes. The mediastinal lymph nodes yielded no evidence of malignancy. 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 The patient had a 15% pneumothorax following the procedure which was monitored on outpatient basis and no pneumothorax recovered on the most recent chest x-ray. The patient currently has no significant sputum production. No chest pain. No falls. No seizure activity and the patient has been placed on 3 L about 2 by nasal cannula with a pulse is 98%. The rest of the blood work showed a white cell count 19.7 with hemoglobin 15.1 and a platelet count of 346, normal coagulation profile, creatinine of 1.33 with a sodium level of 132, and the lactic acid level is down to 1.4. Bilirubin is at 3.1 with an AST of 527 and ALT of 74 and an alkaline phosphatase of 343. Note that a CAT scan of the abdomen was done and it was reported that the gallbladder was unremarkable and the CAT scan of the abdomen and there was no acute intra-abdominal pathology. Fever and sepsis currently under workup. On 09/05/2021 patient seen in follow-up on medical surgical floor. He sitting up in the recliner, doesn't appear to be in any acute distress, he is alert and oriented 3, answering questions appropriate, denies any worsening dyspnea or cough, no component of chest discomfort, he is on 2 L of oxygen satting 97%, afebrile. Remains on Zosyn for possibility of pneumonia. Blood cultures have been sent, showing no growth at the 24-hour shannan. His labs have been reviewed, his white blood cell count is improved and is down to 11.35, hemoglobin is 10.9, electrolytes and renal profile are unremarkable, his LFTs are improving on today's labs. Patient states he only drinks occasionally, denies any chronic or heavy alcohol use. His amylase and lipase were within normal limits, his serum procalcitonin level was elevated at 0.97, urinalysis showed white blood cells in clumps, small amount of leuks, trace protein, no clear evidence of urinary tract infection. Influenza A and B, COVID-19, were negative. Hepatitis panel was negative. On 09/06/2021 patient seen in follow-up on medical surgical floor. He states he is feeling better, on 2 L of oxygen. His pulse ox is 98%, he is resting comfortably in the chair, has had no fever or chills, vital signs have been stable. No worsening dyspnea, no complaints of chest discomfort or cough. B lood cultures have shown no growth. Patient remains on Zosyn for antibiotic coverage. History is that showed improving leukocytosis and white blood cell count was down to 11.35, electrolytes and renal profile were also improving. His LFTs were also noted to be improving. His pro calcitonin level was 0.97 on admission. Clinically patient is improving. He would like to go home. Patient is having no pain. On 09/07/2021 patient seen in follow-up on medical surgical floor. Patient is awake and alert, in no acute distress, breathing comfortably, room air pulse ox is 98%. Brain CT was obtained per medical oncology showing no acute intracranial process, and no abnormal contrast enhancement to suggest metastasis. Home oxygen assessment was completed and patient did not qualify for home oxygen, no fever or chills overnight, lateral signs are stable, breathing comfortably. From pulmonary perspective patient can be considered for discharge, and we recommend seven-day course of Levaquin 750 mg daily post discharge. Outpatient follow-up with Dr. Porter Objective - Vital Signs Vital signs: Vital Signs Temp 98.4 F 09/07/21 07:55 Pulse 67 09/07/21 07:55 Resp 18 09/07/21 07:55 BP 109/65 09/07/21 07:55 Pulse Ox 98 09/07/21 10:00 FiO2 Intake & Output 09/06/21 09/07/21 09/07/21 18:59 06:59 18:59 Other: Voiding Method Toilet Toilet # Voids 4 1 - Exam GENERAL EXAM: Alert, pleasant, 86-year-old white male, liters of oxygen pulse ox is 97% comfortable in no apparent distress. HEAD: Normocephalic/atraumatic. EYES: Normal reaction of pupils, equal size. Conjunctiva pink, sclera white. NOSE: Clear with pink turbinates. THROAT: No erythema or exudates. NECK: No masses, no JVD, no thyroid enlargement, no adenopathy. CHEST: No chest wall deformity. Symmetrical expansion. LUNGS: Equal air entry with no crackles, wheeze, rhonchi or dullness. CVS: Regular rate and rhythm, normal S1 and S2, no gallops, no murmurs, no rubs ABDOMEN: Soft, nontender. No hepatosplenomegaly, normal bowel sounds, no guarding or rigidity. EXTREMITIES: No clubbing, no edema, no cyanosis, 2+ pulses and upper and lower extremities. MUSCULOSKELETAL: Muscle strength and tone normal. SPINE: No scoliosis or deformity SKIN: No rashes CENTRAL NERVOUS SYSTEM: Alert and oriented -3. No focal deficits, tone is normal in all 4 extremities. PSYCHIATRIC: Alert and oriented -3. Appropriate affect. Intact judgment and insight. - Labs CBC & Chem 7: 09/07/21 06:03 09/07/21 06:01 Labs: Abnormal Lab Results - Last 24 Hours (Table) 09/07/21 09/07/21 Range/Units 06:01 06:03 WBC 12.39 H (4.50-10.00) X 10*3/uL RBC 4.13 L (4.40-5.60) X 10*6/uL Hgb 12.1 L (13.0-17.0) g/dL Hct 36.6 L (39.6-50.0) % RDW 16.4 H (11.5-14.5) % MPV 9.2 L (9.5-12.2) fL Est GFR (CKD-EPI)NonAf 53.7 L (60.0-200.0) AST 43 H (14-35) U/L ALT 118 H (10-49) U/L Alkaline Phosphatase 281 H (41-126) U/L Albumin 3.5 L (3.8-4.9) g/dL Albumin/Globulin Ratio 1.13 L (1.60-3.17) g/dL Microbiology - Last 24 Hours (Table) 09/04/21 02:20 Blood Culture - Preliminary Blood No Growth after 72 hours 09/04/21 02:15 Blood Culture - Preliminary Blood No Growth after 72 hours Assessment and Plan Plan: Assessment: Acute febrile illness with leukocytosis and mild lactic acidosis, currently under investigation. The patient is being worked up for underlying sepsis. Exact source is not clear. Acute leukocytosis Squamous cell lung cancer. The patient has a large left upper lobe mass with some mediastinal lymphadenopathy. Bronchoscopy and EBUS yielded a squamous cell carcinoma and the transbronchial biopsies from the left upper lobe was positive . EBUS samplings of the lymph nodes were negative for malignancy. This is a T4 lesion, invading the mediastinum. Please refer to the PET scan. Altered mentation, currently under investigation, possibly related to underlying infection COPD Diabetes mellitus Hypertension Iatrogenic pneumothorax post bronchoscopy, expected outcome of procedure, recovered on subsequent chest x-rays Peripheral neuropathy History of falls Abnormal LFTs, rule out underlying cholecystitis or cholelithiasis Acute kidney injury, improving Elevated liver enzymes, improving. Gallbladder ultrasound showed no evidence of acute cholecystitis, hepatitis panel is negative Plan: Patient has been stable Breathing comfortably No fever or chills Levaquin 750 mg daily for 7 more days post discharge Outpatient follow-up with Dr. Porter in 7-10 days I have personally seen and examined the patient, performed the documentation and the assessment and plan as written. Number of minutes spent on the visit: [10] Time with Patient: Less than 30
--- NOTE | 2021-09-07 16:08 | P.DS ---
Providers Date of admission: 09/04/21 05:18 Attending physician: Pietro Clinton Consults: 09/04/21 10:06 Consult Physician Routine Consulting Provider: Girma Porter Consult Reason/Comments: hx lung CA. known to pt Do you want consulting provider notified?: Already Contacted 09/04/21 10:20 Consult Physician Routine Consulting Provider: John Ramirez Consult Reason/Comments: new dx of lung CA. eval and tx. Do you want consulting provider notified?: Yes 09/04/21 17:38 Consult Physician Routine Consulting Provider: Rolf Altamirano Consult Reason/Comments: Squamous Cell lung Ca - Rec for concurrent chemo/rad Do you want consulting provider notified?: Yes, Notify in am Primary care physician: Pietro Clinton - Discharge Diagnosis(es) (1) Constipation Current Visit: Yes Status: Acute (2) Liver enzyme elevation Current Visit: Yes Status: Acute (3) Non-small cell cancer of left lung Current Visit: Yes Status: Acute (4) Squamous cell lung cancer Current Visit: Yes Status: Acute Priority: High (5) Weakness Current Visit: Yes Status: Acute Hospital Course: This is a discharge summary an 78-year-old white male who is essentially admitted secondary to pneumonia but was found to have lung mass which proved to be new-onset squamous cell cancer. The patient had metastatic workup which was nominal. Localized disease is noted. He will be sent home with antibiotic treatment. Appreciate oncology and pulmonology input. The patient is tolerating diet and will be stabilized with discharge her home health to be instituted as Patient Condition at Discharge: Serious Plan - Discharge Summary Discharge Rx Participant: No New Discharge Prescriptions: New Levofloxacin [Levaquin] 750 mg PO DAILY 7 Days #7 tab Continue Vitamin E (Dl,Tocopheryl Acet) [Vitamin E (400 Iu = 180 mg)] 400 unit PO DAILY Aspirin 81 mg PO HS Vits A,C,E/Lutein/Minerals [Ocuvite with Lutein Tablet] 1 tab PO DAILY traMADol HCL [Ultram] 50 mg PO TID PRN PRN Reason: Pain Tamsulosin HCl [Flomax] 0.8 mg PO HS Furosemide [Lasix] 40 mg PO DAILY #90 tablet Vitamin B 300mg 300 mg PO DAILY Apixaban [Eliquis] 2.5 mg PO BID Cholecalciferol [Vitamin D3 (10 Mcg = 400 Iu)] 10 mcg PO DAILY Finasteride [Proscar] 5 mg PO DAILY Docusate [Colace] 100 mg PO DAILY DULoxetine HCL [Cymbalta] 60 mg PO DAILY Discharge Medication List Aspirin 81 mg PO HS 06/29/13 [History] Vitamin E (Dl,Tocopheryl Acet) [Vitamin E (400 Iu = 180 mg)] 400 unit PO DAILY 06/29/13 [History] Vits A,C,E/Lutein/Minerals [Ocuvite with Lutein Tablet] 1 tab PO DAILY 04/09/15 [History] Tamsulosin HCl [Flomax] 0.8 mg PO HS 12/19/19 [History] traMADol HCL [Ultram] 50 mg PO TID PRN 12/19/19 [History] Furosemide [Lasix] 40 mg PO DAILY #90 tablet 12/22/19 [Rx] Apixaban [Eliquis] 2.5 mg PO BID 07/30/21 [History] Cholecalciferol [Vitamin D3 (10 Mcg = 400 Iu)] 10 mcg PO DAILY 07/30/21 [History] DULoxetine HCL [Cymbalta] 60 mg PO DAILY 07/30/21 [History] Docusate [Colace] 100 mg PO DAILY 07/30/21 [History] Finasteride [Proscar] 5 mg PO DAILY 07/30/21 [History] Vitamin B 300mg 300 mg PO DAILY 07/30/21 [History] Levofloxacin [Levaquin] 750 mg PO DAILY 7 Days #7 tab 09/06/21 [Rx] Follow up Appointment(s)/Referral(s): Maria Dolores Fields MD [STAFF PHYSICIAN] - 09/19/21 2:00 pm Pietro Clinton MD [Primary Care Provider] - 3 Days Samm Perez [NON-STAFF] - Girma Porter MD [STAFF PHYSICIAN] - 1 Week Discharge Disposition: HOME WITH HOME HEALTH SERVICES
--- NOTE | 2021-09-07 17:57 | P.PN ---
Subjective Progress Note Date: 09/07/21 Principal diagnosis: Squamous cell lung cancer, new diagnosis In f/u today pt in chair, ate lunch, feels pretty good. Denies pain, difficulty breathing, he is able to ambulate independently. Objective - Vital Signs Vital signs: Vital Signs Temp 98.4 F 09/07/21 07:55 Pulse 67 09/07/21 07:55 Resp 18 09/07/21 07:55 BP 109/65 09/07/21 07:55 Pulse Ox 98 09/07/21 10:00 FiO2 Intake & Output 09/06/21 09/07/21 09/07/21 18:59 06:59 18:59 Other: Voiding Method Toilet Toilet # Voids 4 1 - Constitutional General appearance: Present: average body habitus, cooperative, no acute distress - EENT Eyes: Present: anicteric sclerae, EOMI ENT: Present: hearing grossly normal - Respiratory Respiratory: bilateral: CTA - Cardiovascular Rhythm: regular Heart sounds: normal: S1, S2 - Peripheral edema leg Peripheral Edema: bilateral: None - Neurologic Neurologic: Present: CNII-XII intact - Musculoskeletal Musculoskeletal: Present: strength equal bilaterally - Psychiatric Psychiatric: Present: A&O x's 3, appropriate affect, intact judgment & insight - Labs CBC & Chem 7: 09/07/21 06:03 09/07/21 06:01 Labs: Abnormal Lab Results - Last 24 Hours (Table) 09/07/21 09/07/21 Range/Units 06:01 06:03 WBC 12.39 H (4.50-10.00) X 10*3/uL RBC 4.13 L (4.40-5.60) X 10*6/uL Hgb 12.1 L (13.0-17.0) g/dL Hct 36.6 L (39.6-50.0) % RDW 16.4 H (11.5-14.5) % MPV 9.2 L (9.5-12.2) fL Est GFR (CKD-EPI)NonAf 53.7 L (60.0-200.0) AST 43 H (14-35) U/L ALT 118 H (10-49) U/L Alkaline Phosphatase 281 H (41-126) U/L Albumin 3.5 L (3.8-4.9) g/dL Albumin/Globulin Ratio 1.13 L (1.60-3.17) g/dL Microbiology - Last 24 Hours (Table) 09/04/21 02:20 Blood Culture - Preliminary Blood No Growth after 72 hours 09/04/21 02:15 Blood Culture - Preliminary Blood No Growth after 72 hours - Imaging and Cardiology CT Scan - head: report reviewed Assessment and Plan (1) Squamous cell lung cancer Current Visit: Yes Status: Acute Priority: High Code(s): C34.90 - MALIGNANT NEOPLASM OF UNSP PART OF UNSP BRONCHUS OR LUNG SNOMED Code(s): 243947992 Plan: CT imaging, appears to be limited disease, CT brain neg for mets. F/U appt with Oncologist in chart. They will discuss treatment options, prognosis with and without treatment, benefits vs toxicities of treatment. Biomarker testing confirmed ordered, that will be reviewed to see if targeted agents are a treatment option. Will also discuss Pt and family goals for any treatment and impact of treatment on quantity and quality of life. LFTs stable/improvement with conservative mgmt. US no acute cholecystitis or hepatitis. Pt is ok from a Onc standpoint for discharge once cleared by Attending and Consulting Physicians Doctor attests: I performed a history and physical examination of this patient, developed impression and plan of care. Discussed with dictator. I agree with dictators note, documented as a scribe.
[2021-09-07] MEDS: TAMSULOSIN 0.4 MG CAP.ER.24H PO SCH (21:16)
[2021-09-07] MEDS: ASPIRIN 81 MG PO SCH (21:19)
[2021-09-08] MEDS: PIPERACILLIN-TAZOBACTAM 3.375 GM in SODIUM CHLORIDE 0.9% 100 ML IVPB SCH ×3 (04:06→20:05)
[2021-09-08] MEDS: SENNOSIDES-DOCUSATE SODIUM 1 EACH TAB PO SCH ×2 (12:24→20:06)
[2021-09-08] MEDS: FINASTERIDE 5 MG TAB PO SCH (12:24)
[2021-09-08] MEDS: DOCUSATE 100 MG CAP PO SCH (12:25)
[2021-09-08] MEDS: FAMOTIDINE 20 MG TAB PO SCH (12:25)
[2021-09-08] MEDS: APIXABAN 2.5 MG TABLET PO SCH ×2 (12:25→20:06)
[2021-09-08] MEDS: FUROSEMIDE 40 MG TAB PO SCH (12:25)
[2021-09-08] MEDS: DULoxetine HCL 60 MG CAPSULE.DR PO SCH (12:25)
[2021-09-08] MEDS: CHOLECALCIFEROL 10 MCG (400 IU) TABLET PO SCH (12:26)
[2021-09-08] MEDS: TAMSULOSIN 0.4 MG CAP.ER.24H PO SCH (20:05)
[2021-09-08] MEDS: ASPIRIN 81 MG PO SCH (20:06)
[2021-09-08] MEDS: traMADol 50 MG TAB PO PRN (20:21)
[2021-09-09] MEDS: PIPERACILLIN-TAZOBACTAM 3.375 GM in SODIUM CHLORIDE 0.9% 100 ML IVPB SCH ×2 (03:22→10:37)
[2021-09-09] MEDS: FAMOTIDINE 20 MG TAB PO SCH (08:03)
[2021-09-09] MEDS: FUROSEMIDE 40 MG TAB PO SCH (08:03)
[2021-09-09] MEDS: DOCUSATE 100 MG CAP PO SCH (08:03)
[2021-09-09] MEDS: FINASTERIDE 5 MG TAB PO SCH (08:03)
[2021-09-09] MEDS: SENNOSIDES-DOCUSATE SODIUM 1 EACH TAB PO SCH (08:03)
[2021-09-09] MEDS: DULoxetine HCL 60 MG CAPSULE.DR PO SCH (08:03)
[2021-09-09] MEDS: APIXABAN 2.5 MG TABLET PO SCH (08:03)
[2021-09-09] MEDS: CHOLECALCIFEROL 10 MCG (400 IU) TABLET PO SCH (08:04)
[2021-09-09 11:33] VITALS: BP 111/67; PULSE 84; RESP 18; TEMP 98
== END 2021-09-09 12:36 | disposition home health service (06) | DRG 193 ==
LOC: EC 01:56 → 4SSUR 05:18
PROVIDERS: ADMIT Family Medicine; ATTEND Family Medicine
DX: J18.9 Pneumonia, unspecified organism (principal); G93.41 Metabolic encephalopathy; J96.01 Acute respiratory failure with hypoxia; C34.92 Malignant neoplasm of unspecified part of left bronchus or lung; J44.0 Chronic obstructive pulmonary disease with (acute) lower respiratory infection; N17.9 Acute kidney failure, unspecified; R65.10 Systemic inflammatory response syndrome (SIRS) of non-infectious origin without acute organ dysfunction; J93.83 Other pneumothorax; E87.2 Acidosis; K59.00 Constipation, unspecified; N28.1 Cyst of kidney, acquired; R56.9 Unspecified convulsions; Z20.822 Contact with and (suspected) exposure to COVID-19; Z66 Do not resuscitate; E11.40 Type 2 diabetes mellitus with diabetic neuropathy, unspecified; H91.90 Unspecified hearing loss, unspecified ear; I11.0 Hypertensive heart disease with heart failure; I50.9 Heart failure, unspecified; Z87.891 Personal history of nicotine dependence; R74.01 Elevation of levels of liver transaminase levels; R94.5 Abnormal results of liver function studies; Z28.21 Immunization not carried out because of patient refusal; Z79.01 Long term (current) use of anticoagulants; Z79.82 Long term (current) use of aspirin; Z79.899 Other long term (current) drug therapy; Z80.8 Family history of malignant neoplasm of other organs or systems; Z83.3 Family history of diabetes mellitus; Z85.828 Personal history of other malignant neoplasm of skin; Z91.81 History of falling; Z99.81 Dependence on supplemental oxygen
CPT/HCPCS: 36415; 70450; 70460; 71046; 74177; 76705; 80053; 80074; 81001; 82150; 82306; 82553; 82607; 82668; 82728; 82746; 83540; 83550; 83605; 83615; 83690; 83735; 83921; 84145; 84425; 85025; 85027; 85610; 85652; 85730; 87040; 87502; 87635; 93005; 96361; 96365; 96366; 99285

== ENCOUNTER 2022-01-19 11:57 | Emergency (ER) | payer MEDICARE ==
[2022-01-19 12:36] VITALS: TEMP 97.7
--- NOTE | 2022-01-19 12:59 | XR ---
EXAMINATION TYPE: XR chest 2V DATE OF EXAM: 01/19/2022 COMPARISON: 10/27/2021 TECHNIQUE: PA and lateral views submitted. HISTORY: Cough FINDINGS: Large mass left upper lobe measuring 6.5 cm. Underlying COPD is seen and there is arthropathy of the shoulders. Chronic rib deformities are seen. 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 Cardiac device is seen and there is hyperinflation compatible with COPD. Coarsened interstit ium is stable correlate for interstitial pulmonary fibrosis. Hypertrophic and degenerative changes of the spine. IMPRESSION: 1. Stable appearing large left upper lobe lung mass correlate for history of malignancy. 2. COPD. Correlate for chronic interstitial pulmonary fibrosis.
[2022-01-19 14:12] LABS: Basophils # (A) 0.2 k/uL (0-0.2); Basophils % (A) 1 %; Eosinophils # (A) 0.2 k/uL (0-0.7); Eosinophils % (A) 1 %; HCT 42.8 % (39.0-53.0); HGB 14.7 gm/dL (13.0-17.5); Lymphocytes # (A) 1.2 k/uL (1.0-4.8); Lymphocytes % (A) 8 %; MCHC 34.3 g/dL (31.0-37.0); MCV 87.5 fL (80.0-100.0); Monocytes # (A) 0.5 k/uL (0-1.0); Monocytes % (A) 3 %; Neutrophils # (A) 12.3 k/uL (1.3-7.7); Neutrophils % (A) 86 %; Platelet Count 402 k/uL (150-450); RBC 4.89 m/uL (4.30-5.90); RDW 14.5 % (11.5-15.5); WBC 14.4 k/uL (3.8-10.6)
[2022-01-19 14:24] LABS: Albumin 4.2 g/dL (3.5-5.0); Calcium 9.5 mg/dL (8.4-10.2); Magnesium 2.1 mg/dL (1.6-2.3); Potassium 4.6 mmol/L (3.5-5.1); Total Bilirubin 1.1 mg/dL (0.2-1.3); Total Protein 8.3 g/dL (6.3-8.2)
[2022-01-19 14:30] LABS: INR 1.2 (<1.2); Partial Thromboplastin Time 25.1 sec (22.0-30.0); Prothrombin Time 12.1 sec (9.0-12.0)
--- NOTE | 2022-01-19 17:51 | ED ---
General Adult HPI - General Chief complaint: Shortness of Breath Stated complaint: nausea/vomiting Time Seen by Provider: 01/19/22 17:25 Source: patient, family, RN notes reviewed, old records reviewed Mode of arrival: ambulatory Limitations: no limitations - History of Present Illness Initial comments: This is an 86-year-old male presents emergency Department with a recent past medical history significant for lung cancer for which she shows no treatment. Patient states he was diagnosed in August. Patient states over the last couple of months she's had a considerable decrease in his appetite. Patient states he also has been much more fatigued and weak over the last 2 weeks and very short of breath as well. Patient denies any recent fever chills or cough. Patient denies any abdominal pain patient patient states he is mildly nauseous particul cherelle when he eats food and he has vomited occasionally but not very much per patient denies diarrhea. Patient denies abdominal pain. Patient denies lightheadedness dizziness per patient denies any numbness or weakness. - Related Data Home Medications Medication Instructions Recorded Confirmed Aspirin 81 mg PO HS 06/29/13 01/19/22 Vitamin E (Dl,Tocopheryl Acet) 400 unit PO DAILY 06/29/13 01/19/22 [Vitamin E (400 Iu = 180 mg)] Vits A,C,E/Lutein/Minerals 1 tab PO DAILY 04/09/15 01/19/22 [Ocuvite with Lutein Tablet] Tamsulosin HCl [Flomax] 0.8 mg PO HS 12/19/19 01/19/22 Apixaban [Eliquis] 2.5 mg PO BID 07/30/21 01/19/22 Cholecalciferol [Vitamin D3 (10 10 mcg PO DAILY 07/30/21 01/19/22 Mcg = 400 Iu)] DULoxetine HCL [Cymbalta] 60 mg PO DAILY 07/30/21 01/19/22 Docusate [Colace] 100 mg PO DAILY 07/30/21 01/19/22 Finasteride [Proscar] 5 mg PO DAILY 07/30/21 01/19/22 Vitamin B 300mg 300 mg PO DAILY 07/30/21 01/19/22 Amiodarone [Cordarone] 200 mg PO DAILY 01/19/22 01/19/22 Previous Rx's Medication Instructions Recorded Furosemide [Lasix] 40 mg PO DAILY #90 tablet 11/09/20 traMADol HCl [Ultram] 50 mg PO TID PRN #9 tab 09/08/21 Azithromycin [Zithromax Tri-Antoni (3 500 mg PO DAILY 3 Days #3 tab 01/19/22 tabs)] Allergies Allergy/AdvReac Type Severity Reaction Status Date / Time No Known Allergies Allergy Verified 01/19/22 19:13 Review of Systems ROS Statement: Those systems with pertinent positive or pertinent negative responses have been documented in the HPI. ROS Other: All systems not noted in ROS Statement are negative. Past Medical History Past Medical History: Cancer Additional Past Medical History / Comment(s): see Dr Goldsmith H&P, skin cancer lung mass History of Any Multi-Drug Resistant Organisms: None Reported Past Surgical History: Appendectomy, Hernia Repair, Joint Replacement, Orthopedic Surgery, Pacemaker Additional Past Surgical History / Comment(s): skin cancer removed from shoulder, left hip replacement, tito cataracts, ring placed in urethra Past Anesthesia/Blood Transfusion Reactions: Previous Problems w/ Anesthesia, Motion Sickness Additional Past Anesthesia/Blood Transfusion Reaction / Comment(s): spinal headache with spinal anesthesia Type of Cardiac Device: Permanent Pacemaker Device Placement Date:: unknown Past Psychological History: No Psychological Hx Reported Smoking Status: Former smoker Past Alcohol Use History: None Reported Past Drug Use History: None Reported - Past Family History Mother Family Medical History: Diabetes Mellitus Sister(s) Family Medical History: Cancer Additional Family Medical History / Comment(s): Bone CA Brother(s) Additional Family Medical History / Comment(s): Heart issues. Ca of the throat Son(s) Family Medical History: Cancer General Exam - General Exam Comments Initial Comments: GENERAL: Patient is well-developed and well-nourished. Patient is nontoxic and well- hydrated and is in mild distress. ENT: Neck is soft and supple. No significant lymphadenopathy is noted. Oropharynx is clear. Moist mucous membranes. Neck has full range of motion without eliciting any pain. EYES: The sclera were anicteric and conjunctiva were pink and moist. Extraocular movements were intact and pupils were equal round and reactive to light. Eyelids were unremarkable. PULMONARY: Unlabored respirations. Good breath sounds bilaterally. No audible rales rhonchi or wheezing was noted. CARDIOVASCULAR: There is a regular rate and rhythm without any murmurs gallops or rubs. ABDOMEN: Soft and nontender with normal bowel sounds. SKIN: Skin is clear with no lesions or rashes and otherwise unremarkable. NEUROLOGIC: Patient is alert and oriented x3. Cranial nerves II through XII are grossly intact. Motor and sensory are also intact. Normal speech, volume and content. Symmetrical smile. MUSCULOSKELETAL: Normal extremities with adequate strength and full range of motion. LYMPHATICS: No significant lymphadenopathy is noted PSYCHIATRIC: Normal psychiatric evaluation. Limitations: no limitations Course Vital Signs 01/19/22 01/19/22 12:29 19:00 Temperature 97.7 F Pulse Rate 112 H 78 Respiratory 18 18 Rate Blood Pressure 112/70 142/78 O2 Sat by Pulse 96 96 Oximetry Medical Decision Making - Medical Decision Making EKG was interpreted by me EKG shows a sinus rhythm at 60 bpm KS interval 192 QRS is under 27 QT interval 421 QTC is 4:30. Patient's EKG shows some ST segment depression in leads V2 through the V6. CT of the chest was interpreted by me showed no obvious PE there was a large left upper lobe mass. Radiology read it as increase in size compared to the other CAT scan in August and there was some areas of atelectasis. Chest x-ray is interpreted by me. Chest x-ray also shows a left upper lobe mass I started the patient on Rocephin because he has quite a cough and occasionally coughs up some sputum according to family. Patient is given 1 g in the emergency department - Lab Data Result diagrams: 01/19/22 13:41 01/19/22 13:41 Lab Results 01/19/22 01/19/22 01/19/22 Range/Units 13:41 13:41 13:41 WBC 14.4 H (3.8-10.6) k/uL RBC 4.89 (4.30-5.90) m/uL Hgb 14.7 (13.0-17.5) gm/dL Hct 42.8 (39.0-53.0) % MCV 87.5 (80.0-100.0) fL MCH 30.0 (25.0-35.0) pg MCHC 34.3 (31.0-37.0) g/dL RDW 14.5 (11.5-15.5) % Plt Count 402 (150-450) k/uL MPV 7.0 Neutrophils % 86 % Lymphocytes % 8 % Monocytes % 3 % Eosinophils % 1 % Basophils % 1 % Neutrophils # 12.3 H (1.3-7.7) k/uL Lymphocytes # 1.2 (1.0-4.8) k/uL Monocytes # 0.5 (0-1.0) k/uL Eosinophils # 0.2 (0-0.7) k/uL Basophils # 0.2 (0-0.2) k/uL PT 12.1 H (9.0-12.0) sec INR 1.2 H (<1.2) APTT 25.1 (22.0-30.0) sec Sodium 135 L (137-145) mmol/L Potassium 4.6 (3.5-5.1) mmol/L Chloride 97 L (98-107) mmol/L Carbon Dioxide 27 (22-30) mmol/L Anion Gap 11 mmol/L BUN 28 H (9-20) mg/dL Creatinine 1.36 H (0.66-1.25) mg/dL Est GFR (CKD-EPI)AfAm 53 (>60 ml/min/1.73 sqM) Est GFR (CKD-EPI)NonAf 46 (>60 ml/min/1.73 sqM) Glucose 127 H (74-99) mg/dL Calcium 9.5 (8.4-10.2) mg/dL Magnesium 2.1 (1.6-2.3) mg/dL Total Bilirubin 1.1 (0.2-1.3) mg/dL AST 25 (17-59) U/L ALT 17 (4-49) U/L Alkaline Phosphatase 124 (38-126) U/L Troponin I (0.000-0.034) ng/mL Total Protein 8.3 H (6.3-8.2) g/dL Albumin 4.2 (3.5-5.0) g/dL Urine Color Urine Appearance (Clear) Urine pH (5.0-8.0) Ur Specific Golden (1.001-1.035) Urine Protein (Negative) Urine Glucose (UA) (Negative) Urine Ketones (Negative) Urine Blood (Negative) Urine Nitrite (Negative) Urine Bilirubin (Negative) Urine Urobilinogen (<2.0) mg/dL Ur Leukocyte Esterase (Negative) Urine RBC (0-5) /hpf Urine WBC (0-5) /hpf Hyaline Casts (0-2) /lpf Urine Mucus (None) /hpf 01/19/22 01/19/22 Range/Units 13:41 20:33 WBC (3.8-10.6) k/uL RBC (4.30-5.90) m/uL Hgb (13.0-17.5) gm/dL Hct (39.0-53.0) % MCV (80.0-100.0) fL MCH (25.0-35.0) pg MCHC (31.0-37.0) g/dL RDW (11.5-15.5) % Plt Count (150-450) k/uL MPV Neutrophils % % Lymphocytes % % Monocytes % % Eosinophils % % Basophils % % Neutrophils # (1.3-7.7) k/uL Lymphocytes # (1.0-4.8) k/uL Monocytes # (0-1.0) k/uL Eosinophils # (0-0.7) k/uL Basophils # (0-0.2) k/uL PT (9.0-12.0) sec INR (<1.2) APTT (22.0-30.0) sec Sodium (137-145) mmol/L Potassium (3.5-5.1) mmol/L Chloride (98-107) mmol/L Carbon Dioxide (22-30) mmol/L Anion Gap mmol/L BUN (9-20) mg/dL Creatinine (0.66-1.25) mg/dL Est GFR (CKD-EPI)AfAm (>60 ml/min/1.73 sqM) Est GFR (CKD-EPI)NonAf (>60 ml/min/1.73 sqM) Glucose (74-99) mg/dL Calcium (8.4-10.2) mg/dL Magnesium (1.6-2.3) mg/dL Total Bilirubin (0.2-1.3) mg/dL AST (17-59) U/L ALT (4-49) U/L Alkaline Phosphatase (38-126) U/L Troponin I 0.019 (0.000-0.034) ng/mL Total Protein (6.3-8.2) g/dL Albumin (3.5-5.0) g/dL Urine Color Light Yellow Urine Appearance Clear (Clear) Urine pH 6.0 (5.0-8.0) Ur Specific Golden 1.028 (1.001-1.035) Urine Protein Negative (Negative) Urine Glucose (UA) Negative (Negative) Urine Ketones Negative (Negative) Urine Blood Small H (Negative) Urine Nitrite Negative (Negative) Urine Bilirubin Negative (Negative) Urine Urobilinogen <2.0 (<2.0) mg/dL Ur Leukocyte Esterase Negative (Negative) Urine RBC 79 H (0-5) /hpf Urine WBC 4 (0-5) /hpf Hyaline Casts 1 (0-2) /lpf Urine Mucus Occasional H (None) /hpf Disposition Clinical Impression: Weakness, Hematuria, Bronchitis, History of lung cancer Disposition: HOME SELF-CARE Additional Instructions: Patient should follow-up with his oncologist. Patient returns as difficulty breathing or worsening of symptoms. Prescriptions: Azithromycin [Zithromax Tri-Antoni (3 tabs)] 500 mg PO DAILY 3 Days #3 tab Is patient prescribed a controlled substance at d/c from ED?: No Referrals: Pietro Clinton MD [Primary Care Provider] - 1-2 days Time of Disposition: 20:50
[2022-01-19] MEDS ORDERED: SODIUM CHLORIDE 0.9% 500 ML 500 ML IV ONE (18:37)
--- NOTE | 2022-01-19 19:46 | CT ---
EXAMINATION TYPE: CT chest angio for PE DATE OF EXAM: 01/19/2022 COMPARISON: 08/25/2021 HISTORY: SOB, weakness CT DLP: 425 mGycm. Automated Exposure Control for Dose Reduction was Utilized. CONTRAST: CTA scan of the thorax is performed with IV Contrast, patient injected with 100 mL of Isovu e 370. MIP Images are created on CT scanner and reviewed. 3D reconstructed images are created on an independent workstation and reviewed. FINDINGS: The known VIMAL bronchogenic mass, which is contiguous with left hilar and mediastinal (prevascular) ad enopathy, now measures 6.5 cm transverse x 6.3 cm AP x 5.8 cm CC (previously measuring 5.8 x 6.1 x 5. 4 cm). Posterior and superior to the bronchogenic mass is a new 3 cm ill-defined opacity, with differ ential including postobstructive atelectasis versus neoplasm. * The previous study did not utilize IV contrast and, therefore, the status of the left pulmonary ar jg on the prior study cannot be assessed in retrospect. 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 There are no other filling defects within the pulmonary arterial anatomy to suggest pulmonary embolism. * The remainder abnormal lung changes seen on the prior study of 08/25/2021 are unchanged. Pleural spaces: Negative. Mediastinum: No acute aortic findings. Coronary calcifications. Skeletal structures: No focal findings. Visualized subdiaphragmatic structures: No acute findings. 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
[2022-01-19] MEDS ORDERED: cefTRIAXone IN SWFI 1,000 MG/10 ML SYRINGE IVP STA (20:28)
[2022-01-19 20:46] LABS: Appearance,Urine Clear (Clear); Bilirubin,Urine Negative (Negative); Blood,Urine Small (Negative); Color,Urine Light Yellow; Glucose,Urine (UA) Negative (Negative); Hyaline Casts,Urine 1 /lpf (0-2); Ketones,Urine Negative (Negative); Leukocyte Esterase,Urine Negative (Negative); Mucus,Urine Occasional /hpf; Nitrite,Urine Negative (Negative); Protein,Urine Negative (Negative); RBC,Urine 79 /hpf (0-5); Specific Gravity,Urine 1.028 (1.001-1.035); Urobilinogen,Urine <2.0 mg/dL (<2.0); WBC,Urine 4 /hpf (0-5)
[2022-01-19 21:05] VITALS: BP 141/65; PULSE 68; RESP 15
== END 2022-01-19 21:04 | disposition home or self-care (01) ==
LOC: EC 11:57
DX: R53.1 Weakness (principal); R31.9 Hematuria, unspecified; J40 Bronchitis, not specified as acute or chronic; Z85.118 Personal history of other malignant neoplasm of bronchus and lung; Z87.891 Personal history of nicotine dependence
CPT/HCPCS: 36415; 93005; 80053; 83735; 84484; 85025; 85610; 85730; 81001; 71046; 71275; 99285; 96374; 96361 ×2; J0696